=== PATIENT | male | born 1945 | race Caucasian/White ===

== ENCOUNTER 2017-01-18 00:19 | Inpatient (IN) | payer MEDICARE ==
[2017-01-18] VITALS (9 sets, daily range): BP systolic 130–161; BP diastolic 65–84; PULSE 63–97; RESP 16–20; TEMP 97.5–98.5; O2SAT 93–100
[~2017-01-18] VITALS: Ht 175.3 cm; Wt 92.5 kg
[2017-01-18] MEDS ORDERED: CLON0.5T PO (00:30)
[2017-01-18 01:26] LABS: MEAN CELL VOLUME 89.3 FL (80.0-100.0); MEAN CORPUSCULAR HEMOGLOBIN 30.2 PG (27.0-34.0); MEAN CORPUSCULAR HGB CONC 33.8 % (32.0-36.0); PLATELET COUNT 331 TH/MM3 (150-450); RED CELL DISTRIBUTION WIDTH 13.9 % (11.6-17.2); WHITE BLOOD COUNT 8.3 TH/MM3 (4.0-11.0)
[2017-01-18 01:30] LABS: HEMO FLAGS AUTO DIFF
[2017-01-18 01:40] LABS: INTERNATIONAL NORMALIZED RATIO 1.2 RATIO; PROTHROMBIN TIME - PATIENT 13.7 SEC (9.8-11.6)
[2017-01-18 01:57] LABS: ALT (GPT) 288 U/L (12-78); ANION GAP 11 MEQ/L (5-15); AST (GOT) 230 U/L (15-37); BICARBONATE 21.9 MEQ/L (21.0-32.0); BLOOD UREA NITROGEN 61 MG/DL (7-18); CHLORIDE 105 MEQ/L (98-107); GLOMERULAR FILTRATION RATE 17 ML/MIN (>89); POTASSIUM 4.2 MEQ/L (3.5-5.1); SODIUM (NA) 138 MEQ/L (136-145)
[2017-01-18 01:58] LABS: ACETAMINOPHEN LESS THAN 2.0 MCG/ML (10.0-30.0)
[2017-01-18 02:00] LABS: ALKALINE PHOSPHATASE 118 U/L (45-117); TOTAL BILIRUBIN ADULT 0.9 MG/DL (0.2-1.0)
[2017-01-18 02:05] LABS: BANDS 9 % (0-6); BASOPHILS 1 % (0-2); EOSINOPHILS 3 % (0-4); METAMYELOCYTES 1 % (0-1); MYELOCYTES 1 % (0-0); NEUTROPHIL # MANUAL DIFF 6.3 TH/MM3 (1.8-7.7); POLYS (SEG NEUTROPHILS) 65 % (16-70); WBC DIFF SAMPLE 100
[2017-01-18 02:06] LABS: PLATELET ESTIMATE SMEAR NORMAL (NORMAL); SCAN/DIFF FINAL DIFF MANUAL
[2017-01-18 02:07] LABS: HELMET CELLS 1+ (NORMAL); PLATELET MORPHOLOGY NORMAL (NORMAL)
[2017-01-18 03:23] LABS: BACTERIA, URINE RARE /hpf; BLOOD, URINE SMALL (NEG); GLUCOSE,URINE NEG (NEG); HYALINE CAST, URINE 16 /lpf (RARE); KETONE, URINE TRACE mg/dL (NEG); MUCUS URINE FEW /lpf (OCC); NITRITE,URINE NEG (NEG); PH, URINE 5.5 (5.0-8.5); RENAL EPITHELIAL CELLS <1 /hpf; SQUAMOUS EPITHELIAL CELL URINE 1 /hpf (0-5); URINE COLOR YELLOW (YELLW/STRAW)
[2017-01-18 03:24] LABS: COMMENT (UR) CATH-CULTURE IND; CULTURE IF INDICATED CATH CULTURE IND
[2017-01-18 03:29] LABS: AMPHETAMINE, URINE NEG (NEG); BARBITURATES, URINE NEG (NEG); COCAINE, URINE NEG (NEG)
--- NOTE | 2017-01-18 03:29 | PD ---
HPI Chief Complaint: Altered Mental Status Time Seen by Provider: 01:57 Travel History International Travel<30 days: Yes Contact w/Intl Traveler<30days: Yes Name of Country Traveled to: FROM [facility] Traveled to known affect area: Yes (FROM [facility]) History of Present Illness HPI The patient is a 71 year old male who presents to the [facility] emergency department with a history of arriving from [facility] on a flight earlier this evening he had been living in the area [place] the [place] have [place]. His daughter that had not seen him in 10 years arrived at the airport to pick him up and reported that he was altered. The patient reports that he did take 2 clonazepam and had 2 beers while on the flight. The patient arrives slightly confused with a GCS of 14 without any focal neurologic findings. He denies being on any other medications. He reports that he has a history of anxiety and low back pain. He reports that he had low back surgery in [facility] 2-1/2 weeks ago. The patient denies recent fevers, cough, congestion, neck pain, chest pain, shortness of breath, abdominal pain, vomiting, diarrhea, urinary symptoms, one-sided weakness, slurred speech, dizziness, facial droop, difficulty with word finding ability, or vision changes. FORMERLY [facility], [facility] Past Medical History Narrative Medical The patient's past medical history is reportedly significant for anxiety, chronic low back pain with recent low back surgery. Anxiety: Yes Diminished Hearing: No Tetanus Vaccination: < 5 Years Influenza Vaccination: No Past Surgical History Narrative Surgical The patient's past surgical history is significant for low back surgery 2-1/2 weeks ago. Surgical History: No Previous Surgery Social History Alcohol Use: Yes (2 BEER DAILY) Tobacco Use: No Substance Use: No Allergies-Medications (Allergen,Severity, Reaction): Coded Allergies: No Known Allergies (Unverified , 01/18/17) Reported Meds & Prescriptions Reported Meds & Active Scripts Active Reported Clonazepam 0.5 Mg Tab 0.5 Mg PO BID Review of Systems Except as stated in HPI: all other systems reviewed are Neg General / Constitutional: No: Fever Eyes: No: Visual changes HENT: No: Headaches Cardiovascular: No: Chest Pain or Discomfort Respiratory: No: Shortness of Breath Gastrointestinal: No: Abdominal Pain Genitourinary: No: Dysuria Musculoskeletal: No: Pain Skin: No Rash Neurologic: Positive: Change in Mentation, No: Weakness, Focal Abnormalities, Slurred Speech, Paresthesia, Sensory Disturbance Psychiatric: No: Depression Endocrine: No: Polydipsia Hematologic/Lymphatic: No: Easy Bruising Physical Exam Narrative General: The patient is a well-developed well-nourished male in no acute distress. Head and Neck exam: Head is normocephalic atraumatic. Eyes: EOMI, pupils are equal round and reactive to light. Nose: Midline septum with pink mucous membranes Mouth: Dentition unremarkable. Moist mucus membranes. Posterior oropharynx is not erythematous. No tonsillar hypertrophy. Uvula midline. Airway patent. Neck: No palpable lymphadenopathy. No nuchal rigidity. No thyromegaly. Cardiovascular: Regular rate and rhythm without murmurs, gallops, or rubs. . Lungs: Clear to auscultation bilaterally. No wheezes, rhonchi, or rales. Abdomen: Soft, without tenderness to palpation in all 4 quadrants of the abdomen. No guarding, rebound, or rigidity. Normal bowel sounds are audible. No tenderness on palpation of McBurney's point. Negative Villarreal sign. Extremities: No clubbing, cyanosis, or edema. 2+ pulses in all 4 extremities. No calf tenderness on palpation. Back: No spinous process tenderness to palpation. No costovertebral angle tenderness to palpation. Neurologic Exam: Cranial nerves 2-12 were intact on exam. Strength is 5/5 in all 4 extremities. No sensory deficits noted. The patient is oriented to person, however not place. He is oriented to year, however not situation. Skin Exam: No rash noted. Intact skin that is warm and dry. Data Data Last Documented VS Vital Signs Date Time Temp Pulse Resp B/P Pulse Ox O2 Delivery O2 Flow Rate FiO2 01/18/17 03:06 71 16 148/72 98 Room Air 01/18/17 00:23 98.4 Orders Electrocardiogram (01/18/17 00:58) Complete Blood Count With Diff (01/18/17 00:58) Comprehensive Metabolic Panel (01/18/17 00:58) Prothrombin Time / Inr (Pt) (01/18/17 00:58) Troponin I (01/18/17 00:58) Urinalysis - C+S If Indicated (01/18/17 00:58) Blood Glucose (01/18/17 00:58) Ecg Monitoring (01/18/17 00:58) Iv Access Insert/Monitor (01/18/17 00:58) Oximetry (01/18/17 00:58) Drug Screen, Random Urine (01/18/17 00:58) Alcohol (Ethanol) (01/18/17 00:58) Salicylates (Aspirin) (01/18/17 00:58) Tylenol (Acetaminophen) (01/18/17 00:58) Ct Brain W/O Iv Contrast(Rout) (01/18/17 01:58) Ammonia (01/18/17 02:47) Urinary Catheter Insert/Apply (01/18/17 02:47) Urine Culture (01/18/17 02:55) Admit Order (Ed Use Only) (01/18/17 03:36) Diet Npo (01/18/17 Breakfast) Vital Signs (Adult) JENNIFER.Q4H (01/18/17 03:34) Sodium Chlor 0.9% 1000 Ml Inj (Ns 1000 M (01/18/17 03:45) Hepatitis Profile (01/18/17 03:34) Comprehensive Metabolic Panel (01/19/17 06:00) Ondansetron Inj (Zofran Inj) (01/18/17 03:45) Labs Laboratory Tests Test 01/18/17 01/18/17 01/18/17 01:00 02:55 03:00 White Blood Count 8.3 TH/MM3 Red Blood Count 3.70 MIL/MM3 Hemoglobin 11.1 GM/DL Hematocrit 33.0 % Mean Corpuscular Volume 89.3 FL Mean Corpuscular Hemoglobin 30.2 PG Mean Corpuscular Hemoglobin 33.8 % Concent Red Cell Distribution Width 13.9 % Platelet Count 331 TH/MM3 Mean Platelet Volume 7.8 FL Neutrophils (%) (Auto) % Lymphocytes (%) (Auto) % Monocytes (%) (Auto) % Eosinophils (%) (Auto) % Basophils (%) (Auto) % Neutrophils # (Auto) TH/MM3 Lymphocytes # (Auto) TH/MM3 Monocytes # (Auto) TH/MM3 Eosinophils # (Auto) TH/MM3 Basophils # (Auto) TH/MM3 CBC Comment AUTO DIFF Differential Total Cells 100 Counted Neutrophils % (Manual) 65 % Band Neutrophils % 9 % Lymphocytes % 12 % Monocytes % 8 % Eosinophils % 3 % Basophils % 1 % Neutrophils # (Manual) 6.3 TH/MM3 Metamyelocytes 1 % Myelocytes 1 % Differential Comment FINAL DIFF MANUAL Atypical Lymphocytes % Platelet Estimate NORMAL Platelet Morphology Comment NORMAL Helmet Cells 1+ Prothrombin Time 13.7 SEC Prothromb Time International 1.2 RATIO Ratio Sodium Level 138 MEQ/L Potassium Level 4.2 MEQ/L Chloride Level 105 MEQ/L Carbon Dioxide Level 21.9 MEQ/L Anion Gap 11 MEQ/L Blood Urea Nitrogen 61 MG/DL Creatinine 3.52 MG/DL Estimat Glomerular Filtration 17 ML/MIN Rate Random Glucose 103 MG/DL Calcium Level 9.2 MG/DL Total Bilirubin 0.9 MG/DL Aspartate Amino Transf 230 U/L (AST/SGOT) Alanine Aminotransferase 288 U/L (ALT/SGPT) Alkaline Phosphatase 118 U/L Troponin I LESS THAN 0.02 NG/ML Total Protein 7.3 GM/DL Albumin 2.3 GM/DL Salicylates Level LESS THAN 1.7 MG/DL Acetaminophen Level LESS THAN 2.0 MCG/ML Ethyl Alcohol Level LESS THAN 3 MG/DL Urine Color YELLOW Urine Turbidity HAZY Urine pH 5.5 Urine Specific [place] 1.020 Urine Protein 100 mg/dL Urine Glucose (UA) NEG mg/dL Urine Ketones TRACE mg/dL Urine Occult Blood SMALL Urine Nitrite NEG Urine Bilirubin NEG Urine Urobilinogen LESS THAN 2.0 MG/DL Urine Leukocyte Esterase NEG Urine RBC 2 /hpf Urine WBC 3 /hpf Urine Squamous Epithelial 1 /hpf Cells Urine Renal Epithelial Cells <1 /hpf Urine Amorphous Sediment RARE Urine Bacteria RARE /hpf Urine Hyaline Casts 16 /lpf Urine Mucus FEW /lpf Microscopic Urinalysis Comment CATH-CULTURE IND Urine Opiates Screen POS Urine Barbiturates Screen NEG Urine Amphetamines Screen NEG Urine Benzodiazepines Screen POS Urine Cocaine Screen NEG Urine Cannabinoids Screen NEG Ammonia 18 MCMOL/L MDM Medical Decision Making Medical Screen Exam Complete: Yes Emergency Medical Condition: Yes Medical Record Reviewed: Yes Interpretation(s) Last Impressions Head CT 01/18/17 0158 Signed Impressions: Service Date/Time: Wednesday, January 18, 2017 03:56 - CONCLUSION: Normal examination. Pascual Trevizo Jr., MD Differential Diagnosis Hepatic encephalopathy, versus alcohol intoxication, versus other substance intoxication, versus sepsis with encephalopathy, versus metabolic encephalopathy , versus intracranial abnormality Narrative Course During the course of the patients emergency department visit, the patients history, examination, and differential diagnosis were reviewed with the patient. The patient had IV access obtained and blood work sent for analysis. The patient was placed on a carpenter bridge with oximetry and blood pressure monitoring. An EKG was done on arrival. The patient's EKG shows a sinus rhythm heart rate is 69, no acute ST segment elevation or depression. T waves are inverted in lead 3, V1. The patient was provided normal saline IV fluids. The patient was unable to urinate and was noted to be in acute renal failure. A Rosa catheter was placed to gravity to monitor urine output and rule out obstruction. The patients laboratory studies were reviewed and remarkable for a white count of 8.3, hemoglobin 11.1, platelets 331 with 2-5 neutrophils, 9 bands, 12 lymphs , CMP is remarkable for a BUN of 61, creatinine 3.5 to, AST 2:30, ALT 288, alkaline phosphatase 118 with a normal total bilirubin at 0.9, ammonia level was 18, troponin I less than 0.02, INR 1.2, urinalysis shows trace ketones, small occult blood, rare bacteria. Urine drug screen is positive for opiates, benzodiazepines. Alcohol level is less than 3, salicylate less than 1.7, acetaminophen less than 2 Radiology studies were reviewed and remarkable for a CT scan of the brain showed no acute abnormality. The patients results were discussed with the patient, including the plan of care. I explained that further testing and/ or monitoring is indicated based on the patients history, examination, and/ or laboratory findings. Therefore, I recommended admission for additional evaluation. The patient expressed understanding and was agreeable with this plan. The patient was admitted to the hospital in stable condition and [facility] Physician Communication Physician Communication The patient's case was discussed with who did agree to admit the patient for further evaluation and treatment at this time. Diagnosis Primary Impression: Altered mental state Qualified Code: R41.0 - Disorientation Additional Impressions: Acute renal failure Qualified Code: N17.9 - Acute renal failure, unspecified acute renal failure type Elevated liver enzymes Admitting Information Admitting Physician Requests: Admit Nichelle Kirk MD Jan 18, 2017 03:29
[2017-01-18] MEDS ORDERED: ONDANSETRON HCL 4 MG/2 ML VIAL IV PUSH PRN (03:45)
[2017-01-18] MEDS: SODIUM CHLOR 0.9% 1000 ML INJ 1,000 ML IV SCH ×2 (04:07→20:50)
--- NOTE | 2017-01-18 04:30 | RADRPT ---
EXAM DATE/TIME: 01/18/2017 03:56 [facility] COMPARISON: No previous studies available for comparison. INDICATIONS : Altered mental status, following taking xanex and drinking alcohol. RADIATION DOSE: 40.08 CTDIvol (mGy) MEDICAL HISTORY : None SURGICAL HISTORY : None. ENCOUNTER: Initial ACUITY: 1 day PAIN SCALE: 2/10 LOCATION: cranial TECHNIQUE: Multiple contiguous axial images were obtained of the head. Using automated exposure control and adj ustment of the mA and/or kV according to patient size, radiation dose was kept as low as reasonably a chievable to obtain optimal diagnostic quality images. FINDINGS: CEREBRUM: The ventricles are normal for age. No evidence of midline shift, mass lesion, hemorrhage or acute in farction. No extra-axial fluid collections are seen. POSTERIOR FOSSA: The cerebellum and brainstem are intact. The 4th ventricle is midline. The cerebellopontine angle i s unremarkable. EXTRACRANIAL: The visualized portion of the orbits is intact. SKULL: The calvaria is intact. No evidence of skull fracture. CONCLUSION: Normal examination. Pascual Trevizo Jr., MD on January 18, 2017 at 4:28 Board Certified Radiologist. This report was verified electronically.
--- NOTE | 2017-01-18 09:10 | EKG ---
Date Performed: 01/18/2017 Time Performed: 00:31:33 PTAGE: 71 years EKG: Sinus rhythm LOW QRS VOLTAGE IN PRECORDIAL LEADS BORDERLINE ECG NO PREVIOUS TRACING DOCTOR: Jose Oseguera Interpretating Date/Time 01/18/2017 09:10:13
--- NOTE | 2017-01-18 09:15 | HHI.HP ---
HPI Service [facility] Primary Care Physician Unknown Admission Diagnosis AMS, ARF, elevated lfts Diagnoses: Travel History International Travel<30 Days: Yes Contact w/Intl Traveler <30 Da: [place] Traveled to: per report patient came from [facility] History of Present Illness Pt is 71 yr old male w PMHX of back pain/lower extremity weakness was brought it to the hospital for altered mental status. Patient states he does not remember how he got here. He does remember getting to the airport in [facility] getting on the plane and admits to drinking about 3 beers yesterday with some medication and from there he does not remember the rest. He does tell me that he was on his way to [facility] to get a second surgery for his back however he was stopping to see his daughter in [place] who has made arrangements for him to get surgery within 3-4 days of arrival. Apparently, he saw a neurosurgeon back in [facility] for severe spinal strain and at that time it was recommended due to his symptoms to get emergent surgery. This occurred about 1.5 weeks ago. He was experiencing weakness right greater than left in his lower extremities. From records in the EMR, The patient reported to the ED physician that he took 2 clonazepam and had 2 beers while on the flight. The patient arrived slightly confused without any focal neurologic findings in the ED. He reported to the physician that he had low back surgery in [facility] 2-1/2 weeks ago. Denies any chest pain, shortness of breath, any cough, abdominal pain. He states he uses a walker to ambulate and had been ambulating prior to arrival here in the ED with his walker. Patient wishes to pursue further management of his back in [facility] in [place]. He denies any fevers or chills. He denies any prior history of kidney or liver disease. He does admit however that he had problem with his kidney a long time ago but that had resolved however it is unsure what the problem was. Otherwise, he says is pretty healthy. Review of Systems 10 point review of systems are negative except for those mentioned in the history of present illness. Past Family Social History Past Medical History Low back pain, lower extremity weakness Per EMR also a history of anxiety Past Surgical History Back surgery in [facility] 1-2 weeks ago Reported Medications Last Impressions Head CT 01/18/17 0158 Signed Impressions: Service Date/Time: Wednesday, January 18, 2017 03:56 - CONCLUSION: Normal examination. 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 SKIN: there is a 3-4 cm open incision in the lower back, some drainage noted. Pt unsure when last time dressing was changed. HEAD: Atraumatic. Normocephalic. EYES: Pupils equal round and reactive. Extraocular motions intact. No scleral icterus. No injection or drainage. ENT: Nose without drainage. Throat without erythema, tonsillar hypertrophy or exudate. Uvula midline. Airway patent. NECK: Trachea midline. No JVD or lymphadenopathy. Supple, nontender, no meningeal signs. CARDIOVASCULAR: Regular rate and rhythm without murmurs RESPIRATORY: Clear to auscultation. Breath sounds equal bilaterally. No wheezes GASTROINTESTINAL: Abdomen soft, non-tender, nondistended. No palpable masses. No guarding. MUSCULOSKELETAL: Extremities without edema. No joint tenderness, effusion, or edema noted. No calf tenderness. Negative Homans sign bilaterally. NEUROLOGICAL: Awake and alert, answers questions appropriately, knows he was on his way to see his daughter here in [place] however he thought that he was in [place], he knows the president is, he knows his name and his date of . Cranial nerves II through XII intact. Pt has difficulty sitting up secondary to back pain. he is able to move his lower extremities however because of the pain i cannot really assess his strength at this time. pt had to roll on his left side for me to examine his back and since wanted to remain in this position Laboratory Laboratory Tests Test 01/18/17 01/18/17 01/18/17 01:00 02:55 03:00 White Blood Count 8.3 Red Blood Count 3.70 Hemoglobin 11.1 Hematocrit 33.0 Mean Corpuscular Volume 89.3 Mean Corpuscular Hemoglobin 30.2 Mean Corpuscular Hemoglobin 33.8 Concent Red Cell Distribution Width 13.9 Platelet Count 331 Mean Platelet Volume 7.8 Neutrophils (%) (Auto) Lymphocytes (%) (Auto) Monocytes (%) (Auto) Eosinophils (%) (Auto) Basophils (%) (Auto) Neutrophils # (Auto) Lymphocytes # (Auto) Monocytes # (Auto) Eosinophils # (Auto) Basophils # (Auto) CBC Comment AUTO DIFF Differential Total Cells 100 Counted Neutrophils % (Manual) 65 Band Neutrophils % 9 Lymphocytes % 12 Monocytes % 8 Eosinophils % 3 Basophils % 1 Neutrophils # (Manual) 6.3 Metamyelocytes 1 Myelocytes 1 Differential Comment FINAL DIFF MANUAL Atypical Lymphocytes Platelet Estimate NORMAL Platelet Morphology Comment NORMAL Helmet Cells 1+ Prothrombin Time 13.7 Prothromb Time International 1.2 Ratio Sodium Level 138 Potassium Level 4.2 Chloride Level 105 Carbon Dioxide Level 21.9 Anion Gap 11 Blood Urea Nitrogen 61 Creatinine 3.52 Estimat Glomerular Filtration 17 Rate Random Glucose 103 Calcium Level 9.2 Total Bilirubin 0.9 Aspartate Amino Transf 230 (AST/SGOT) Alanine Aminotransferase 288 (ALT/SGPT) Alkaline Phosphatase 118 Troponin I LESS THAN 0.02 Total Protein 7.3 Albumin 2.3 Salicylates Level LESS THAN 1.7 Acetaminophen Level LESS THAN 2.0 Ethyl Alcohol Level LESS THAN 3 Urine Color YELLOW Urine Turbidity HAZY Urine pH 5.5 Urine Specific [place] 1.020 Urine Protein 100 Urine Glucose (UA) NEG Urine Ketones TRACE Urine Occult Blood SMALL Urine Nitrite NEG Urine Bilirubin NEG Urine Urobilinogen LESS THAN 2.0 Urine Leukocyte Esterase NEG Urine RBC 2 Urine WBC 3 Urine Squamous Epithelial 1 Cells Urine Renal Epithelial Cells <1 Urine Amorphous Sediment RARE Urine Bacteria RARE Urine Hyaline Casts 16 Urine Mucus FEW Microscopic Urinalysis Comment CATH-CULTURE IND Urine Opiates Screen POS Urine Barbiturates Screen NEG Urine Amphetamines Screen NEG Urine Benzodiazepines Screen POS Urine Cocaine Screen NEG Urine Cannabinoids Screen NEG Ammonia 18 Date/Time Procedure Status Source Growth 01/18/17 02:55 Urine Culture Received Urine Catheterized Urine Pending Result Diagram: 01/18/179901/18/1799 Imaging Last Impressions Head CT 01/18/17 0158 Signed Impressions: Service Date/Time: Monday, January 18, 2017 03:56 - CONCLUSION: Normal examination. Pascual Trevizo Jr., MD Assessment and Plan Assessment and Plan Encephalopathy: Patient found to have a urinary tract infection. The UA. I have started Rocephin IV every 24 hours. Urine culture is pending. Will follow -up. The patient did admit drinking to be 2-3 beers on the flight on his way here and to look for benzos in addition to his alcohol intake, this definitely can cause altered mental status. Alcohol abuse: Patient missed to drinking 3-4 cans of beer on a daily basis. We 'll start him on thiamine, folate and multivitamin. Ativan as needed for seizures. Seizure and fall precautions in place. UTI: see above. on Abx Back sx: recently had back sx in [facility] 1-2 weeks ago. he has an open wound w some drainage noted. wound culture obtained. meat and seafood manager consulted for assistance w wound care dressings. Will at least get an MRI without contrast to assess his lumbar spine (no contrast due to CRISTINO) Acute renal failure: baseline unknown. Start IV fluids and monitor. velez in place. bladder/renal u/s transaminitis: hepatic panel ordered. liver u/s ordered. pt counseled to quit drinking. FEN: NS@100ml/hr, monitor electrolytes, regular diet DVT proph: heparin/ SCD/SHYAM Code Status full Discussed Condition With patient and RN Vera Villalobos MD Jan 18, 2017 09:15
[2017-01-18] MEDS ORDERED: LORazepam 2 MG/ML VIAL IV PUSH PRN (09:30)
[2017-01-18] MEDS: FOLIC ACID 1 MG TAB PO SCH (11:26)
[2017-01-18] MEDS: THIAMINE HCL 100 MG TAB PO SCH (11:26)
[2017-01-18] MEDS: MULTIVITAMIN TAB PO SCH (11:26)
[2017-01-18] MEDS: cefTRIAXone INJ 1,000 MG in SODIUM CHLORIDE 0.9% INJ 100 ML IV SCH (11:27)
[2017-01-18] MEDS ORDERED: SODIUM CHLORIDE 0.9% FLUSH 10 ML FLUSH IV FLUSH PRN (12:00)
[2017-01-18] MEDS ORDERED: NALOXONE HCL 0.4 MG/ML AMP IV PRN (12:00)
[2017-01-18] MEDS ORDERED: chlordiazePOXIDE 25 MG CAP PO PRN (14:30)
[2017-01-18] MEDS: LORazepam 2 MG/ML VIAL IV PUSH PRN (14:50)
--- NOTE | 2017-01-18 18:12 | RADRPT ---
EXAM DATE/TIME: 01/18/2017 12:25 [facility] COMPARISON: No previous studies available for comparison. INDICATIONS : Increased lab values. MEDICAL HISTORY : Anxiety. Increased lab values. SURGICAL HISTORY : None. ENCOUNTER: Initial ACUITY: 1 day PAIN SCORE: 0/10 LOCATION: Bilateral upper quadrant MEASUREMENTS: LIVER: 18.9 cm length COMMON DUCT: 4 mm RIGHT KIDNEY: 11.4 x 5.8 x 5.8 cm LEFT KIDNEY: 12.3 x 4.2 x 6.2 cm SPLEEN: 12.6 cm length AORTA: 2.4cm maximal FINDINGS: Pancreas not well-visualized. Liver enlarged to about 19 cm. Mild gallbladder sludge. No gallstones o r biliary ductal dilatation. No hydronephrosis. 3.8 cm cyst lower pole right kidney. Spleen and aorta are unremarkable. CONCLUSION: 1. Mild hepatic enlargement. 2. Gallbladder sludge without biliary ductal dilatation. 3. No hydronephrosis or perinephric fluid. No free fluid. Dl Sales MD on January 18, 2017 at 18:09 Board Certified Radiologist. This report was verified electronically.
[2017-01-18] MEDS: SODIUM CHLORIDE 0.9% FLUSH 10 ML FLUSH IV FLUSH SCH (20:50)
[2017-01-18] MEDS: HEPARIN SODIUM - SQ 10,000 UNITS/ML VIAL SQ SCH (21:29)
[2017-01-18] MEDS ORDERED: HYDROmorphone HCL PF 1 MG/ML VIAL SQ ONE (21:30)
[2017-01-19 04:05] VITALS: BP 150/74; RESP 18; TEMP 97.4; O2SAT 97
[2017-01-19] MEDS: LORazepam 2 MG/ML VIAL IV PUSH PRN (05:27)
--- NOTE | 2017-01-19 07:46 | HHI.PR ---
Subjective Remarks Having pain in his back when moving, at times it goes up to 9/10. Denies any CP/ SOB/N/V Denies exposure to hepatitis C in the past and also denies any IV drug use. I spoke w pt's daughter who hasn't seen her father for the past 10 years. 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 From her understanding, pt had emergent sx and then was recommended to come to the [facility] to have a second sx in [place] the [place] where pt would be covered. However, when he arrived in [facility] pt was altered and was brought here. Daughter states that pt drinks a lot more than 3-4 beers. he retired in [facility] and enjoys fishing. Her preference would be for patient to be treated here as she lives here in [facility] but she doesn't know if that will be covered. Objective Vitals Vital Signs Date Time Temp Pulse Resp B/P Pulse Ox O2 Delivery O2 Flow Rate FiO2 01/19/17 04:05 97.4 18 150/74 97 01/18/17 23:33 97.5 63 19 152/72 97 01/18/17 20:05 98.0 68 18 140/75 100 01/18/17 13:02 97.8 97 20 161/84 99 01/18/17 08:11 97.7 70 18 130/69 96 I/O 01/18/17 01/18/17 01/18/17 01/19/17 01/19/17 01/19/17 07:00 15:00 23:00 07:00 15:00 23:00 Output Total 1200 ml Balance -1200 ml Output Urine Total 1200 ml Result Diagram: 01/18/17 0100 01/18/17 0100 Imaging Last Impressions Head CT 01/18/17 0158 Signed Impressions: Service Date/Time: Wednesday, January 18, 2017 03:56 - CONCLUSION: Normal examination. Pascual Trevizo Jr., MD Abdomen Ultrasound 01/18/17 0000 Signed Impressions: Service Date/Time: Wednesday, January 18, 2017 12:25 - CONCLUSION: 1. Mild hepatic enlargement. 2. Gallbladder sludge without biliary ductal dilatation. 3. No hydronephrosis or perinephric fluid. No free fluid. Dl Sales MD Objective Remarks GENERAL: This is a well-nourished, well-developed patient, appears comfortable at this time SKIN: there is a 3-4 cm open incision in the lower back, not examined this morning CARDIOVASCULAR: Regular rate and rhythm without murmurs RESPIRATORY: Clear to auscultation. Breath sounds equal bilaterally. No wheezes GASTROINTESTINAL: Abdomen soft, non-tender, nondistended. No palpable masses. No guarding. MUSCULOSKELETAL: Extremities without edema. NEUROLOGICAL: Awake and alert, answers questions appropriately, right lower extremity currently 3/5 and left 3.5-4/ 5. pt has pain w severe pain w movement. sensation is intact. A/P Assessment and Plan Encephalopathy: Patient found to have a urinary tract infection. The UA. I have started Rocephin IV every 24 hours. Urine culture is pending. Will follow -up. The patient did admit drinking to be 2-3 beers on the flight on his way here and took benzos in addition to his alcohol intake, this definitely can cause altered mental status. Alcohol abuse: Patient admits to drinking 3-4 cans of beer on a daily basis. however per daughter he drinks more than this. on thiamine, folate and multivitamin. Ativan as needed for seizures. Librium scheduled. Seizure and fall precautions in place. currently sitter at bedside, no restraints. UTI: see above. on Abx Back sx: recently had back sx in [facility] 1-2 weeks ago. he has an open wound w some drainage noted. Per daughter apparently pt went swimming a couple days after sx. wound culture obtained. rawhide bone roller consulted for assistance w wound care dressings. I have ordered an MRI without contrast to assess his lumbar spine (no contrast due to CRISTINO) however unsure if pt has any metal therefore will order lumbar spine x-rays. I will place a neurosx consult for further recommendations as pt continues to have excruciating pain. Acute renal failure: baseline unknown. On IV fluids and monitor. velez in place. bladder/renal u/s. Labs not yet available this morning. transaminitis: hepatic panel ordered. liver u/s Gallbladder sludge without biliary ductal dilatatio. pt counseled to quit drinking. Hep C +. GI consult in place. FEN: NS@100ml/hr, monitor electrolytes, regular diet DVT proph: heparin/ SCD/SHYAM Discharge Planning d/c pending further work-up and clinical improvement Vera Villalobos MD Jan 19, 2017 07:46
[2017-01-19 07:59] VITALS: BP 140/74; PULSE 71; RESP 19; TEMP 98; O2SAT 98
[2017-01-19] MEDS ORDERED: MORPHINE SULFATE 4 MG/ML INJ IV PUSH PRN (08:00)
[2017-01-19] MEDS: HEPARIN SODIUM - SQ 10,000 UNITS/ML VIAL SQ SCH ×2 (08:17→20:45)
[2017-01-19] MEDS: FOLIC ACID 1 MG TAB PO SCH (08:17)
[2017-01-19] MEDS: MULTIVITAMIN TAB PO SCH (08:17)
[2017-01-19] MEDS: THIAMINE HCL 100 MG TAB PO SCH (08:17)
[2017-01-19] MEDS: cefTRIAXone INJ 1,000 MG in SODIUM CHLORIDE 0.9% INJ 100 ML IV SCH (08:17)
[2017-01-19] MEDS: ACETAMINOPHEN/HYDROcodone 325 MG/10 MG TAB PO PRN (08:18)
[2017-01-19] MEDS: SODIUM CHLORIDE 0.9% FLUSH 10 ML FLUSH IV FLUSH SCH ×2 (08:18→20:22)
[2017-01-19 09:41] LABS: AUTOMATED NEUTROPHIL # 4.9 TH/MM3 (1.8-7.7); BASOPHIL # 0.1 TH/MM3 (0-0.2); BASOPHIL % 0.9 % (0.0-2.0); EOSINOPHIL # 0.4 TH/MM3 (0-0.4); EOSINOPHIL % 5.8 % (0.0-4.0); HEMATOCRIT 29.9 % (39.0-51.0); LYMPH % 19.5 % (9.0-44.0); LYMPHOCYTE # 1.5 TH/MM3 (1.0-4.8); MEAN CELL VOLUME 88.8 FL (80.0-100.0); MEAN CORPUSCULAR HEMOGLOBIN 30.5 PG (27.0-34.0); MEAN CORPUSCULAR HGB CONC 34.4 % (32.0-36.0); MONO % 10.7 % (0.0-8.0); NEUT % 63.1 % (16.0-70.0); PLATELET COUNT 252 TH/MM3 (150-450); RED BLOOD COUNT 3.37 MIL/MM3 (4.50-5.90); RED CELL DISTRIBUTION WIDTH 13.6 % (11.6-17.2); WHITE BLOOD COUNT 7.7 TH/MM3 (4.0-11.0)
[2017-01-19 09:48] LABS: HEMO FLAGS AUTO DIFF
--- NOTE | 2017-01-19 09:53 | RADRPT ---
EXAM DATE/TIME: 01/19/2017 09:38 [facility] COMPARISON: No previous studies available for comparison. INDICATIONS : Mid back pain due to open wound. MEDICAL HISTORY : None. SURGICAL HISTORY : None. ENCOUNTER: Initial ACUITY: 2 days PAIN SCORE: 10/10 LOCATION: middle back FINDINGS: There is straightening of the lumbar lordosis. There is marked narrowing of the L5-S1 interspace wit h sclerosis of vertebral endplates. No evidence of spondylolisthesis. Vertebral body height is main tained. Vascular calcification in the distal aorta. Moderate hypertrophic changes in the posterior elements L4-S1. Pedicle signal levels. Gas is seen throughout loops of small and large bowel. Blad aidan catheter in place. CONCLUSION: Advanced discogenic degenerative changes L5-S1 without evidence of spondylolisthesis. Pascual Gaming MD on January 19, 2017 at 9:50 Board Certified Radiologist. This report was verified electronically.
[2017-01-19 10:03] LABS: CHLORIDE 110 MEQ/L (98-107); POTASSIUM 4.2 MEQ/L (3.5-5.1); SODIUM (NA) 142 MEQ/L (136-145)
[2017-01-19 10:15] LABS: BANDS 1 % (0-6); EOSINOPHILS 9 % (0-4); METAMYELOCYTES 3 % (0-1); NEUTROPHIL # MANUAL DIFF 5.9 TH/MM3 (1.8-7.7); PLATELET ESTIMATE SMEAR NORMAL (NORMAL); PLATELET MORPHOLOGY NORMAL (NORMAL); POLYS (SEG NEUTROPHILS) 73 % (16-70); SCAN/DIFF FINAL DIFF MANUAL; WBC DIFF SAMPLE 100
[2017-01-19 10:16] LABS: ALKALINE PHOSPHATASE 125 U/L (45-117); ALT (GPT) 287 U/L (12-78); ANION GAP 8 MEQ/L (5-15); AST (GOT) 215 U/L (15-37); BICARBONATE 23.9 MEQ/L (21.0-32.0); BLOOD UREA NITROGEN 37 MG/DL (7-18); GLOMERULAR FILTRATION RATE 44 ML/MIN (>89); TOTAL BILIRUBIN ADULT 0.5 MG/DL (0.2-1.0)
--- NOTE | 2017-01-19 11:12 | PD.CONS ---
HPI History of Present Illness This is a 71 year old [gentleman] who came to the ER yesterday for altered mental status and has been found to have elevated LFTs and pos for Hep C antibody. He lives in [facility] and flew over here yesterday. Pt denies abdominal pain, joint aches, jaundice, fever, change in bowel habits, nausea or vomiting. He says he had 3-4 beers last night and that he drinks more than that when he is in the [place]. Pt is poor historian and mostly non- contributory. (Jennifer Srinivasan) PFSH Past Medical History Low back pain, lower extremity weakness Per EMR also a history of anxiety Past Surgical History Back surgery in [facility] 1-2 weeks ago (Jennifer Srinivasan) Coded Allergies: No Known Allergies (Unverified , 01/18/17) Medications Current Medications Medications (Trade) Dose Ordered Sig/Sukhwinder Route PRN Reason Start Time Stop Time Status Last Admin Dose Admin Sodium Chloride (NS 1000 ml Inj) 1,000 ml @ 100 mls/hr Q10H IV 01/18/17 03:45 01/18/17 04:07 Ondansetron HCl 4 mg 4 mg Q8HR PRN IV PUSH NAUSEA 01/18/17 03:45 Ceftriaxone Sodium/Sodium Chloride (Rocephin Inj/NS Inj) 100 ml @ 200 mls/hr Q24H IV 01/18/17 09:00 01/19/17 08:17 Thiamine HCl (Vitamin B1) 100 mg DAILY PO 01/18/17 10:00 01/19/17 08:17 Folic Acid (Folate) 1 mg DAILY PO 01/18/17 10:00 01/19/17 08:17 Multivitamins (Theragran) 1 tab DAILY PO 01/18/17 10:00 01/19/17 08:17 Heparin Sodium (Porcine) (Heparin Inj) 5,000 units Q12HR SQ 01/18/17 21:00 01/19/17 08:17 Sodium Chloride (NS Flush) 2 ml UNSCH PRN IV FLUSH FLUSH AFTER USING IV ACCESS 01/18/17 12:00 Sodium Chloride (NS Flush) 2 ml BID IV FLUSH 01/18/17 21:00 Naloxone HCl (Narcan Inj) 0.4 mg UNSCH PRN IV SEE LABEL COMMENTS 01/18/17 12:00 Lorazepam (Ativan Inj) 1 mg Q2H PRN IV PUSH SEIZURES/agitation 01/18/17 15:30 01/19/17 05:27 Chlordiazepoxide (Librium) 25 mg TID PRN PO SEVERE ANXIETY OR AGITATION 01/18/17 14:30 01/18/17 15:36 Morphine Sulfate (Morphine Inj) 2 mg Q4HR PRN IV PUSH BREAKTHROUGH PAIN 01/19/17 08:00 Acetaminophen/ Hydrocodone Bitart ([place] 5-325 Mg) 1 tab Q4H PRN PO PAIN SCALE 3 TO 5 01/19/17 08:00 Acetaminophen/ Hydrocodone Bitart ([place] 10-325 Mg) 1 tab Q6H PRN PO PAIN SCALE 6 TO 10 01/19/17 08:00 01/19/17 08:18 Senna/Docusate Sodium (Iris-Colace) 1 tab BID PRN PO CONSTIPATION 01/19/17 08:00 Family History mother and father in the their 60's from colon cancer, per EMR Social History Pt admits 3-4 beers daily or more, further hx from EMR as pt did not contribute further: drinks 4-5 beers a day, denies any prior hx of withdrawals or seizures denies any smoking hx or illegal drug use 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 hasn't seen daughter x 10 years (Jennifer Srinivasan) Review of Systems Constitutional: DENIES: Fatigue, Fever Ears, nose, mouth, throat: DENIES: Hearing loss Respiratory: DENIES: Cough, Wheezing Cardiovascular: DENIES: Chest pain Gastrointestinal: DENIES: Abdominal pain, Bloody stools, Constipation, Diarrhea , Nausea, Vomiting, Anorexia Musculoskeletal: COMPLAINS OF: Back pain, DENIES: Joint pain Integumentary: DENIES: Abnormal pigmentation, Pruritus, Jaundice Hematologic/lymphatic: DENIES: Bruising (Jennifer Srinivasan) GI Exam Vitals I&O Vital Signs Date Time Temp Pulse Resp B/P Pulse Ox O2 Delivery O2 Flow Rate FiO2 01/19/17 07:59 98.0 71 19 140/74 98 01/19/17 04:05 97.4 18 150/74 97 01/18/17 23:33 97.5 63 19 152/72 97 01/18/17 20:05 98.0 68 18 140/75 100 01/18/17 13:02 97.8 97 20 161/84 99 I/O 01/18/17 01/18/17 01/18/17 01/19/17 01/19/17 01/19/17 07:00 15:00 23:00 07:00 15:00 23:00 Output Total 1200 ml Balance -1200 ml Output Urine Total 1200 ml Imaging Last Impressions Lumbar Spine X-Ray 01/19/17 0000 Signed Impressions: Service Date/Time: January 09:38 - CONCLUSION: Advanced discogenic degenerative changes L5-S1 without evidence of spondylolisthesis. Pascual Gaming MD Head CT 01/18/17 0158 Signed Impressions: Service Date/Time: Wednesday, January 18, 2017 03:56 - CONCLUSION: Normal examination. Pascual Trevizo Jr., MD Abdomen Ultrasound 01/18/17 0000 Signed Impressions: Service Date/Time: Wednesday, January 18, 2017 12:25 - CONCLUSION: 1. Mild hepatic enlargement. 2. Gallbladder sludge without biliary ductal dilatation. 3. No hydronephrosis or perinephric fluid. No free fluid. Dl Sales MD Laboratory Test 01/19/17 09:11 White Blood Count 7.7 TH/MM3 Red Blood Count 3.37 MIL/MM3 Hemoglobin 10.3 GM/DL Hematocrit 29.9 % Mean Corpuscular Volume 88.8 FL Mean Corpuscular Hemoglobin 30.5 PG Mean Corpuscular Hemoglobin 34.4 % Concent Red Cell Distribution Width 13.6 % Platelet Count 252 TH/MM3 Mean Platelet Volume 7.5 FL Neutrophils (%) (Auto) 63.1 % Lymphocytes (%) (Auto) 19.5 % Monocytes (%) (Auto) 10.7 % Eosinophils (%) (Auto) 5.8 % Basophils (%) (Auto) 0.9 % Neutrophils # (Auto) 4.9 TH/MM3 Lymphocytes # (Auto) 1.5 TH/MM3 Monocytes # (Auto) 0.8 TH/MM3 Eosinophils # (Auto) 0.4 TH/MM3 Basophils # (Auto) 0.1 TH/MM3 CBC Comment AUTO DIFF Differential Total Cells 100 Counted Neutrophils % (Manual) 73 % Band Neutrophils % 1 % Lymphocytes % 7 % Monocytes % 7 % Eosinophils % 9 % Neutrophils # (Manual) 5.9 TH/MM3 Metamyelocytes 3 % Differential Comment FINAL DIFF MANUAL Platelet Estimate NORMAL Platelet Morphology Comment NORMAL Red Cell Morphology Comment NORMAL Sodium Level 142 MEQ/L Potassium Level 4.2 MEQ/L Chloride Level 110 MEQ/L Carbon Dioxide Level 23.9 MEQ/L Anion Gap 8 MEQ/L Blood Urea Nitrogen 37 MG/DL Creatinine 1.57 MG/DL Estimat Glomerular Filtration 44 ML/MIN Rate Random Glucose 93 MG/DL Calcium Level 9.2 MG/DL Total Bilirubin 0.5 MG/DL Aspartate Amino Transf 215 U/L (AST/SGOT) Alanine Aminotransferase 287 U/L (ALT/SGPT) Alkaline Phosphatase 125 U/L Total Protein 6.6 GM/DL Albumin 2.1 GM/DL Date/Time Procedure Status Source Growth 01/18/17 09:10 Gram Stain - Final Resulted Wound Back 01/18/17 09:10 Wound Culture - Preliminary Resulted Staphylococcus Aureus Pseudomonas Species 01/18/17 02:55 Urine Culture Received Urine Catheterized Urine Pending Physical Examination HEENT: EOMI; normocephalic; atraumatic; no jaundice. NECK: Neck is supple, no JVD, no lymphadenopathy. CHEST: Chest is clear to auscultation and percussion. CARDIAC: Regular rate and rhythm with no murmur gallop or rubs. ABDOMEN: Soft, nondistended, nontender; no hepatosplenomegaly; bowel sounds are present in all four quadrants. EXTREMITIES: No clubbing, cyanosis, or edema. SKIN: Normal; no rash; no jaundice. 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 (Jennifer Srinivasan) Assessment and Plan Plan ASSESSMENT: - elevated LFTs AST 215, ALT 287, ALP 125. Poss r/t hep C infection but will order additional lab tests to r/o other cause. US 01/18/17----> mild hepatic enlargement, gallbladder sludge without biliary ductal dilatation - pos hep C antibody, viral load and genotype pending. PLAN: - liver immunology, serology, iron studies - await results hep C viral load and genotype - urged ETOH cessation This pt was seen by myself and Dr. Turner and this note is written on his behalf. (Jennifer Srinivasan) Physician Comments Seen and examined with [employer], [facility] ordered. Monitor ammonia levels. Thank you. (Rayray Turner MD) Jennifer Srinivasan Jan 19, 2017 11:12 Rayray Turner MD Jan 19, 2017 19:07
[2017-01-19 11:35] VITALS: BP 143/74; PULSE 58; RESP 19; TEMP 98; O2SAT 100
[2017-01-19 12:48] LABS: TRANSFERRIN IRON PROFILE 123 MG/DL (200-360)
[2017-01-19 12:51] LABS: FERRITIN 1376 NG/ML (26-388)
[2017-01-19] MEDS: DOCUSATE SODIUM 50 MG/SENNA 8.6 MG TAB PO PRN (16:35)
[2017-01-19] MEDS: PIPERACIL-TAZO 3.375 GM PREMIX 50 ML IV SCH (16:36)
[2017-01-19] MEDS ORDERED: PADIMATE (CHAPSTICK) 4.5 GM TUBE TOPICAL PRN (18:00)
[2017-01-19 20:17] VITALS: BP 128/74; PULSE 76; RESP 20; TEMP 98.3; O2SAT 96
[2017-01-19] MEDS: SODIUM CHLOR 0.9% 1000 ML INJ 1,000 ML IV SCH (20:46)
[2017-01-19 23:13] VITALS: BP 136/73; PULSE 82; RESP 20; TEMP 98.2; O2SAT 95
[2017-01-20] VITALS (8 sets, daily range): BP systolic 126–138; BP diastolic 70–84; PULSE 64–80; RESP 18–20; TEMP 97.6–99.1; O2SAT 94–100
[2017-01-20] MEDS: PIPERACIL-TAZO 3.375 GM PREMIX 50 ML IV SCH ×2 (01:24→09:36)
[2017-01-20] MEDS: SODIUM CHLOR 0.9% 1000 ML INJ 1,000 ML IV SCH (05:04)
[2017-01-20] MEDS: ACETAMINOPHEN/HYDROcodone 325 MG/10 MG TAB PO PRN (06:25)
[2017-01-20 08:03] LABS: ALKALINE PHOSPHATASE 143 U/L (45-117); ALT (GPT) 285 U/L (12-78); ANION GAP 7 MEQ/L (5-15); AST (GOT) 206 U/L (15-37); BICARBONATE 23.4 MEQ/L (21.0-32.0); BLOOD UREA NITROGEN 25 MG/DL (7-18); CHLORIDE 109 MEQ/L (98-107); GLOMERULAR FILTRATION RATE 48 ML/MIN (>89); POTASSIUM 4.3 MEQ/L (3.5-5.1); SODIUM (NA) 139 MEQ/L (136-145); TOTAL BILIRUBIN ADULT 0.7 MG/DL (0.2-1.0)
[2017-01-20] MEDS: SODIUM CHLORIDE 0.9% FLUSH 10 ML FLUSH IV FLUSH SCH ×2 (09:00→21:00)
[2017-01-20] MEDS: THIAMINE HCL 100 MG TAB PO SCH (09:29)
[2017-01-20] MEDS: FOLIC ACID 1 MG TAB PO SCH (09:29)
[2017-01-20] MEDS: MULTIVITAMIN TAB PO SCH (09:29)
[2017-01-20] MEDS: cefTRIAXone INJ 1,000 MG in SODIUM CHLORIDE 0.9% INJ 100 ML IV SCH (09:30)
[2017-01-20] MEDS: HEPARIN SODIUM - SQ 10,000 UNITS/ML VIAL SQ SCH (09:32)
--- NOTE | 2017-01-20 11:14 | RADRPT ---
EXAM DATE/TIME: 01/20/2017 10:37 [facility] COMPARISON: SPINE LUMBAR LTD (AP & LAT), January 19, 2017, 9:38. INDICATIONS : Mri screening abdomen. MEDICAL HISTORY : None. SURGICAL HISTORY : Discectomy, lumbar. ENCOUNTER: Subsequent ACUITY: 2 days PAIN SCORE: 10/10 LOCATION: Abdomen. FINDINGS: AP of the chest demonstrate the lungs to be symmetrically aerated without evidence of mass, infiltrat e or effusion. The cardio-mediastinal contours are unremarkable. Osseous structures are intact. No MRI incompatible foreign body is identified. CONCLUSION: 1. No acute cardiopulmonary findings. Anastacio Childress MD on January 20, 2017 at 11:12 Board Certified Radiologist. This report was verified electronically.
--- NOTE | 2017-01-20 11:17 | RADRPT ---
EXAM DATE/TIME: 01/20/2017 10:37 [facility] COMPARISON: SPINE LUMBAR LTD (AP & LAT), January 19, 2017, 9:38. INDICATIONS : Pre screening abdomen for mri. MEDICAL HISTORY : None. SURGICAL HISTORY : Discectomy, lumbar. ENCOUNTER: Subsequent ACUITY: 2 days PAIN SCORE: 10/10 LOCATION: Abdomen. FINDINGS: There are degenerative changes in the lumbar spine and hips. Bowel gas pattern is within normal limit s. No metallic foreign bodies identified. CONCLUSION: 1. No metallic foreign bodies identified. 2. Degenerative changes in the lumbar spine and hips. Anastacio Childress MD on January 20, 2017 at 11:15 Board Certified Radiologist. This report was verified electronically.
[2017-01-20] MEDS ORDERED: CISATRACURIUM BESYLATE 10 MG/5 ML VIAL IV PUSH ONE (12:00)
[2017-01-20] MEDS ORDERED: PROPOFOL 200 MG/20 ML AMP IV ONE (12:00)
[2017-01-20] MEDS ORDERED: LACTATED RINGER'S 1000 ML INJ 1,000 ML IV ONE (12:00)
[2017-01-20] MEDS ORDERED: ONDANSETRON HCL 4 MG/2 ML VIAL IV PUSH ONE (12:00)
[2017-01-20 12:17] LABS: HEMATOCRIT 29.4 % (39.0-51.0); MEAN CORPUSCULAR HEMOGLOBIN 30.6 PG (27.0-34.0); MEAN CORPUSCULAR HGB CONC 34.8 % (32.0-36.0); PLATELET COUNT 192 TH/MM3 (150-450); RED BLOOD COUNT 3.34 MIL/MM3 (4.50-5.90); RED CELL DISTRIBUTION WIDTH 13.5 % (11.6-17.2); WHITE BLOOD COUNT 7.8 TH/MM3 (4.0-11.0)
[2017-01-20 12:20] LABS: HEMO FLAGS AUTO DIFF
--- NOTE | 2017-01-20 12:52 | PD.ID.CON ---
History of Present Illness Service ID Consult Requested By Dr Villalobos Reason for Consult L spine infection Primary Care Physician Unknown Diagnoses: History of Present Illness 71 male resides in [facility] was brought by his daughter after she met him off the plane She noticed new onset confusion unsteady gait. 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 1-2 mos ago He apparently developped back pain which got severe. It si not clear if that happened beforre or after surgery He brought some records from [facility] and MRI done last month showed along with degenerative L spine dz also ? diskitis L 3-4 Pt has no fever, but has some bandemia His wound clx is + for panS PSAE and MSSA He is on zosyn Review of Systems ROS Limitations: Altered Mental Status (confused), Poor Historian Past Family Social History Allergies: Coded Allergies: No Known Allergies (Unverified , 01/18/17) Past Medical History Low back pain, lower extremity weakness Per EMR also a history of anxiety Past Surgical History Back surgery in [facility] 1-2 weeks ago Active Ordered Medications Medications where reviewed in EMR Antibiotics Include: zosyn Family History mother and father in the their 60's from colon cancer Social History drinks 4-5 beers a day, denies any prior hx of withdrawals or seizures denies any smoking hx or illegal drug use resides in [facility] Physical Exam Vital Signs Vital Signs Date Time Temp Pulse Resp B/P Pulse Ox O2 Delivery O2 Flow Rate FiO2 01/20/17 12:00 99.1 64 18 126/70 97 01/20/17 09:00 98.8 66 18 133/72 96 01/20/17 03:30 98.0 80 19 132/72 95 01/19/17 23:13 98.2 82 20 136/73 95 01/19/17 20:17 98.3 76 20 128/74 96 01/19/17 16:41 14 Physical Exam CONSTITUTIONAL/GENERAL: This is an adequately nourished patient, in no apparent distress. TUBES/LINES/DRAINS: SKIN: No jaundice, rashes, or lesions. Skin temperature appropriate. Not diaphoretic. HEAD: Atraumatic. Normocephalic. EYES: Pupils equal and round and reactive. Extraocular motions intact. No scleral icterus. No injection or drainage. Fundi not examined. ENT: Hearing grossly normal. Nose without bleeding or purulent drainage. Oral mucosae without visible erythema, exudates, masses, or lesions. NECK: Trachea midline. Supple, nontender. No palpable thyroid enlargement or nodularity. CARDIOVASCULAR: Regular rate and rhythm without murmurs, gallops, or rubs. No JVD. Peripheral pulses symmetric. RESPIRATORY/CHEST: Symmetric, unlabored respirations. Clear to auscultation. Breath sounds equal bilaterally. No wheezes, rales, or rhonchi. GASTROINTESTINAL: Abdomen soft, non-tender, nondistended. No hepato-splenomegaly , or palpable masses. No guarding. Bowel sounds present. GENITOURINARY: Without palpable bladder distension. Rosa catheter in place with slightly cloudy urine MUSCULOSKELETAL: Extremities without clubbing, cyanosis, or edema. No joint tenderness or effusion noted. No calf tenderness. No mottling or clubbing. BACK: open linear wound in L spine area with small amount of odorless clear dc + back pain with any attempt to move LYMPHATICS: No palpable cervical or supraclavicular adenopathy. NEUROLOGICAL: Awake and alert. Confused. Unreliable historian. Oriented x 1-2 Motor and sensory grossly within normal limits upper extremeties and LLE Moves only 2/5 . Follows commands. PSYCHIATRIC: calm and cooperative Laboratory Laboratory Tests Test 01/20/17 01/20/17 07:10 12:00 Sodium Level 139 Potassium Level 4.3 Chloride Level 109 Carbon Dioxide Level 23.4 Anion Gap 7 Blood Urea Nitrogen 25 Creatinine 1.44 Estimat Glomerular Filtration 48 Rate Random Glucose 126 Calcium Level 9.1 Total Bilirubin 0.7 Aspartate Amino Transf 206 (AST/SGOT) Alanine Aminotransferase 285 (ALT/SGPT) Alkaline Phosphatase 143 Total Protein 6.5 Albumin 1.9 White Blood Count 7.8 Red Blood Count 3.34 Hemoglobin 10.2 Hematocrit 29.4 Mean Corpuscular Volume 88.0 Mean Corpuscular Hemoglobin 30.6 Mean Corpuscular Hemoglobin 34.8 Concent Red Cell Distribution Width 13.5 Platelet Count 192 Mean Platelet Volume 7.3 Neutrophils (%) (Auto) Lymphocytes (%) (Auto) Monocytes (%) (Auto) Eosinophils (%) (Auto) Basophils (%) (Auto) Neutrophils # (Auto) Lymphocytes # (Auto) Monocytes # (Auto) Eosinophils # (Auto) Basophils # (Auto) CBC Comment AUTO DIFF Date/Time Procedure Status Source Growth 01/18/17 09:10 Gram Stain - Final Complete Wound Back 01/18/17 09:10 Wound Culture - Final Complete Staphylococcus Aureus Pseudomonas Aeruginosa 01/18/17 02:55 Urine Culture - Final Complete Urine Catheterized Urine NO GROWTH IN 48 HOURS. Result Diagram: 01/20/17 1200 01/20/17 0710 Imaging Last Impressions Chest X-Ray 01/20/17 0000 Signed Impressions: Service Date/Time: Friday, January 20, 2017 10:37 - CONCLUSION: 1. No acute cardiopulmonary findings. Anastacio Childress MD Abdomen X-Ray 01/20/17 0000 Signed Impressions: Service Date/Time: Friday, January 20, 2017 10:37 - CONCLUSION: 1. No metallic foreign bodies identified. 2. Degenerative changes in the lumbar spine and hips. Anastacio Childress MD Lumbar Spine X-Ray 01/19/17 0000 Signed Impressions: Service Date/Time: January 09:38 - CONCLUSION: Advanced discogenic degenerative changes L5-S1 without evidence of spondylolisthesis. Pascual Gaming MD Head CT 01/18/17 0158 Signed Impressions: Service Date/Time: Wednesday, January 18, 2017 03:56 - CONCLUSION: Normal examination. Pascual Trevizo Jr., MD Abdomen Ultrasound 01/18/17 0000 Signed Impressions: Service Date/Time: Wednesday, January 18, 2017 12:25 - CONCLUSION: 1. Mild hepatic enlargement. 2. Gallbladder sludge without biliary ductal dilatation. 3. No hydronephrosis or perinephric fluid. No free fluid. Dl Sales MD Assessment and Plan Assessment and Plan L spine infection with new onset LE weakness following surgery - clx with MSSA, PSAE Rec's: change MRI to STAT consult NS add AFB fungal clx cont high dose zosyn add cefazoline add levaquine Bindu Reynolds MD Jan 20, 2017 12:52
[2017-01-20 13:01] LABS: BANDS 5 % (0-6); EOSINOPHILS 6 % (0-4); METAMYELOCYTES 1 % (0-1); MYELOCYTES 3 % (0-0); POLYS (SEG NEUTROPHILS) 55 % (16-70); WBC DIFF SAMPLE 100
[2017-01-20 13:02] LABS: PLATELET ESTIMATE SMEAR NORMAL (NORMAL); PLATELET MORPHOLOGY NORMAL (NORMAL); SCAN/DIFF FINAL DIFF MANUAL
--- NOTE | 2017-01-20 13:24 | HHI.PR ---
Subjective Remarks Discussed with RN. Patient is having intermittent periods of confusion. He reports severe low back pain with any movement. No other complaints otherwise. Objective Vitals Vital Signs Date Time Temp Pulse Resp B/P Pulse Ox O2 Delivery O2 Flow Rate FiO2 01/20/17 12:00 99.1 64 18 126/70 97 01/20/17 09:00 98.8 66 18 133/72 96 01/20/17 03:30 98.0 80 19 132/72 95 01/19/17 23:13 98.2 82 20 136/73 95 01/19/17 20:17 98.3 76 20 128/74 96 01/19/17 16:41 14 I/O 01/19/17 01/19/17 01/19/17 01/20/17 01/20/17 01/20/17 07:00 15:00 23:00 07:00 15:00 23:00 Output Total 1200 ml 700 ml 700 ml Balance -1200 ml -700 ml -700 ml Output Urine Total 1200 ml 700 ml 700 ml Result Diagram: 01/20/17 1200 01/20/17 0710 Imaging Last Impressions Chest X-Ray 01/20/17 0000 Signed Impressions: Service Date/Time: Friday, January 20, 2017 10:37 - CONCLUSION: 1. No acute cardiopulmonary findings. Anastacio Childress MD Abdomen X-Ray 01/20/17 0000 Signed Impressions: Service Date/Time: Friday, January 20, 2017 10:37 - CONCLUSION: 1. No metallic foreign bodies identified. 2. Degenerative changes in the lumbar spine and hips. Anastacio Childress MD Lumbar Spine X-Ray 01/19/17 0000 Signed Impressions: Service Date/Time: January 09:38 - CONCLUSION: Advanced discogenic degenerative changes L5-S1 without evidence of spondylolisthesis. Pascual Gaming MD Head CT 01/18/17 0158 Signed Impressions: Service Date/Time: Wednesday, January 18, 2017 03:56 - CONCLUSION: Normal examination. Pascual Trevizo Jr., MD Abdomen Ultrasound 01/18/17 0000 Signed Impressions: Service Date/Time: Wednesday, January 18, 2017 12:25 - CONCLUSION: 1. Mild hepatic enlargement. 2. Gallbladder sludge without biliary ductal dilatation. 3. No hydronephrosis or perinephric fluid. No free fluid. Dl Sales MD Objective Remarks GENERAL: Patient at times confused but does not appear to be in acute distress. SKIN: 3-4 cm open incision in the lower back that is draining yellowish fluid. CARDIOVASCULAR: Regular rate and rhythm without murmurs RESPIRATORY: Clear to auscultation. Breath sounds equal bilaterally. No wheezes GASTROINTESTINAL: Abdomen soft, non-tender, nondistended. No palpable masses. No guarding. MUSCULOSKELETAL: Extremities without edema. Patient is very tender to palpation over the L2 to L4 spine. NEUROLOGICAL: Awake and alert, answers questions appropriately but has some confusions about recent events, motor function in the lower extremities limited due to severe pain on the lower back with minimal movement. Sensation is intact. A/P Assessment and Plan 71-year-old male with recent back surgery in [facility] admitted with encephalopathy, drainage from the surgical wound. Concern for discitis: Patient is status post back surgery in [facility] 1-2 weeks ago. he has an open wound w some drainage noted. Per daughter apparently pt went swimming a couple days after sx. wound culture obtained. - Infectious disease following. On cefazolin, Zosyn, Levaquin. Neurosurgery has been consulted for assistance. MRI is pending. Encephalopathy: There is concern for alcohol and benzodiazepine use prior to presentation. Appear to be improving. Continue to monitor. Alcohol abuse: Patient admits to drinking 3-4 cans of beer on a daily basis. however per daughter he drinks more than this. on thiamine, folate and multivitamin. Ativan as needed for seizures. Ativan as needed for withdrawal symptoms. Seizure and fall precautions in place. Abnormal urinalysis: Urine culture is negative. Acute renal failure: Improving. Baseline unknown. Probably related to dehydration. Continue IV fluid and monitor. Rosa in place. bladder/renal u/s. transaminitis: hepatic panel ordered. liver u/s Gallbladder sludge without biliary ductal dilatation. pt counseled to quit drinking. Hep C +. GI following. FEN: NS@100ml/hr, monitor electrolytes, regular diet DVT proph: heparin/ SCD/Nia Pinedo MD Jan 20, 2017 13:24
[2017-01-20] MEDS: LORazepam 2 MG/ML VIAL IV PUSH PRN (13:55)
[2017-01-20] MEDS ORDERED: GADODIAMIDE PF 287 MG/ML 5 ML VIAL (for RAD MRI) IV ONE (14:46)
--- NOTE | 2017-01-20 14:52 | HHI.GIFU ---
Subjective Remarks pt off floor for MRI. RN reports he is having severe back pain. Objective Vitals I&O Vital Signs Date Time Temp Pulse Resp B/P Pulse Ox O2 Delivery O2 Flow Rate FiO2 01/20/17 12:00 99.1 64 18 126/70 97 01/20/17 09:00 98.8 66 18 133/72 96 01/20/17 03:30 98.0 80 19 132/72 95 01/19/17 23:13 98.2 82 20 136/73 95 01/19/17 20:17 98.3 76 20 128/74 96 01/19/17 16:41 14 I/O 01/19/17 01/19/17 01/19/17 01/20/17 01/20/17 01/20/17 07:00 15:00 23:00 07:00 15:00 23:00 Output Total 1200 ml 700 ml 700 ml Balance -1200 ml -700 ml -700 ml Output Urine Total 1200 ml 700 ml 700 ml Laboratory Laboratory Tests Test 01/20/17 01/20/17 07:10 12:00 Sodium Level 139 Potassium Level 4.3 Chloride Level 109 Carbon Dioxide Level 23.4 Anion Gap 7 Blood Urea Nitrogen 25 Creatinine 1.44 Estimat Glomerular Filtration 48 Rate Random Glucose 126 Calcium Level 9.1 Total Bilirubin 0.7 Aspartate Amino Transf 206 (AST/SGOT) Alanine Aminotransferase 285 (ALT/SGPT) Alkaline Phosphatase 143 Total Protein 6.5 Albumin 1.9 White Blood Count 7.8 Red Blood Count 3.34 Hemoglobin 10.2 Hematocrit 29.4 Mean Corpuscular Volume 88.0 Mean Corpuscular Hemoglobin 30.6 Mean Corpuscular Hemoglobin 34.8 Concent Red Cell Distribution Width 13.5 Platelet Count 192 Mean Platelet Volume 7.3 Neutrophils (%) (Auto) Lymphocytes (%) (Auto) Monocytes (%) (Auto) Eosinophils (%) (Auto) Basophils (%) (Auto) Neutrophils # (Auto) Lymphocytes # (Auto) Monocytes # (Auto) Eosinophils # (Auto) Basophils # (Auto) CBC Comment AUTO DIFF Differential Total Cells 100 Counted Neutrophils % (Manual) 55 Band Neutrophils % 5 Lymphocytes % 21 Monocytes % 9 Eosinophils % 6 Neutrophils # (Manual) 5.0 Metamyelocytes 1 Myelocytes 3 Differential Comment FINAL DIFF MANUAL Platelet Estimate NORMAL Platelet Morphology Comment NORMAL Red Cell Morphology Comment NORMAL Date/Time Procedure Status Source Growth 01/18/17 09:10 Gram Stain - Final Complete Wound Back 01/18/17 09:10 Wound Culture - Final Complete Staphylococcus Aureus Pseudomonas Aeruginosa 01/18/17 02:55 Urine Culture - Final Complete Urine Catheterized Urine NO GROWTH IN 48 HOURS. Imaging Last Impressions Chest X-Ray 01/20/17 0000 Signed Impressions: Service Date/Time: Friday, January 20, 2017 10:37 - CONCLUSION: 1. No acute cardiopulmonary findings. Anastacio Childress MD Abdomen X-Ray 01/20/17 0000 Signed Impressions: Service Date/Time: Friday, January 20, 2017 10:37 - CONCLUSION: 1. No metallic foreign bodies identified. 2. Degenerative changes in the lumbar spine and hips. Anastacio Childress MD Lumbar Spine X-Ray 01/19/17 0000 Signed Impressions: Service Date/Time: January 09:38 - CONCLUSION: Advanced discogenic degenerative changes L5-S1 without evidence of spondylolisthesis. Pascual Gaming MD Head CT 01/18/17 0158 Signed Impressions: Service Date/Time: Wednesday, January 18, 2017 03:56 - CONCLUSION: Normal examination. Pascual Trevizo Jr., MD Abdomen Ultrasound 01/18/17 0000 Signed Impressions: Service Date/Time: Wednesday, January 18, 2017 12:25 - CONCLUSION: 1. Mild hepatic enlargement. 2. Gallbladder sludge without biliary ductal dilatation. 3. No hydronephrosis or perinephric fluid. No free fluid. Dl aSles MD Physical Exam pt off floor. Assessment and Plan Plan ASSESSMENT: - LFTs remain elevated - AST 206, ALT 285, ALP 143. Poss r/t hep C infection. JAY neg, ASMA neg, rest of liver w/u still pending US 01/18/17----> mild hepatic enlargement, gallbladder sludge without biliary ductal dilatation - pos hep C antibody, viral load and genotype still pending. - ALETHA- ferritin elevated 1376, decreased TIBC and iron PLAN: - await rest of liver w/u - await results hep C viral load and genotype This pt was seen by myself and Dr. Turner and this note is written on his behalf. Jennifer Srinivasan Jan 20, 2017 14:52
--- NOTE | 2017-01-20 15:32 | RADRPT ---
EXAM DATE/TIME: 01/20/2017 14:10 [facility] COMPARISON: SPINE LUMBAR LTD (AP & LAT), January 19, 2017, 9:38. INDICATIONS : Inability to ambulate. Low back pain. CONTRAST: 15 cc Omniscan (gadodiamide) IV MEDICAL HISTORY : None. SURGICAL HISTORY : Discectomy, lumbar. ENCOUNTER: Initial ACUITY: 1 day PAIN SCORE: 6/10 LOCATION: Paraspinal TECHNIQUE: Multiplanar multisequence MRI of the lumbar spine was performed with and without contr ast. FINDINGS: Study is abnormal. There is a large fluid collection posterior to the L3-4 level. The re is marrow edema involving the inferior portion of L3, the L4 and superior portion of the L5 verteb ral body. There is fluid in the disc space. Small epidural fluid collection is seen at L3-4. Intense contrast enhancement is evident. Evidence for previous surgery is noted. CONCLUSION: 1. Abnormal MRI as described above consistent with an inflammatory process. 2. There would appear to be surgical clips posteriorly to the L3-4 level suggesting previous surgery. Lalito Childress MD FACR on January 20, 2017 at 14:56 Board Certified Radiologist. This report was verified electronically.
[2017-01-20] MEDS ORDERED: fentaNYL CITRATE 250 MCG/5 ML AMP ONE ×2 (17:02→19:24)
[2017-01-20] MEDS ORDERED: RESP: ALBUTEROL 2.5 MG/IPRATROPIUM 0.5 MG NEB (PRN) INH (17:30)
[2017-01-20] MEDS ORDERED: MISCELLANEOUS NURSING INFORMATION XX SCH (17:30)
[2017-01-20] MEDS ORDERED: CHLORHEXIDINE GLUCONATE 2 % 1 PACK (2 CLOTHS) TOP PRN (17:30)
[2017-01-20] MEDS ORDERED: MORPHINE SULFATE 4 MG/ML INJ IV PRN (17:30)
[2017-01-20] MEDS ORDERED: ACETAMINOPHEN 325 MG TAB PO PRN (17:30)
[2017-01-20] MEDS ORDERED: ONDANSETRON HCL 4 MG/2 ML VIAL IV PRN (17:30)
--- NOTE | 2017-01-20 18:24 | RADRPT ---
EXAM DATE/TIME: 01/20/2017 17:07 [facility] COMPARISON: MRI LUMBAR SPINE W & W/O CONTRAST, January 20, 2017, 14:10. INDICATIONS : Low back pain. Open wound in low back; possible abscess. RADIATION DOSE: 13.19 CTDIvol (mGy) MEDICAL HISTORY : None SURGICAL HISTORY : Low back surgery ENCOUNTER: Initial ACUITY: 4 - 6 days PAIN SCALE: 10/10 LOCATION: Low back TECHNIQUE: Volumetric scanning of the lumbar spine was performed. Multiplanar reconstructions in the sagittal, coronal and oblique axial planes were performed. Using automated exposure control and adjustment of the mA and/or kV according to patient size, radiation dose was kept as low as reasonably achievable t o obtain optimal diagnostic quality images. FINDINGS: The patient appears be status post recent laminotomy at L3 on the right. In the laminotomy site and a long the operative approach tract, there is an intermediate density mass process which appears to be phlegmonous change. No discrete fluid density abscess is identified. There is permeative change invol ving the endplates at the L3 -- 4 and L4-5 levels associated with mild soft tissue density surroundin g the discs in the paravertebral soft tissues in addition to severe disc space narrowing and disc estefania cification at the L5-S1 level. There is no evidence of bony canal compromise. The soft tissue element s of the canal are better evaluated on today's MRI study. CONCLUSION: Findings concerning for discitis at the L3-4 and L4-5 levels potential phlegmonous ch anges in the surrounding paravertebral tissues and along appears be an operative approach tract on th e right at L3. Yan Alejo MD on January 20, 2017 at 18:15 Board Certified Radiologist. This report was verified electronically.
[2017-01-20] MEDS ORDERED: GELFOAM SIZE 100 ONE (18:25)
[2017-01-20] MEDS ORDERED: VANCOMYCIN HCL 1000 MG VIAL ONE (18:26)
[2017-01-20] MEDS ORDERED: THROMBIN (TOPICAL) 5,000 UNIT VIAL ONE (18:26)
[2017-01-20] MEDS ORDERED: GENTAMICIN SULFATE 80 MG/2 ML VIAL ONE (18:27)
[2017-01-20] MEDS ORDERED: LIDOCAINE 1%/EPINEPHrine 1:100,000 SOLN 20 ML VIAL ONE (18:27)
[2017-01-20] MEDS ORDERED: BUPIVACAINE/EPINEPHRINE 0.5% PF 30 ML VIAL ONE (18:27)
--- NOTE | 2017-01-20 18:51 | MB ---
cc: AIDAN WALDROP M.D. DATE OF CONSULTATION 01/20/2017 REASON FOR CONSULTATION Lumbar wound dehiscence. 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 His daughter has not seen him in apparently 10 years, although currently there is no family member here. In any case, from what the patient can tell me he had lumbar spine surgery a couple weeks ago in [facility]. He was experiencing a lot of pain in his back and right leg at that time and difficulty getting around. The surgeon after the surgery told him that this was not very successful and he may need another procedure depending on his residual symptoms. He presented to the emergency room on 01/18/2017 with confusion right after arriving from [facility] on a flight and the daughter brought him in. He denies any fevers or chills. It is unclear whether how compliant he has been with wound care as he is also developing a sacral decubitus. MRI scan of the lumbar spine was ordered which is still pending at this time. Lumbar spine x-rays revealed some degenerative disk disease at the L5-S1 level. Head CT scan is negative. He relates that at this point the main complaint is low back pain with movement, although, he is not experiencing right leg pain like he was previously prior to surgery. He denies any incontinence. PAST MEDICAL HISTORY Recent lumbar spine surgery in [facility] a few weeks ago. We do not have any records as to what the surgery entailed. The patient is not a very good historian either. Chronic low back pain and anxiety. MEDICATIONS Clonazepam 0.5 milligrams b.i.d. prior to admission. ALLERGIES No known drug allergies. 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 Admits to drinking 4 or 5 beers a day. Denies any smoking history. REVIEW OF SYSTEMS Complains of back pain especially with movement. No fevers or chills. No recent weight gain or weight loss. Denies any incontinence. Denies any numbness or paresthesias in the lower extremities. Denies any radicular symptoms at this point, although he did have some prior to the surgery in the right leg. LABORATORY FINDINGS White blood cell count is 7.8, hemoglobin 10.2, platelet count of 192, PT 13.7, INR 1.2, sodium 139, potassium 4.3, BUN 25, creatinine 1.44, glucose of 126. Toxicology screen positive for opiates and benzodiazepine. PHYSICAL EXAMINATION VITAL SIGNS: Temperature 99.1, pulse 64, respiratory rate 18, blood pressure 126/70, oxygen saturation 97% on room air. HEAD: Normocephalic, atraumatic. NECK: Neck is supple. CHEST: Clear to auscultation bilaterally. HEART: Regular rate rhythm, normal S1-S2. ABDOMEN: Soft, nontender. EXTREMITIES: No cyanosis or edema. NEUROLOGIC: He is awake, alert. He is oriented to name and location. Pupils are equal, reactive. Extraocular muscles are intact. Face is symmetric. Motor strength in the upper extremities is 5/5. In the lower extremities distally he has good strength with dorsiflexion, plant flexion, more proximally some giveaway weakness because of pain with movement but at least 4/5 strength. Light touch sensation intact bilaterally. Negative Babinski. He has been voiding without any incontinence. Lumbar incision site is complete breakdown of the incision about 5 cm down to the subcutaneous fat layer, although, there is no erythema. There is some serosanguineous type drainage but no clear CSF consistency fluid noted or any pus. There is a dressing in place with minimal drainage. IMPRESSION 1. Lumbar wound dehiscence and breakdown, likely a superficial infection following lumbar spine surgery in [facility] a couple of weeks ago. 2. Alcohol abuse with likely withdrawals which is improving. PLAN Recommend continued wound care with packing and secondary closure along with antibiotics with a superficial infection. MRI scan of the lumbar spine is pending and once undertaken will be reviewed to ensure no deeper infections or abscess loculations. Also recommended that he be up and about, increase his activity status with physical therapy involvement. DVT prophylaxis. Consult wound care for lumbar dressing changes, likely need some packings with frequent wound dressing changes. I will be out of town for the weekend and next week and the on-call neurosurgeon will be following the patient. MD ARNOLDO López/HAYDEN /1:13 PM /6:37 PM REYNOLD
--- NOTE | 2017-01-20 20:17 | PD.OP ---
Operative Report Date of Surgery: Jan 20, 2017 Preoperative Diagnosis: (1) Wound dehiscence, surgical (2) Acute renal failure (3) Elevated liver enzymes (4) Altered mental state Postoperative lumbar wound dehiscence with epidural abscess. Sepsis Postoperative Diagnosis: (1) Wound dehiscence, surgical (2) Acute renal failure (3) Elevated liver enzymes (4) Altered mental state Postoperative lumbar wound dehiscence with epidural abscess. Sepsis Procedure: 1. Debridement lumbar wound dehiscence 2. Evacuation lumbar epidural abscess Anesthesia: Gen. endotracheal Surgeon: Chi Springer Side Stitching Machine Operator(s): Adalid Burgess Operation and Findings: Findings: Moderate amount of eschar and necrotic debris in the deep wound site including paraspinous musculature and epidural space Moderate epidural abscess. Procedure in detail Patient was brought into the operating room and general endotracheal anesthesia induced without difficulty. Rosa catheter in place Lines established per Anesthesia SHYAM hose and sequential compression devices in place Appropriate timeout procedure performed with all personal present and in agreement Lumbar region prepped and draped with Betadine. 2 g Ancef IV infused prior to procedure The open left lower lumbar wound incision was debrided down to viable bleeding tissue with moderate amount of chronic tissue and eschar removed. Deep sutures were removed Moderate amount of gross purulent epidural abscess cultured and evacuated with gentle suction and irrigation. Necrotic debris removed from surrounding the lamina and paraspinous musculature and epidural space. Epidural debris including some hematoma carefully evacuated. No CSF leakage encountered. Region was copiously irrigated with gentamicin irrigation. 7 mm J-P drain left in place and brought out the small incision in the lower lumbar region secured to the skin with nylon suture attached to sterile suction. Moderate amount of epidural bleeding encountered. Gentamicin soaked 4 x 4 gauze wet-to-dry dressings gently placed taking care not to compress the dura. ABD dressing placed. Patient taken to recovery room in stable condition All counts correct at the end of the case Specimens epidural abscess sent for routine Gram stain, AFB, fungal, bacterial cultures Estimated blood loss 50 cc Chi Springer MD Jan 20, 2017 20:17
[2017-01-20] MEDS ORDERED: DO NOT ADM ANY ANTICOAGULANT DRUGS PRN (20:30)
--- NOTE | 2017-01-20 20:37 | HHI.NSPN ---
History Interval History 71-year-old male with recent lumbar laminectomy in [place]. Apparently for herniated nucleus pulposus. He came back to the [facility] anticipating further lumbar surgery at the [facility]. He presented to the hospital with confusion, renal failure, elevated transaminases, probable sepsis. Under signed call by infectious disease this afternoon regarding the patient's status with confusion, possible decreased lower extremity motor function. Patient sent to CT scan for possible CT aspiration abscess. Discussed with radiology and patient was initially examined by the undersigned in the radiology CT scanning suite today. Exam Results Vital Signs Date Time Temp Pulse Resp B/P Pulse Ox O2 Delivery O2 Flow Rate FiO2 01/20/17 16:00 98.0 74 18 126/70 96 01/18/17 03:06 Room Air Intake and Output 01/19/17 01/19/17 01/20/17 08:00 16:00 00:00 Output Total 1200 ml 700 ml Balance -1200 ml -700 ml Physical Examination Patient has had some sedation and the CT scanning suite prior to examination. Moderate lethargy. Not following commands Occasional spontaneous movement lower extremities when stimulated Approximately 4-5 cm wound dehiscence just to the left of midline lumbar region. Moderate eschar formation. Mild purulent drainage. Lab, Micro, Other Results CT and MRI lumbar spine images reviewed with radiology. Probable lumbar epidural abscess. Lumbar Spine CT 01/20/17 0000 Signed Impressions: Service Date/Time: Friday, January 20, 2017 17:07 - CONCLUSION: Findings concerning for discitis at the L3-4 and L4-5 levels potential phlegmonous changes in the surrounding paravertebral tissues and along appears be an operative approach tract on the right at L3. Yan Alejo MD Chest X-Ray 01/20/17 0000 Signed Impressions: Service Date/Time: Friday, January 20, 2017 10:37 - CONCLUSION: 1. No acute cardiopulmonary findings. Anastacio Childress MD Abdomen X-Ray 01/20/17 0000 Signed Impressions: Service Date/Time: Friday, January 20, 2017 10:37 - CONCLUSION: 1. No metallic foreign bodies identified. 2. Degenerative changes in the lumbar spine and hips. Anastacio Childress MD Lumbar Spine X-Ray 01/19/17 0000 Signed Impressions: Service Date/Time: January 09:38 - CONCLUSION: Advanced discogenic degenerative changes L5-S1 without evidence of spondylolisthesis. Pascual Gaming MD Head CT 01/18/17 0158 Signed Impressions: Service Date/Time: Wednesday, January 18, 2017 03:56 - CONCLUSION: Normal examination. Pascual Trevizo Jr., MD Abdomen Ultrasound 01/18/17 0000 Signed Impressions: Service Date/Time: Wednesday, January 18, 2017 12:25 - CONCLUSION: 1. Mild hepatic enlargement. 2. Gallbladder sludge without biliary ductal dilatation. 3. No hydronephrosis or perinephric fluid. No free fluid. Dl Sales MD Medical Decision Making Impression and Plan Impression: 1. Lumbar wound dehiscence. Findings suggestive of lumbar epidural abscess. Probable sepsis. Renal failure-questionably related to sepsis. Elevated transaminase. Altered mental status-likely related to sepsis with possible contribution from chronic alcohol abuse Plan: Findings were discussed with the family and CT scanning suite as well as with radiology. Plan to take patient directed to the operating room for evacuation of epidural abscess, wound debridement due to findings suggestive of sepsis with normal secondary to altered mental status and questionable contribution of sepsis to renal failure. The procedure discussed at length with the family including indications risks and possible complications and all questions answered. Consents reviewed with the patient's family and the CT scanning suite. Chi Springer MD Jan 20, 2017 20:37
[2017-01-20] MEDS: PIPERACIL-TAZO 4.5 GM PREMIX 100 ML IV SCH (22:07)
[2017-01-20] MEDS: ceFAZolin 2 GM PREMIX 50 ML IV SCH (22:07)
--- NOTE | 2017-01-20 22:59 | PD.CONS ---
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 The patient had lumbar spine surgery a couple weeks ago in [facility]. He was experiencing a lot of pain in his back and right leg at that time and difficulty getting around. He presented to the emergency room on 2016 with confusion right after arriving from [facility]. CT of the lumbar spine there is a concern of L2-3 discitis and phlegmon. He was taken emergently to IR for fluid collection drainage. His wound culture preliminary grows Staphylococcus and Pseudomonas and he underwent debridement lumbar wound dehiscence and evacuation lumbar epidural abscess. Review of Systems Constitutional: COMPLAINS OF: Dizziness, DENIES: Diaphoretic episodes, Fatigue , Fever, Weight gain, Weight loss, Chills, Change in appetite, Night Sweats Endocrine: DENIES: Heat/cold intolerance, Polydipsia, Polyuria, Polyphagia Eyes: DENIES: Blurred vision, Diplopia, Eye inflammation, Eye pain, Vision loss , Photosensitivity, Double Vision Ears, nose, mouth, throat: DENIES: Tinnitus, Hearing loss, Vertigo, Nasal discharge, Oral lesions, Throat pain, Hoarseness, Ear Pain, Running Nose, Epistaxis, Sinus Pain, Toothache, Odynophagia Respiratory: DENIES: Apneas, Cough, Snoring, Wheezing, Hemoptysis, Sputum production, Shortness of breath Cardiovascular: DENIES: Chest pain, Palpitations, Syncope, Dyspnea on Exertion , PND, Lower Extremity Edema, Orthopnea, Claudication Gastrointestinal: DENIES: Abdominal pain, Black stools, Bloody stools, Constipation, Diarrhea, Nausea, Vomiting, Difficulty Swallowing, Anorexia Genitourinary: COMPLAINS OF: Sexual dysfunction, Urinary frequency, Urinary incontinence, Urgency, Hematuria, Dysuria, Nocturia, Penile Discharge, Testicular Pain, Testicular Swelling Musculoskeletal: COMPLAINS OF: Joint pain, Muscle aches, DENIES: Stiffness, Joint Swelling, Back pain, Neck pain Integumentary: DENIES: Abnormal pigmentation, Nail changes, Pruritus, Rash Hematologic/lymphatic: DENIES: Bruising, Lymphadenopathy Neurologic: COMPLAINS OF: Abnormal gait, DENIES: Headache, Localized weakness , Paresthesias, Seizures, Speech Problems, Tremor, Poor Balance Past Family Social History Allergies: Coded Allergies: No Known Allergies (Unverified , 01/18/17) Past Medical History Chronic low back pain Anxiety Past Surgical History Recent lumbar spine surgery in [facility] Reported Medications Reported Meds & Active Scripts Active Reported Clonazepam 0.5 Mg Tab 0.5 Mg PO BID Active Ordered Medications Current Medications Medications (Trade) Dose Ordered Sig/Sukhwinder Route PRN Reason Start Time Stop Time Status Last Admin Dose Admin Thiamine HCl (Vitamin B1) 100 mg DAILY PO 01/18/17 10:00 01/20/17 09:29 Folic Acid (Folate) 1 mg DAILY PO 01/18/17 10:00 01/20/17 09:29 Multivitamins (Theragran) 1 tab DAILY PO 01/18/17 10:00 01/20/17 09:29 Heparin Sodium (Porcine) (Heparin Inj) 5,000 units Q12HR SQ 01/18/17 21:00 01/21/17 00:07 Sodium Chloride (NS Flush) 2 ml UNSCH PRN IV FLUSH FLUSH AFTER USING IV ACCESS 01/18/17 12:00 Sodium Chloride (NS Flush) 2 ml BID IV FLUSH 01/18/17 21:00 01/20/17 21:00 Naloxone HCl (Narcan Inj) 0.4 mg UNSCH PRN IV SEE LABEL COMMENTS 01/18/17 12:00 Lorazepam (Ativan Inj) 1 mg Q2H PRN IV PUSH SEIZURES/agitation 01/18/17 15:30 01/20/17 13:55 Morphine Sulfate (Morphine Inj) 2 mg Q4HR PRN IV PUSH BREAKTHROUGH PAIN 01/19/17 08:00 01/19/17 16:36 Acetaminophen/ Hydrocodone Bitart (Auburn 5-325 Mg) 1 tab Q4H PRN PO PAIN SCALE 3 TO 5 01/19/17 08:00 Acetaminophen/ Hydrocodone Bitart ([place]uburn 10-325 Mg) 1 tab Q6H PRN PO PAIN SCALE 6 TO 10 01/19/17 08:00 01/20/17 06:25 Senna/Docusate Sodium (Iris-Colace) 1 tab BID PRN PO CONSTIPATION 01/19/17 08:00 01/19/17 16:35 Padimate O 1 applic 1 applic UNSCH PRN TOPICAL DRY LIPS 01/19/17 18:00 Cefazolin Sodium/ Dextrose 50 ml @ 150 mls/hr Q8H IV 01/20/17 15:00 01/20/17 22:07 Piperacillin Sod/ Tazobactam Sod (Zosyn 4.5 Gm Premix) 100 ml @ 200 mls/hr Q6H IV 01/20/17 14:00 01/20/17 22:07 Levofloxacin (Levaquin) 750 mg Q24H PO 01/20/17 14:00 Lorazepam 1 mg 1 mg Q4H PRN IV PUSH severe anxiety/withdrawals 01/20/17 16:45 Sodium Chloride (NS 1000 ml Inj) 1,000 ml @ 125 mls/hr Q8H IV 01/20/17 18:00 Acetaminophen (Tylenol) 650 mg Q6H PRN PO PAIN 1-2 AND/OR FEVER >101F 01/20/17 17:30 Morphine Sulfate (Morphine Inj) 2 mg Q2H PRN IV PAIN SCALE 1 TO 5 01/20/17 17:30 Hydromorphone HCl (Dilaudid Pf Inj) 0.5 mg Q4H PRN IV PAIN SCALE 6 TO 10 01/20/17 17:30 Pantoprazole Sodium (Protonix Inj) 40 mg DAILY IV 01/20/17 17:30 Ondansetron HCl (Zofran Inj) 4 mg Q6H PRN IV NAUSEA OR VOMITING 01/20/17 17:30 Miscellaneous Information 1 Q361D XX 01/20/17 17:30 Chlorhexidine Gluconate (Chlorhexidine 2% Cloth) 3 pack Taper DAILY@04 TOP 01/21/17 04:00 01/17/18 03:59 Chlorhexidine Gluconate (Chlorhexidine 2% Cloth) 3 pack UNSCH PRN TOP HYGIENIC CARE 01/20/17 17:30 Miscellaneous Information ALL NURSING DEPARTME... UNSCH PRN .XX SEE LABEL COMMENTS 01/20/17 20:30 01/21/17 20:29 Family History Noncontributory Social History Drinks 4-5 beers a day Denies cigarette or illicit drug abuse Physical Exam Vital Signs Vital Signs Date Time Temp Pulse Resp B/P Pulse Ox O2 Delivery O2 Flow Rate FiO2 01/20/17 16:00 98.0 74 18 126/70 96 01/20/17 12:00 99.1 64 18 126/70 97 01/20/17 09:00 98.8 66 18 133/72 96 01/20/17 03:30 98.0 80 19 132/72 95 01/19/17 23:13 98.2 82 20 136/73 95 Physical Exam GENERAL: Well-nourished, well-developed patient. Comfortably resting in the bed on 2 L nasal cannula SKIN: Warm and dry. HEAD: Normocephalic. EYES: No scleral icterus. No injection or drainage. NECK: Supple, trachea midline. No JVD or lymphadenopathy. CARDIOVASCULAR: Regular rate and rhythm without murmurs, gallops, or rubs. RESPIRATORY: Breath sounds equal bilaterally. No accessory muscle use. GASTROINTESTINAL: Abdomen soft, non-tender, nondistended. MUSCULOSKELETAL: No cyanosis, or edema. BACK: Nontender without obvious deformity. No CVA tenderness. EXTREMITIES: Moves all 4 with the same strands no clubbing edema or cyanosis Laboratory Laboratory Tests Test 01/20/17 01/20/17 07:10 12:00 Sodium Level 139 Potassium Level 4.3 Chloride Level 109 Carbon Dioxide Level 23.4 Anion Gap 7 Blood Urea Nitrogen 25 Creatinine 1.44 Estimat Glomerular Filtration 48 Rate Random Glucose 126 Calcium Level 9.1 Total Bilirubin 0.7 Aspartate Amino Transf 206 (AST/SGOT) Alanine Aminotransferase 285 (ALT/SGPT) Alkaline Phosphatase 143 Total Protein 6.5 Albumin 1.9 White Blood Count 7.8 Red Blood Count 3.34 Hemoglobin 10.2 Hematocrit 29.4 Mean Corpuscular Volume 88.0 Mean Corpuscular Hemoglobin 30.6 Mean Corpuscular Hemoglobin 34.8 Concent Red Cell Distribution Width 13.5 Platelet Count 192 Mean Platelet Volume 7.3 Neutrophils (%) (Auto) Lymphocytes (%) (Auto) Monocytes (%) (Auto) Eosinophils (%) (Auto) Basophils (%) (Auto) Neutrophils # (Auto) Lymphocytes # (Auto) Monocytes # (Auto) Eosinophils # (Auto) Basophils # (Auto) CBC Comment AUTO DIFF Differential Total Cells 100 Counted Neutrophils % (Manual) 55 Band Neutrophils % 5 Lymphocytes % 21 Monocytes % 9 Eosinophils % 6 Neutrophils # (Manual) 5.0 Metamyelocytes 1 Myelocytes 3 Differential Comment FINAL DIFF MANUAL Platelet Estimate NORMAL Platelet Morphology Comment NORMAL Red Cell Morphology Comment NORMAL Date/Time Procedure Status Source Growth 01/20/17 19:52 Gram Stain Received Wound Other Pending 01/20/17 19:52 Wound Culture Received Wound Other Pending 01/20/17 19:52 Fungal Smear Received Wound Other Pending 01/20/17 19:52 Fungal Culture Received Wound Other Pending 01/20/17 19:52 Acid Fast Stain Received Wound Other Pending 01/20/17 19:52 Mycobacterial Culture Received Wound Other Pending 01/18/17 09:10 Gram Stain - Final Complete Wound Back 01/18/17 09:10 Wound Culture - Final Complete Staphylococcus Aureus Pseudomonas Aeruginosa 01/18/17 02:55 Urine Culture - Final Complete Urine Catheterized Urine NO GROWTH IN 48 HOURS. Result Diagram: 01/20/17 1200 01/20/17 0710 Assessment and Plan Problem List: (1) Altered mental state ICD Code: R41.82 Status: Acute (2) Acute renal failure ICD Code: N17.9 Status: Acute (3) Wound dehiscence, surgical ICD Code: T81.31XA Status: Acute (4) Elevated liver enzymes ICD Code: R74.8 Status: Acute Assessment and Plan Epidural abscess - Surgically evacuation by Dr. Carlton - Broad-spectrum antibiotic - High dose Zosyn, Cefazolin, and Levaquin - ID consult appreciated Altered mental status - Due to above - Monitor neuro checks per ICU protocol Acute kidney injury - SIRS - Aggressive IV fluid hydration - Monitor urine output - Monitor creatinine and electrolytes DVT GI prophylaxis - Teds SCDs - Pharmacal DVT prophylaxis when okay with neurosurgery - Pepcid Critical Care: The total critical care time was 35 minutes. Time to perform other separately billable procedures was not included in the critical care time. Problem Qualifiers (1) Altered mental state: Qualified Code: R41.0 - Disorientation (2) Acute renal failure: Qualified Code: N17.9 - Acute renal failure, unspecified acute renal failure type Cr Rivera MD Jan 20, 2017 22:59
[2017-01-21] VITALS (14 sets, daily range): BP systolic 134–156; BP diastolic 51–84; PULSE 64–93; RESP 18–26; TEMP 98–99.1; O2SAT 97–100
[2017-01-21] MEDS: HEPARIN SODIUM - SQ 10,000 UNITS/ML VIAL SQ SCH ×4 (00:07→22:48)
[2017-01-21] MEDS: PIPERACIL-TAZO 4.5 GM PREMIX 100 ML IV SCH ×4 (01:50→20:04)
[2017-01-21] MEDS: CHLORHEXIDINE GLUCONATE 2 % 1 PACK (2 CLOTHS) TOP SCH (04:00)
[2017-01-21 04:52] LABS: AUTOMATED NEUTROPHIL # 5.5 TH/MM3 (1.8-7.7); BASOPHIL # 0.1 TH/MM3 (0-0.2); BASOPHIL % 1.3 % (0.0-2.0); EOSINOPHIL # 0.4 TH/MM3 (0-0.4); EOSINOPHIL % 5.2 % (0.0-4.0); HEMATOCRIT 30.9 % (39.0-51.0); LYMPH % 15.3 % (9.0-44.0); LYMPHOCYTE # 1.3 TH/MM3 (1.0-4.8); MEAN CELL VOLUME 88.3 FL (80.0-100.0); MEAN CORPUSCULAR HEMOGLOBIN 30.2 PG (27.0-34.0); MEAN CORPUSCULAR HGB CONC 34.2 % (32.0-36.0); MONO % 12.2 % (0.0-8.0); PLATELET COUNT 167 TH/MM3 (150-450); RED CELL DISTRIBUTION WIDTH 13.4 % (11.6-17.2); WHITE BLOOD COUNT 8.4 TH/MM3 (4.0-11.0)
[2017-01-21 05:06] LABS: HEMO FLAGS AUTO DIFF
[2017-01-21 05:07] LABS: ALT (GPT) 251 U/L (12-78); ANION GAP 9 MEQ/L (5-15); AST (GOT) 219 U/L (15-37); BICARBONATE 24.1 MEQ/L (21.0-32.0); BLOOD UREA NITROGEN 17 MG/DL (7-18); CHLORIDE 106 MEQ/L (98-107); GLOMERULAR FILTRATION RATE 55 ML/MIN (>89); POTASSIUM 4.1 MEQ/L (3.5-5.1); SODIUM (NA) 139 MEQ/L (136-145)
[2017-01-21 05:09] LABS: ALKALINE PHOSPHATASE 131 U/L (45-117); TOTAL BILIRUBIN ADULT 0.8 MG/DL (0.2-1.0)
[2017-01-21] MEDS: ceFAZolin 2 GM PREMIX 50 ML IV SCH ×3 (05:27→22:49)
[2017-01-21] MEDS: ACETAMINOPHEN/HYDROcodone 325 MG/5 MG TAB PO PRN ×2 (05:27→14:51)
[2017-01-21] MEDS: SODIUM CHLOR 0.9% 1000 ML INJ 1,000 ML IV SCH ×3 (06:13→15:37)
[2017-01-21] MEDS: THIAMINE HCL 100 MG TAB PO SCH (08:15)
[2017-01-21] MEDS: PANTOPRAZOLE SODIUM 40 MG VIAL IV SCH (08:15)
[2017-01-21] MEDS: MULTIVITAMIN TAB PO SCH (08:15)
[2017-01-21] MEDS: FOLIC ACID 1 MG TAB PO SCH (08:15)
[2017-01-21] MEDS: SODIUM CHLORIDE 0.9% FLUSH 10 ML FLUSH IV FLUSH SCH ×2 (08:16→22:48)
[2017-01-21] MEDS: HYDROmorphone HCL PF 1 MG/ML VIAL IV PRN (08:50)
[2017-01-21 09:20] LABS: BANDS 16 % (0-6); EOSINOPHILS 6 % (0-4); METAMYELOCYTES 2 % (0-1); NEUTROPHIL # MANUAL DIFF 6.4 TH/MM3 (1.8-7.7); PLATELET ESTIMATE SMEAR NORMAL (NORMAL); PLATELET MORPHOLOGY NORMAL (NORMAL); POLYS (SEG NEUTROPHILS) 58 % (16-70); SCAN/DIFF FINAL DIFF MANUAL; WBC DIFF SAMPLE 100
--- NOTE | 2017-01-21 10:54 | HHI.CCPN ---
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 The patient had lumbar spine surgery a couple weeks ago in [facility]. He was experiencing a lot of pain in his back and right leg at that time and difficulty getting around. He presented to the emergency room on 2016 with confusion right after arriving from [facility]. CT of the lumbar spine there is a concern of L2-3 discitis and phlegmon. He was taken emergently to IR for fluid collection drainage. His wound culture preliminary grows Staphylococcus and Pseudomonas and he underwent debridement lumbar wound dehiscence and evacuation lumbar epidural abscess. 01/21: Well perfused and hydrated. Expected discomfort but tolerable pain. Brain working well. Objective Vital Signs Date Time Temp Pulse Resp B/P Pulse Ox O2 Delivery O2 Flow Rate FiO2 01/21/17 10:00 94 Room Air 01/21/17 10:00 89 01/21/17 09:00 1.00 01/21/17 08:00 99.1 20 152/74 Intake and Output 01/20/17 01/20/17 01/21/17 08:00 16:00 00:00 Intake Total 1207 ml Output Total 700 ml 1355 ml Balance -700 ml -148 ml Result Diagram: 01/21/17 0356 01/21/17 0356 Objective Remarks GENERAL: Well-nourished, well-developed patient. SKIN: Warm and dry. HEAD: Normocephalic. NECK: Supple, trachea midline. No obstruction or stridor. CARDIOVASCULAR: Regular rate and rhythm without murmurs, gallops, or rubs. No JVD. RESPIRATORY: Breath sounds equal bilaterally. No accessory muscle use. Clear, no wheezes. GASTROINTESTINAL: Abdomen soft, non-tender, nondistended. BS active. EXTREMITIES: Warm, well perfused. NEURO: Moves 4 limbs. O X 3, conversant A/P Problem List: (1) Altered mental state ICD Code: R41.82 Status: Acute (2) Acute renal failure ICD Code: N17.9 Status: Acute (3) Wound dehiscence, surgical ICD Code: T81.31XA Status: Acute (4) Elevated liver enzymes ICD Code: R74.8 Status: Acute Assessment and Plan Epidural abscess - Surgically evacuation by Dr. Carlton - Broad-spectrum antibiotic - High dose Zosyn, Cefazolin, and Levaquin - ID consult appreciated Altered mental status - Due to above - Monitor neuro checks per ICU protocol -Improved 01/21 Acute kidney injury - SIRS - Aggressive IV fluid hydration - Monitor urine output - Monitor creatinine and electrolytes - improved DVT GI prophylaxis - Teds SCDs - Pharmacal DVT prophylaxis when okay with neurosurgery - Pepcid Overall impression: Complicated spinal wound infection transferred in from [facility]. Will require extensive debridement and closure procedures. Problem Qualifiers (1) Altered mental state: Qualified Code: R41.0 - Disorientation (2) Acute renal failure: Qualified Code: N17.9 - Acute renal failure, unspecified acute renal failure type Josafat Damon MD Jan 21, 2017 10:54
[2017-01-21] MEDS: LEVOFLOXACIN 750 MG TAB PO SCH (12:27)
--- NOTE | 2017-01-21 15:20 | HHI.GIFU ---
Subjective Remarks Resting comfortably in bed. More alert today. Says he had been noticing for the last few months abdominal pain, particulary when changing positions or reaching for something. Denies abdominal pain at this time, n/v. Objective Vitals I&O Vital Signs Date Time Temp Pulse Resp B/P Pulse Ox O2 Delivery O2 Flow Rate FiO2 01/21/17 14:00 93 01/21/17 12:00 98.8 68 19 156/72 97 01/21/17 12:00 68 01/21/17 11:00 71 18 134/65 98 01/21/17 10:00 94 Room Air 01/21/17 10:00 89 01/21/17 09:00 95 Nasal Cannula 1.00 01/21/17 08:50 98 21 01/21/17 08:00 66 01/21/17 08:00 99 Nasal Cannula 2.00 01/21/17 08:00 99.1 75 20 152/74 99 01/21/17 06:00 66 01/21/17 04:00 66 01/21/17 04:00 98.1 70 22 147/51 100 01/21/17 02:00 82 01/21/17 00:00 98.0 64 20 138/84 100 01/21/17 00:00 66 01/20/17 23:20 100 Nasal Cannula 2.00 01/20/17 22:00 97.6 64 20 138/84 100 01/20/17 22:00 95 Nasal Cannula 2.00 01/20/17 21:30 66 01/20/17 20:40 98.3 67 12 144/75 99 Nasal Cannula 2 01/20/17 20:30 72 15 144/90 99 Nasal Cannula 2 01/20/17 20:15 69 14 128/77 97 Nasal Cannula 2 01/20/17 20:00 74 17 122/71 98 Nasal Cannula 2 01/20/17 19:52 98.5 73 16 111/68 98 Nasal Cannula 2 01/20/17 16:00 98.0 74 18 126/70 96 I/O 01/20/17 01/20/17 01/20/17 01/21/17 01/21/17 01/21/17 07:00 15:00 23:00 07:00 15:00 23:00 Intake Total 1207 ml 1089 ml 873 ml Output Total 700 ml 1355 ml 820 ml 476 ml Balance -700 ml -148 ml 269 ml 397 ml Intake Oral 120 ml 240 ml IV Total 187 ml 849 ml 873 ml Other 900 ml Output Urine Total 700 ml 1300 ml 800 ml 475 ml Drainage Total 5 ml 20 ml 1 ml Estimated Blood Loss 50 ml # Bowel Movements 0 0 Laboratory Laboratory Tests Test 01/21/17 01/21/17 03:56 07:00 White Blood Count 8.4 Red Blood Count 3.50 Hemoglobin 10.6 Hematocrit 30.9 Mean Corpuscular Volume 88.3 Mean Corpuscular Hemoglobin 30.2 Mean Corpuscular Hemoglobin 34.2 Concent Red Cell Distribution Width 13.4 Platelet Count 167 Mean Platelet Volume 8.1 Neutrophils (%) (Auto) 66.0 Lymphocytes (%) (Auto) 15.3 Monocytes (%) (Auto) 12.2 Eosinophils (%) (Auto) 5.2 Basophils (%) (Auto) 1.3 Neutrophils # (Auto) 5.5 Lymphocytes # (Auto) 1.3 Monocytes # (Auto) 1.0 Eosinophils # (Auto) 0.4 Basophils # (Auto) 0.1 CBC Comment AUTO DIFF Differential Total Cells 100 Counted Neutrophils % (Manual) 58 Band Neutrophils % 16 Lymphocytes % 14 Monocytes % 4 Eosinophils % 6 Neutrophils # (Manual) 6.4 Metamyelocytes 2 Differential Comment FINAL DIFF MANUAL Platelet Estimate NORMAL Platelet Morphology Comment NORMAL Red Cell Morphology Comment NORMAL Sodium Level 139 Potassium Level 4.1 Chloride Level 106 Carbon Dioxide Level 24.1 Anion Gap 9 Blood Urea Nitrogen 17 Creatinine 1.30 Estimat Glomerular Filtration 55 Rate Random Glucose 93 Lactic Acid Level 0.9 Calcium Level 8.7 Total Bilirubin 0.8 Aspartate Amino Transf 219 (AST/SGOT) Alanine Aminotransferase 251 (ALT/SGPT) Alkaline Phosphatase 131 Total Protein 6.5 Albumin 1.8 Nasal Screen MRSA (PCR) NEGATIVE Date/Time Procedure Status Source Growth 01/20/17 19:52 Gram Stain - Final Resulted Wound Other 01/20/17 19:52 Wound Culture - Preliminary Resulted Staphylococcus Aureus 01/20/17 19:52 Fungal Smear - Final Resulted Wound Other NO FUNGAL ELEMENTS SEEN. 01/20/17 19:52 Fungal Culture Resulted Wound Other Pending 01/20/17 19:52 Acid Fast Stain Worksheet Wound Other Pending 01/20/17 19:52 Mycobacterial Culture Worksheet Wound Other Pending 01/18/17 02:55 Urine Culture - Final Complete Urine Catheterized Urine NO GROWTH IN 48 HOURS. Imaging Last Impressions Lumbar Spine CT 01/20/17 0000 Signed Impressions: Service Date/Time: Friday, January 20, 2017 17:07 - CONCLUSION: Findings concerning for discitis at the L3-4 and L4-5 levels potential phlegmonous changes in the surrounding paravertebral tissues and along appears be an operative approach tract on the right at L3. Yan Alejo MD Chest X-Ray 01/20/17 0000 Signed Impressions: Service Date/Time: Friday, January 20, 2017 10:37 - CONCLUSION: 1. No acute cardiopulmonary findings. Anastacio Childress MD Abdomen X-Ray 01/20/17 0000 Signed Impressions: Service Date/Time: Friday, January 20, 2017 10:37 - CONCLUSION: 1. No metallic foreign bodies identified. 2. Degenerative changes in the lumbar spine and hips. Anastacio Childress MD Lumbar Spine X-Ray 01/19/17 0000 Signed Impressions: Service Date/Time: January 09:38 - CONCLUSION: Advanced discogenic degenerative changes L5-S1 without evidence of spondylolisthesis. Pascual Gaming MD Head CT 01/18/17 0158 Signed Impressions: Service Date/Time: Wednesday, January 18, 2017 03:56 - CONCLUSION: Normal examination. Pascual Trevizo Jr., MD Abdomen Ultrasound 01/18/17 0000 Signed Impressions: Service Date/Time: Wednesday, January 18, 2017 12:25 - CONCLUSION: 1. Mild hepatic enlargement. 2. Gallbladder sludge without biliary ductal dilatation. 3. No hydronephrosis or perinephric fluid. No free fluid. Dl Sales MD Physical Exam HEENT: EOMI, normocephalic, atraumatic CHEST: CTA HEART: RRR ABDOMEN: soft, nontender, BS + x 4 EXTREMITIES: no edema SKIN: no jaundice; pt did unwilling to move to allow exam of back wound [employer]: more alert today, cooperative, no focal deficits Assessment and Plan Plan ASSESSMENT: - LFTs remain elevated - AST 219, ALT 251, ALP 131. suspect r/t hep C infection. JAY neg, ASMA neg, rest of liver w/u still pending US 01/18/17----> mild hepatic enlargement, gallbladder sludge without biliary ductal dilatation - pos hep C antibody, viral load and genotype still pending. - ALETHA- ferritin elevated 1376, decreased TIBC and iron PLAN: - await rest of liver w/u - await results hep C viral load and genotype This pt was seen by myself and Dr. Lira and this note is written on his behalf. Jennifer Srinivasan Jan 21, 2017 15:20
--- NOTE | 2017-01-21 23:57 | HHI.NSPN ---
History Interval History 71-year-old male with recent lumbar laminectomy in [place]. Apparently for herniated nucleus pulposus. He came back to the [facility] anticipating further lumbar surgery at the [facility]. He presented to the hospital with confusion, renal failure, elevated transaminases, probable sepsis. Under signed call by infectious disease this afternoon regarding the patient's status with confusion, possible decreased lower extremity motor function. Patient sent to CT scan for possible CT aspiration abscess. Discussed with radiology and patient was initially examined by the undersigned in the radiology CT scanning suite today. Exam Results Vital Signs Date Time Temp Pulse Resp B/P Pulse Ox O2 Delivery O2 Flow Rate FiO2 01/21/17 22:00 73 01/21/17 20:00 98.3 26 147/72 98 01/21/17 19:00 Room Air 01/21/17 09:00 1.00 01/21/17 08:50 21 Intake and Output 01/20/17 01/20/17 01/21/17 08:00 16:00 00:00 Intake Total 1207 ml Output Total 700 ml 1355 ml Balance -700 ml -148 ml Physical Examination Respirations clear and regular, nonlabored Cardiac regular without murmur Abdomen soft and nontender Sitting up in chair Awake and alert Speech oriented and conversant Follow simple commands well Sensation intact by touch all extremities Strength normal major flexion and extension groups all extremities Mild drainage on dressing Drain in place Lab, Micro, Other Results Laboratory Tests Test 01/21/17 01/21/17 03:56 07:00 White Blood Count 8.4 TH/MM3 Red Blood Count 3.50 MIL/MM3 Hemoglobin 10.6 GM/DL Hematocrit 30.9 % Mean Corpuscular Volume 88.3 FL Mean Corpuscular Hemoglobin 30.2 PG Mean Corpuscular Hemoglobin 34.2 % Concent Red Cell Distribution Width 13.4 % Platelet Count 167 TH/MM3 Mean Platelet Volume 8.1 FL Neutrophils (%) (Auto) 66.0 % Lymphocytes (%) (Auto) 15.3 % Monocytes (%) (Auto) 12.2 % Eosinophils (%) (Auto) 5.2 % Basophils (%) (Auto) 1.3 % Neutrophils # (Auto) 5.5 TH/MM3 Lymphocytes # (Auto) 1.3 TH/MM3 Monocytes # (Auto) 1.0 TH/MM3 Eosinophils # (Auto) 0.4 TH/MM3 Basophils # (Auto) 0.1 TH/MM3 CBC Comment AUTO DIFF Differential Total Cells 100 Counted Neutrophils % (Manual) 58 % Band Neutrophils % 16 % Lymphocytes % 14 % Monocytes % 4 % Eosinophils % 6 % Neutrophils # (Manual) 6.4 TH/MM3 Metamyelocytes 2 % Differential Comment FINAL DIFF MANUAL Platelet Estimate NORMAL Platelet Morphology Comment NORMAL Red Cell Morphology Comment NORMAL Sodium Level 139 MEQ/L Potassium Level 4.1 MEQ/L Chloride Level 106 MEQ/L Carbon Dioxide Level 24.1 MEQ/L Anion Gap 9 MEQ/L Blood Urea Nitrogen 17 MG/DL Creatinine 1.30 MG/DL Estimat Glomerular Filtration 55 ML/MIN Rate Random Glucose 93 MG/DL Lactic Acid Level 0.9 mmol/L Calcium Level 8.7 MG/DL Total Bilirubin 0.8 MG/DL Aspartate Amino Transf 219 U/L (AST/SGOT) Alanine Aminotransferase 251 U/L (ALT/SGPT) Alkaline Phosphatase 131 U/L Total Protein 6.5 GM/DL Albumin 1.8 GM/DL Nasal Screen MRSA (PCR) NEGATIVE Medical Decision Making Impression and Plan Impression: 1. Status post debridement of lumbar wound, evacuation epidural abscess. Sensorimotor exam lower extremity stable postoperative. Mental status significantly improved postoperative Plan: Discussed with nursing staff Discussed with patient IV antibiotics continuing per infectious disease Physical therapy Maintain current wet-to-dry dressings Wound care consult He will need VAC dressing placed Chi Springer MD Jan 21, 2017 23:57
[2017-01-22] VITALS (13 sets, daily range): BP systolic 135–166; BP diastolic 66–78; PULSE 58–100; RESP 17–23; TEMP 97.8–99; O2SAT 95–99
[2017-01-22] MEDS: SODIUM CHLOR 0.9% 1000 ML INJ 1,000 ML IV SCH ×4 (01:26→23:03)
[2017-01-22] MEDS: PIPERACIL-TAZO 4.5 GM PREMIX 100 ML IV SCH ×4 (01:26→19:53)
[2017-01-22] MEDS: ACETAMINOPHEN/HYDROcodone 325 MG/5 MG TAB PO PRN ×2 (01:26→10:13)
[2017-01-22] MEDS: CHLORHEXIDINE GLUCONATE 2 % 1 PACK (2 CLOTHS) TOP SCH (04:00)
[2017-01-22 05:13] LABS: BICARBONATE 25.1 MEQ/L (21.0-32.0); POTASSIUM 3.8 MEQ/L (3.5-5.1)
[2017-01-22 05:14] LABS: BASOPHIL % 0.5 % (0.0-2.0); EOSINOPHIL # 0.6 TH/MM3 (0-0.4); EOSINOPHIL % 6.4 % (0.0-4.0); HEMATOCRIT 30.7 % (39.0-51.0); LYMPH % 13.7 % (9.0-44.0); LYMPHOCYTE # 1.2 TH/MM3 (1.0-4.8); MEAN CELL VOLUME 89.1 FL (80.0-100.0); MEAN CORPUSCULAR HEMOGLOBIN 29.8 PG (27.0-34.0); MEAN CORPUSCULAR HGB CONC 33.5 % (32.0-36.0); MONO % 10.4 % (0.0-8.0); PLATELET COUNT 139 TH/MM3 (150-450); RED BLOOD COUNT 3.44 MIL/MM3 (4.50-5.90); RED CELL DISTRIBUTION WIDTH 13.7 % (11.6-17.2); WHITE BLOOD COUNT 8.7 TH/MM3 (4.0-11.0)
[2017-01-22 05:23] LABS: HEMO FLAGS AUTO DIFF
[2017-01-22] MEDS: ceFAZolin 2 GM PREMIX 50 ML IV SCH ×3 (06:22→22:50)
[2017-01-22] MEDS: PANTOPRAZOLE SODIUM 40 MG VIAL IV SCH (08:25)
[2017-01-22] MEDS: FOLIC ACID 1 MG TAB PO SCH (08:25)
[2017-01-22] MEDS: THIAMINE HCL 100 MG TAB PO SCH (08:25)
[2017-01-22] MEDS: HEPARIN SODIUM - SQ 10,000 UNITS/ML VIAL SQ SCH ×2 (08:25→19:53)
[2017-01-22] MEDS: MULTIVITAMIN TAB PO SCH (08:26)
[2017-01-22 08:47] LABS: BANDS 7 % (0-6); BASOPHILS 1 % (0-2); CORRECTED NUCLEATED RBC 1 /100 WBC (0-0); EOSINOPHILS 3 % (0-4); METAMYELOCYTES 2 % (0-1); MYELOCYTES 4 % (0-0); NEUTROPHIL # MANUAL DIFF 6.7 TH/MM3 (1.8-7.7); OVALOCYTES 1+ (NORMAL); PLATELET ESTIMATE SMEAR LOW (NORMAL); PLATELET MORPHOLOGY NORMAL (NORMAL); POLYS (SEG NEUTROPHILS) 64 % (16-70); SCAN/DIFF FINAL DIFF MANUAL; WBC DIFF SAMPLE 100
--- NOTE | 2017-01-22 09:44 | PD.TRANSFR ---
Transfer Summary Admission Date Jan 18, 2017 at 03:38 Transfer Date: Jan 23, 2017 Admitting Diagnosis AMS, ARF, elevated lfts Diagnoses: (1) Severe sepsis Diagnosis: Principal (2) Wound dehiscence, surgical Diagnosis: Principal (3) Altered mental state Diagnosis: Secondary (4) Acute renal failure (5) Elevated liver enzymes Significant Findings S/P lumbar back surgery about 2 weeks ago in [facility]. [place] 2 [place] ago with suppurative drainage and dehiscence lumbar wound. Debrided by Dr. Springer 01/20, will require subsequent dressing changes. ID following. Objective Vital Signs Date Time Temp Pulse Resp B/P Pulse Ox O2 Delivery O2 Flow Rate FiO2 01/22/17 08:09 96 21 01/22/17 06:00 60 01/22/17 04:00 98.4 19 147/66 01/21/17 19:00 Room Air 01/21/17 09:00 1.00 Intake and Output 01/21/17 01/21/17 01/22/17 08:00 16:00 00:00 Intake Total 1089 ml 1173 ml 1352 ml Output Total 820 ml 476 ml 460 ml Balance 269 ml 697 ml 892 ml Result Diagram: 01/22/17 0426 01/22/17 0426 Objective Remarks GENERAL: Well-nourished, well-developed patient. SKIN: Warm and dry. HEAD: Normocephalic. NECK: Supple, trachea midline. No obstruction or stridor. CARDIOVASCULAR: Regular rate and rhythm without murmurs, gallops, or rubs. No JVD. RESPIRATORY: Breath sounds equal bilaterally. No accessory muscle use. Clear, no wheezes. GASTROINTESTINAL: Abdomen soft, non-tender, nondistended. BS active. EXTREMITIES: Warm, well perfused. NEURO: Moves 4 limbs. O X 3, conversant A/P Problem List: (1) Altered mental state ICD Code: R41.82 Status: Acute (2) Acute renal failure ICD Code: N17.9 Status: Acute (3) Wound dehiscence, surgical ICD Code: T81.31XA Status: Acute (4) Elevated liver enzymes ICD Code: R74.8 Status: Acute Assessment and Plan Epidural abscess - Surgically evacuation by Dr. Carlton - Broad-spectrum antibiotic - High dose Zosyn, Cefazolin, and Levaquin - ID consult appreciated Altered mental status - Due to above - Monitor neuro checks per ICU protocol -Improved 01/21 Acute kidney injury - SIRS - Aggressive IV fluid hydration - Monitor urine output - Monitor creatinine and electrolytes - improved DVT GI prophylaxis - Teds SCDs - Pharmacal DVT prophylaxis when okay with neurosurgery - Pepcid Overall impression: Complicated spinal wound infection transferred in from [facility]. Will require extensive debridement and closure procedures. Problem Qualifiers (1) Altered mental state: Qualified Code: R41.0 - Disorientation (2) Acute renal failure: Qualified Code: N17.9 - Acute renal failure, unspecified acute renal failure type Josafat Damon MD Jan 22, 2017 09:44
[2017-01-22] MEDS: LEVOFLOXACIN 750 MG TAB PO SCH (13:35)
[2017-01-22] MEDS: ACETAMINOPHEN/HYDROcodone 325 MG/10 MG TAB PO PRN ×2 (13:36→19:53)
--- NOTE | 2017-01-22 14:34 | HHI.GIFU ---
Subjective Remarks Pt resting comfortably in bed. No abdominal pain, n/v. Objective Vitals I&O Vital Signs Date Time Temp Pulse Resp B/P Pulse Ox O2 Delivery O2 Flow Rate FiO2 01/22/17 10:00 100 01/22/17 08:09 96 21 01/22/17 08:00 98.2 62 17 166/74 95 01/22/17 08:00 62 01/22/17 07:00 Room Air 01/22/17 06:00 60 01/22/17 04:00 98.4 60 19 147/66 96 01/22/17 04:00 60 01/22/17 02:00 68 01/22/17 00:00 98.5 60 17 146/72 98 01/22/17 00:00 60 01/21/17 22:00 73 01/21/17 20:00 77 01/21/17 20:00 98.3 77 26 147/72 98 01/21/17 19:00 Room Air 01/21/17 18:00 66 01/21/17 16:00 99.0 72 24 145/84 98 01/21/17 16:00 72 I/O 01/21/17 01/21/17 01/21/17 01/22/17 01/22/17 01/22/17 07:00 15:00 23:00 07:00 15:00 23:00 Intake Total 1089 ml 1173 ml 1352 ml 1215 ml Output Total 820 ml 476 ml 460 ml 360 ml Balance 269 ml 697 ml 892 ml 855 ml Intake Oral 240 ml 300 ml 240 ml 100 ml IV Total 849 ml 873 ml 1112 ml 1115 ml Output Urine Total 800 ml 475 ml 450 ml 350 ml Drainage Total 20 ml 1 ml 10 ml 10 ml # Bowel Movements 0 0 0 Laboratory Laboratory Tests Test 01/22/17 04:26 White Blood Count 8.7 Red Blood Count 3.44 Hemoglobin 10.3 Hematocrit 30.7 Mean Corpuscular Volume 89.1 Mean Corpuscular Hemoglobin 29.8 Mean Corpuscular Hemoglobin 33.5 Concent Red Cell Distribution Width 13.7 Platelet Count 139 Mean Platelet Volume 7.8 Neutrophils (%) (Auto) 69.0 Lymphocytes (%) (Auto) 13.7 Monocytes (%) (Auto) 10.4 Eosinophils (%) (Auto) 6.4 Basophils (%) (Auto) 0.5 Neutrophils # (Auto) 6.0 Lymphocytes # (Auto) 1.2 Monocytes # (Auto) 0.9 Eosinophils # (Auto) 0.6 Basophils # (Auto) 0.0 CBC Comment AUTO DIFF Differential Total Cells 100 Counted Neutrophils % (Manual) 64 Band Neutrophils % 7 Lymphocytes % 10 Monocytes % 9 Eosinophils % 3 Basophils % 1 Neutrophils # (Manual) 6.7 Metamyelocytes 2 Myelocytes 4 Nucleated Red Blood Cells 1 Differential Comment FINAL DIFF MANUAL Platelet Estimate LOW Platelet Morphology Comment NORMAL Ovalocytes 1+ Sodium Level 140 Potassium Level 3.8 Chloride Level 106 Carbon Dioxide Level 25.1 Anion Gap 9 Blood Urea Nitrogen 15 Creatinine 1.29 Estimat Glomerular Filtration 55 Rate Random Glucose 103 Calcium Level 8.5 Date/Time Procedure Status Source Growth 01/20/17 19:52 Gram Stain - Final Complete Wound Other 01/20/17 19:52 Wound Culture - Final Complete Staphylococcus Aureus 01/20/17 19:52 Fungal Smear - Final Resulted Wound Other NO FUNGAL ELEMENTS SEEN. 01/20/17 19:52 Fungal Culture Resulted Wound Other Pending 01/20/17 19:52 Acid Fast Stain - Final Resulted Wound Other NO ACID FAST BACILLI SEEN 01/20/17 19:52 Mycobacterial Culture Resulted Wound Other Pending 01/18/17 02:55 Urine Culture - Final Complete Urine Catheterized Urine NO GROWTH IN 48 HOURS. Imaging Last Impressions Lumbar Spine CT 01/20/17 0000 Signed Impressions: Service Date/Time: Friday, January 20, 2017 17:07 - CONCLUSION: Findings concerning for discitis at the L3-4 and L4-5 levels potential phlegmonous changes in the surrounding paravertebral tissues and along appears be an operative approach tract on the right at L3. Yan Alejo MD Chest X-Ray 01/20/17 0000 Signed Impressions: Service Date/Time: Friday, January 20, 2017 10:37 - CONCLUSION: 1. No acute cardiopulmonary findings. Anastacio Childress MD Abdomen X-Ray 01/20/17 0000 Signed Impressions: Service Date/Time: Friday, January 20, 2017 10:37 - CONCLUSION: 1. No metallic foreign bodies identified. 2. Degenerative changes in the lumbar spine and hips. Anastacio Childress MD Lumbar Spine X-Ray 01/19/17 0000 Signed Impressions: Service Date/Time: January 09:38 - CONCLUSION: Advanced discogenic degenerative changes L5-S1 without evidence of spondylolisthesis. Pascual Gamnig MD Head CT 01/18/17 0158 Signed Impressions: Service Date/Time: Wednesday, January 18, 2017 03:56 - CONCLUSION: Normal examination. Pascual Trevizo Jr., MD Abdomen Ultrasound 01/18/17 0000 Signed Impressions: Service Date/Time: Wednesday, January 18, 2017 12:25 - CONCLUSION: 1. Mild hepatic enlargement. 2. Gallbladder sludge without biliary ductal dilatation. 3. No hydronephrosis or perinephric fluid. No free fluid. Dl Sales MD Physical Exam HEENT: EOMI, normocephalic, atraumatic CHEST: CTA HEART: RRR ABDOMEN: soft, nontender, BS + x 4 EXTREMITIES: no edema SKIN: no jaundice; bandage on lower back APPLICATION DEVELOPMENT LIAISON: alert, cooperative, no focal deficits Assessment and Plan Plan ASSESSMENT: - LFTs remain elevated - 01/21 AST 219, ALT 251, ALP 131. will rck. suspect r/t hep C infection. JAY neg, ASMA neg, rest of liver w/u still pending US 01/18/17- ---> mild hepatic enlargement, gallbladder sludge without biliary ductal dilatation - pos hep C antibody, viral load and genotype still pending. - ALETHA- ferritin elevated 1376, decreased TIBC and iron PLAN: - await results hep C viral load and genotype - await rest of liver w/u This pt was seen by myself and Dr. Lira and this note is written on his behalf. Jennifer SrinivasanP Jan 22, 2017 14:34 Jennifer Srinivasan Jan 22, 2017 14:34
[2017-01-22 17:53] LABS: HCV RNA PCR IU/ML LESS THAN 15 IU/mL (()); HCV RNA PCR LOGIU/ML LESS THAN 1.18 (())
--- NOTE | 2017-01-22 18:34 | HHI.NSPN ---
History Interval History 71-year-old male with recent lumbar laminectomy in [place]. Apparently for herniated nucleus pulposus. He came back to the [facility] anticipating further lumbar surgery at the [facility]. He presented to the hospital with confusion, renal failure, elevated transaminases, probable sepsis. Under signed call by infectious disease this afternoon regarding the patient's status with confusion, possible decreased lower extremity motor function. Patient sent to CT scan for possible CT aspiration abscess. Discussed with radiology and patient was initially examined by the undersigned in the radiology CT scanning suite today. Exam Results Vital Signs Date Time Temp Pulse Resp B/P Pulse Ox O2 Delivery O2 Flow Rate FiO2 01/22/17 18:00 82 01/22/17 16:00 98.5 20 135/68 95 01/22/17 08:09 21 01/22/17 07:00 Room Air 01/21/17 09:00 1.00 Intake and Output 01/21/17 01/21/17 01/22/17 08:00 16:00 00:00 Intake Total 1089 ml 1173 ml 1352 ml Output Total 820 ml 476 ml 460 ml Balance 269 ml 697 ml 892 ml Physical Examination Respirations clear and regular, nonlabored Cardiac regular without murmur Abdomen soft and nontender Sitting up in chair Awake and alert Speech oriented and conversant Follow simple commands well Sensation intact by touch all extremities Strength normal major flexion and extension groups all extremities Mild drainage on dressing Drain in place Medical Decision Making Impression and Plan Impression: 1. Status post debridement of lumbar wound, evacuation epidural abscess. Sensorimotor exam lower extremity stable postoperative. Mental status significantly improved postoperative Plan: Discussed with nursing staff Discontinue drain Discussed with patient IV antibiotics continuing per infectious disease Physical therapy Maintain current wet-to-dry dressings Wound care consult He will need VAC dressing placed Chi Springer MD Jan 22, 2017 18:34
[2017-01-22] MEDS: SODIUM CHLORIDE 0.9% FLUSH 10 ML FLUSH IV FLUSH SCH (19:54)
[2017-01-22] MEDS: HYDROmorphone HCL PF 1 MG/ML VIAL IV PRN (20:52)
[2017-01-22] MEDS ORDERED: MELATONIN 5 MG TAB PO PRN (22:45)
[2017-01-22 23:50] LABS: HEPATITIS C RNA GENOTYPE NOT DETECTED (())
[2017-01-22 23:52] LABS: MITOCHONDRIAL ABS LESS THAN 20.0 U (())
[2017-01-23] VITALS (9 sets, daily range): BP systolic 125–142; BP diastolic 58–77; PULSE 59–74; RESP 14–20; TEMP 97.5–99; O2SAT 94–98
[2017-01-23] MEDS: PIPERACIL-TAZO 4.5 GM PREMIX 100 ML IV SCH ×4 (01:51→21:47)
[2017-01-23] MEDS: ACETAMINOPHEN/HYDROcodone 325 MG/10 MG TAB PO PRN ×4 (01:51→21:45)
[2017-01-23 03:06] LABS: AUTOMATED NEUTROPHIL # 6.3 TH/MM3 (1.8-7.7); BASOPHIL % 0.5 % (0.0-2.0); EOSINOPHIL # 0.6 TH/MM3 (0-0.4); EOSINOPHIL % 6.7 % (0.0-4.0); HEMATOCRIT 29.9 % (39.0-51.0); HEMO FLAGS AUTO DIFF; LYMPH % 15.2 % (9.0-44.0); LYMPHOCYTE # 1.4 TH/MM3 (1.0-4.8); MEAN CELL VOLUME 88.3 FL (80.0-100.0); MEAN CORPUSCULAR HEMOGLOBIN 29.9 PG (27.0-34.0); MEAN CORPUSCULAR HGB CONC 33.9 % (32.0-36.0); MONO % 8.7 % (0.0-8.0); NEUT % 68.9 % (16.0-70.0); PLATELET COUNT 156 TH/MM3 (150-450); RED BLOOD COUNT 3.38 MIL/MM3 (4.50-5.90); RED CELL DISTRIBUTION WIDTH 13.3 % (11.6-17.2); WHITE BLOOD COUNT 9.2 TH/MM3 (4.0-11.0)
[2017-01-23] MEDS: CHLORHEXIDINE GLUCONATE 2 % 1 PACK (2 CLOTHS) TOP SCH (03:18)
[2017-01-23 03:29] LABS: INDIRECT BILIRUBIN 0.4 MG/DL (0.0-0.8); TOTAL BILIRUBIN ADULT 0.7 MG/DL (0.2-1.0)
[2017-01-23 04:25] LABS: BANDS 11 % (0-6); EOSINOPHILS 8 % (0-4); METAMYELOCYTES 4 % (0-1); MYELOCYTES 1 % (0-0); POLYS (SEG NEUTROPHILS) 60 % (16-70); WBC DIFF SAMPLE 100
[2017-01-23 04:26] LABS: PLATELET ESTIMATE SMEAR NORMAL (NORMAL); PLATELET MORPHOLOGY NORMAL (NORMAL); SCAN/DIFF FINAL DIFF MANUAL
[2017-01-23] MEDS: ceFAZolin 2 GM PREMIX 50 ML IV SCH ×3 (06:42→21:45)
[2017-01-23] MEDS: THIAMINE HCL 100 MG TAB PO SCH (08:18)
[2017-01-23] MEDS: SODIUM CHLOR 0.9% 1000 ML INJ 1,000 ML IV SCH ×2 (08:18→17:49)
[2017-01-23] MEDS: HEPARIN SODIUM - SQ 10,000 UNITS/ML VIAL SQ SCH ×2 (08:18→21:43)
[2017-01-23] MEDS: MULTIVITAMIN TAB PO SCH (08:18)
[2017-01-23] MEDS: PANTOPRAZOLE SODIUM 40 MG VIAL IV SCH (08:19)
[2017-01-23] MEDS: DOCUSATE SODIUM 50 MG/SENNA 8.6 MG TAB PO PRN (08:24)
[2017-01-23] MEDS: FOLIC ACID 1 MG TAB PO SCH (08:24)
[2017-01-23] MEDS: LEVOFLOXACIN 750 MG TAB PO SCH (14:40)
--- NOTE | 2017-01-23 14:50 | HHI.GIFU ---
Subjective Remarks Resting in bed. No n/v. No abdominal pain. Objective Vitals I&O Vital Signs Date Time Temp Pulse Resp B/P Pulse Ox O2 Delivery O2 Flow Rate FiO2 01/23/17 14:00 65 01/23/17 12:00 98 Room Air 01/23/17 12:00 98.7 62 16 135/62 98 01/23/17 09:30 20 01/23/17 08:00 98.4 74 16 129/68 98 01/23/17 08:00 74 01/23/17 07:36 21 01/23/17 06:00 65 01/23/17 04:00 59 01/23/17 04:00 97.8 59 20 135/63 94 01/23/17 02:00 64 01/23/17 00:00 69 01/23/17 00:00 99.0 69 14 125/58 96 01/22/17 22:00 70 01/22/17 20:00 81 01/22/17 20:00 99.0 81 23 143/78 96 01/22/17 20:00 96 Room Air 01/22/17 18:00 82 01/22/17 16:00 98.5 62 20 135/68 95 01/22/17 16:00 62 I/O 01/22/17 01/22/17 01/22/17 01/23/17 01/23/17 01/23/17 07:00 15:00 23:00 07:00 15:00 23:00 Intake Total 1215 ml 948 ml 1022 ml 1155 ml Output Total 360 ml 580 ml 525 ml 450 ml Balance 855 ml 368 ml 497 ml 705 ml Intake Oral 100 ml 350 ml 120 ml 60 ml IV Total 1115 ml 598 ml 902 ml 1095 ml Output Urine Total 350 ml 550 ml 525 ml 450 ml Drainage Total 10 ml 30 ml # Bowel Movements 0 0 0 Laboratory Laboratory Tests Test 01/23/17 02:18 White Blood Count 9.2 Red Blood Count 3.38 Hemoglobin 10.1 Hematocrit 29.9 Mean Corpuscular Volume 88.3 Mean Corpuscular Hemoglobin 29.9 Mean Corpuscular Hemoglobin 33.9 Concent Red Cell Distribution Width 13.3 Platelet Count 156 Mean Platelet Volume 8.3 Neutrophils (%) (Auto) 68.9 Lymphocytes (%) (Auto) 15.2 Monocytes (%) (Auto) 8.7 Eosinophils (%) (Auto) 6.7 Basophils (%) (Auto) 0.5 Neutrophils # (Auto) 6.3 Lymphocytes # (Auto) 1.4 Monocytes # (Auto) 0.8 Eosinophils # (Auto) 0.6 Basophils # (Auto) 0.0 CBC Comment AUTO DIFF Differential Total Cells 100 Counted Neutrophils % (Manual) 60 Band Neutrophils % 11 Lymphocytes % 9 Monocytes % 7 Eosinophils % 8 Neutrophils # (Manual) 7.0 Metamyelocytes 4 Myelocytes 1 Differential Comment FINAL DIFF MANUAL Platelet Estimate NORMAL Platelet Morphology Comment NORMAL Total Bilirubin 0.7 Direct Bilirubin 0.3 Indirect Bilirubin 0.4 Aspartate Amino Transf 312 (AST/SGOT) Alanine Aminotransferase 139 (ALT/SGPT) Alkaline Phosphatase 134 Total Protein 6.4 Albumin 1.7 Date/Time Procedure Status Source Growth 01/20/17 19:52 Gram Stain - Final Complete Wound Other 01/20/17 19:52 Wound Culture - Final Complete Staphylococcus Aureus 01/20/17 19:52 Fungal Smear - Final Resulted Wound Other NO FUNGAL ELEMENTS SEEN. 01/20/17 19:52 Fungal Culture Resulted Wound Other Pending 01/20/17 19:52 Acid Fast Stain - Final Resulted Wound Other NO ACID FAST BACILLI SEEN 01/20/17 19:52 Mycobacterial Culture Resulted Wound Other Pending Imaging Last Impressions Lumbar Spine CT 01/20/17 0000 Signed Impressions: Service Date/Time: Friday, January 20, 2017 17:07 - CONCLUSION: Findings concerning for discitis at the L3-4 and L4-5 levels potential phlegmonous changes in the surrounding paravertebral tissues and along appears be an operative approach tract on the right at L3. Yan Alejo MD Chest X-Ray 01/20/17 0000 Signed Impressions: Service Date/Time: Friday, January 20, 2017 10:37 - CONCLUSION: 1. No acute cardiopulmonary findings. Anastacio Childress MD Abdomen X-Ray 01/20/17 0000 Signed Impressions: Service Date/Time: Friday, January 20, 2017 10:37 - CONCLUSION: 1. No metallic foreign bodies identified. 2. Degenerative changes in the lumbar spine and hips. Anastacio Childress MD Lumbar Spine X-Ray 01/19/17 0000 Signed Impressions: Service Date/Time: January 09:38 - CONCLUSION: Advanced discogenic degenerative changes L5-S1 without evidence of spondylolisthesis. Pascual Gaming MD Head CT 01/18/17 0158 Signed Impressions: Service Date/Time: Wednesday, January 18, 2017 03:56 - CONCLUSION: Normal examination. Pascual Trevizo Jr., MD Abdomen Ultrasound 01/18/17 0000 Signed Impressions: Service Date/Time: Wednesday, January 18, 2017 12:25 - CONCLUSION: 1. Mild hepatic enlargement. 2. Gallbladder sludge without biliary ductal dilatation. 3. No hydronephrosis or perinephric fluid. No free fluid. 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 Abdomen Ultrasound (01/18/17)----> 1. Mild hepatic enlargement. 2. Gallbladder sludge without biliary ductal dilatation. 3. No hydronephrosis or perinephric fluid. No free fluid. ALpha 1 Antitrypsin 298, Ceruloplasmin pending, JAY negative, AMA < 20.0, ASMA negative, Ferritin 1376, Iron saturation 13.4%, Hepatitis C Antibodies ( +), but genotype and viral load undetectable. He does not have hepatitis C. LFT derangement likely related to infection. He is on Zosyn, but came in with elevated LFTs on admission prior to receiving zosyn. LFT now 0.4, AST 312, ALT 139, ALk Phosph 134 - Hepatitis C Antibodies- Genotype and viral load undetectable. - ALETHA. 10.11/13.9. - CRISTINO, Improved. - Epidural abscess. S/P Debridement. Abx per ID PLAN: - FELTON - AFP level - Monitor LFTs - LFT derangement likely related to infection, possibly aggravated by medications. If no improvement in the next few days or if worsening of LFTs, then will need to consider liver biopsy - Supportive care - FUrther recommendations to follow based on results of above - PT seen and examined by Dr. Lira and myself and this note is written on his behalf Anat BiggsP Jan 23, 2017 14:50
--- NOTE | 2017-01-23 14:53 | HHI.PR ---
Subjective Remarks Assuming care from dairy nutrition specialist service. Patient reports he is feeling much better. 0 pain. Discussed with RN. He is now oriented and participating with treatment. Objective Vitals Vital Signs Date Time Temp Pulse Resp B/P Pulse Ox O2 Delivery O2 Flow Rate FiO2 01/23/17 14:00 65 01/23/17 12:00 98 Room Air 01/23/17 12:00 98.7 62 16 135/62 98 01/23/17 09:30 20 01/23/17 08:00 98.4 74 16 129/68 98 01/23/17 08:00 74 01/23/17 07:36 21 01/23/17 06:00 65 01/23/17 04:00 59 01/23/17 04:00 97.8 59 20 135/63 94 01/23/17 02:00 64 01/23/17 00:00 69 01/23/17 00:00 99.0 69 14 125/58 96 01/22/17 22:00 70 01/22/17 20:00 81 01/22/17 20:00 99.0 81 23 143/78 96 01/22/17 20:00 96 Room Air 01/22/17 18:00 82 01/22/17 16:00 98.5 62 20 135/68 95 01/22/17 16:00 62 I/O 01/22/17 01/22/17 01/22/17 01/23/17 01/23/17 01/23/17 07:00 15:00 23:00 07:00 15:00 23:00 Intake Total 1215 ml 948 ml 1022 ml 1155 ml Output Total 360 ml 580 ml 525 ml 450 ml Balance 855 ml 368 ml 497 ml 705 ml Intake Oral 100 ml 350 ml 120 ml 60 ml IV Total 1115 ml 598 ml 902 ml 1095 ml Output Urine Total 350 ml 550 ml 525 ml 450 ml Drainage Total 10 ml 30 ml # Bowel Movements 0 0 0 Result Diagram: 01/23/17 0218 01/22/17 0426 Objective Remarks GENERAL: Patient sitting up in the chair. No acute distress SKIN: Dressing over her lower back is clean, dry, and intact CARDIOVASCULAR: Regular rate and rhythm without murmurs RESPIRATORY: Clear to auscultation. Breath sounds equal bilaterally. No wheezes GASTROINTESTINAL: Abdomen soft, non-tender, nondistended. No palpable masses. No guarding. MUSCULOSKELETAL: Extremities without edema. NEUROLOGICAL: Awake and alert, oriented 4. Normal speech. Can move all extremities. A/P Problem List: (1) Severe sepsis ICD Code: A41.9 Status: Acute (2) Wound dehiscence, surgical ICD Code: T81.31XA Status: Acute (3) Altered mental state ICD Code: R41.82 Status: Acute (4) Acute renal failure ICD Code: N17.9 Status: Acute (5) Elevated liver enzymes ICD Code: R74.8 Status: Acute Assessment and Plan 71-year-old male with recent back surgery in [facility] admitted with encephalopathy, drainage from the surgical wound. Epidural abscess - Surgically evacuation by Dr. Carlton - Broad-spectrum antibiotic - High dose Zosyn, Cefazolin, and Levaquin - ID consult appreciated Acute kidney injury: Secondary to above. Resolved with IV fluid. - Avoid nephrotoxins. Continue to monitor. Elevated LFTs: Probably related to hepatitis C. - GI following. Viral load and genotype pending. Alcohol abuse: Patient admits to drinking 3-4 cans of beer on a daily basis. however per daughter he drinks more than this. on thiamine, folate and multivitamin. Ativan as needed for seizures. Ativan as needed for withdrawal symptoms. Seizure and fall precautions in place. DVT proph: SCDs. Chemoprophylaxis when cleared by neurosurgery Discharge Planning Okay to transfer to floor. Problem Qualifiers (1) Altered mental state: Qualified Code: R41.0 - Disorientation (2) Acute renal failure: Qualified Code: N17.9 - Acute renal failure, unspecified acute renal failure type Nia Herrera MD Jan 23, 2017 14:53
[2017-01-23] MEDS: SODIUM CHLORIDE 0.9% FLUSH 10 ML FLUSH IV FLUSH SCH (21:45)
[2017-01-24] VITALS (7 sets, daily range): BP systolic 132–165; BP diastolic 74–94; PULSE 69–83; RESP 16–20; TEMP 98.1–99.7; O2SAT 96–100
[2017-01-24] MEDS: PIPERACIL-TAZO 4.5 GM PREMIX 100 ML IV SCH ×2 (01:05→08:34)
[2017-01-24] MEDS: SODIUM CHLOR 0.9% 1000 ML INJ 1,000 ML IV SCH ×3 (01:06→21:34)
[2017-01-24] MEDS: CHLORHEXIDINE GLUCONATE 2 % 1 PACK (2 CLOTHS) TOP SCH (01:15)
[2017-01-24] MEDS: LORazepam 2 MG/ML VIAL IV PUSH PRN ×3 (01:17→21:34)
[2017-01-24] MEDS: ceFAZolin 2 GM PREMIX 50 ML IV SCH ×3 (06:04→23:51)
[2017-01-24] MEDS: PANTOPRAZOLE SODIUM 40 MG VIAL IV SCH (08:39)
[2017-01-24] MEDS: HEPARIN SODIUM - SQ 10,000 UNITS/ML VIAL SQ SCH ×2 (08:46→21:34)
[2017-01-24] MEDS: THIAMINE HCL 100 MG TAB PO SCH (08:47)
[2017-01-24] MEDS: FOLIC ACID 1 MG TAB PO SCH (08:47)
[2017-01-24] MEDS: MULTIVITAMIN TAB PO SCH (08:48)
[2017-01-24] MEDS: SODIUM CHLORIDE 0.9% FLUSH 10 ML FLUSH IV FLUSH SCH ×2 (08:48→21:35)
[2017-01-24 09:51] LABS: HEMATOCRIT 28.1 % (39.0-51.0); MEAN CORPUSCULAR HEMOGLOBIN 30.1 PG (27.0-34.0); MEAN CORPUSCULAR HGB CONC 34.6 % (32.0-36.0); PLATELET COUNT 146 TH/MM3 (150-450); RED BLOOD COUNT 3.23 MIL/MM3 (4.50-5.90); RED CELL DISTRIBUTION WIDTH 13.9 % (11.6-17.2); REVIEW FLAG FINAL; WHITE BLOOD COUNT 8.8 TH/MM3 (4.0-11.0)
[2017-01-24 10:26] LABS: INDIRECT BILIRUBIN 0.4 MG/DL (0.0-0.8); POTASSIUM 3.4 MEQ/L (3.5-5.1); TOTAL BILIRUBIN ADULT 0.9 MG/DL (0.2-1.0)
[2017-01-24] MEDS: ACETAMINOPHEN/HYDROcodone 325 MG/10 MG TAB PO PRN ×2 (10:47→21:33)
--- NOTE | 2017-01-24 11:30 | HHI.NSPN ---
Note Status Status: Progress Note Interval History Diagnosis 1. Epidural abscess s/p laminectomy 2. Altered mental status Interval History This is a 71-year-old male POD # 4 s/p evacuation of an epidural abscess on 2016. His neurologic and mental status continue to improve. His daughter today stated that he is back to his normal mental state when seen this morning. He had no complaints when seen except for low back pain which was tolerable. He has been up to the chair using a walker with PT but has not ambulated. Labs, Micro, & Vital Signs Results Allergies Coded Allergies Type Severity Reaction Last Updated Verified No Known Allergies 01/18/17 No ///// 06:00 18:00 06:00 18:00 06:00 18:00 Intake Total 2567 ml 948 ml 2177 ml 950 ml Output Total 820 ml 580 ml 975 ml 650 ml 300 ml Balance 1747 ml 368 ml 1202 ml 300 ml -300 ml Intake Oral 340 ml 350 ml 180 ml IV Total 2227 ml 598 ml 1997 ml 950 ml Output Urine Total 800 ml 550 ml 975 ml 650 ml 300 ml Drainage Total 20 ml 30 ml # Bowel Movements 0 0 0 0 Laboratory Tests Test 01/22/17 01/23/17 01/24/17 04:26 02:18 08:58 White Blood Count 8.7 TH/MM3 9.2 TH/MM3 8.8 TH/MM3 Red Blood Count 3.44 MIL/MM3 3.38 MIL/MM3 3.23 MIL/MM3 Hemoglobin 10.3 GM/DL 10.1 GM/DL 9.7 GM/DL Hematocrit 30.7 % 29.9 % 28.1 % Mean Corpuscular Volume 89.1 FL 88.3 FL 87.0 FL Mean Corpuscular Hemoglobin 29.8 PG 29.9 PG 30.1 PG Mean Corpuscular Hemoglobin 33.5 % 33.9 % 34.6 % Concent Red Cell Distribution Width 13.7 % 13.3 % 13.9 % Platelet Count 139 TH/MM3 156 TH/MM3 146 TH/MM3 Mean Platelet Volume 7.8 FL 8.3 FL 8.0 FL Neutrophils (%) (Auto) 69.0 % 68.9 % Lymphocytes (%) (Auto) 13.7 % 15.2 % Monocytes (%) (Auto) 10.4 % 8.7 % Eosinophils (%) (Auto) 6.4 % 6.7 % Basophils (%) (Auto) 0.5 % 0.5 % Neutrophils # (Auto) 6.0 TH/MM3 6.3 TH/MM3 Lymphocytes # (Auto) 1.2 TH/MM3 1.4 TH/MM3 Monocytes # (Auto) 0.9 TH/MM3 0.8 TH/MM3 Eosinophils # (Auto) 0.6 TH/MM3 0.6 TH/MM3 Basophils # (Auto) 0.0 TH/MM3 0.0 TH/MM3 CBC Comment AUTO DIFF AUTO DIFF Differential Total Cells 100 100 Counted Neutrophils % (Manual) 64 % 60 % Band Neutrophils % 7 % 11 % Lymphocytes % 10 % 9 % Monocytes % 9 % 7 % Eosinophils % 3 % 8 % Basophils % 1 % Neutrophils # (Manual) 6.7 TH/MM3 7.0 TH/MM3 Metamyelocytes 2 % 4 % Myelocytes 4 % 1 % Nucleated Red Blood Cells 1 /100 WBC Differential Comment FINAL DIFF FINAL DIFF MANUAL MANUAL Platelet Estimate LOW NORMAL Platelet Morphology Comment NORMAL NORMAL Ovalocytes 1+ Sodium Level 140 MEQ/L 136 MEQ/L Potassium Level 3.8 MEQ/L 3.4 MEQ/L Chloride Level 106 MEQ/L 101 MEQ/L Carbon Dioxide Level 25.1 MEQ/L 24.0 MEQ/L Anion Gap 9 MEQ/L 11 MEQ/L Blood Urea Nitrogen 15 MG/DL 12 MG/DL Creatinine 1.29 MG/DL 1.15 MG/DL Estimat Glomerular Filtration 55 ML/MIN 63 ML/MIN Rate Random Glucose 103 MG/DL 85 MG/DL Calcium Level 8.5 MG/DL 8.4 MG/DL Total Bilirubin 0.7 MG/DL 0.9 MG/DL Direct Bilirubin 0.3 MG/DL 0.5 MG/DL Indirect Bilirubin 0.4 MG/DL 0.4 MG/DL Aspartate Amino Transf 312 U/L 361 U/L (AST/SGOT) Alanine Aminotransferase 139 U/L 131 U/L (ALT/SGPT) Alkaline Phosphatase 134 U/L 158 U/L Total Protein 6.4 GM/DL 6.3 GM/DL Albumin 1.7 GM/DL 1.7 GM/DL Tumor Marker Alpha Fetoprotein 0.9 NG/ML Procedure Category Date Status Time Physician Name Changes ADMITTING 01/21/17 Transmitted Consult Hospitalist CONS 01/22/17 Transmitted Complete Blood Count LAB 01/23/17 Complete With Diff 06:00 Diet Regular Basic DIET 01/22/17 Transmitted Dinner Hepatic Functional LAB 01/23/17 Complete Panel 06:00 Patient Transfer ADMITTING 01/22/17 Transmitted ^ Instruction JENNIFER 01/22/17 In Process 18:02 ^ Drain JENNIFER 01/22/17 In Process 18:34 Melatonin (Melatonin) MED 01/22/17 In Process 22:45 Physician Name Changes ADMITTING 01/23/17 Transmitted Isolation JENNIFER 01/23/17 Complete 08:57 Afp, Tumor Marker LAB 01/23/17 Complete 14:42 Hepatic Functional LAB 01/24/17 Complete Panel 06:00 Cbc No Diff, Includes LAB 01/24/17 Complete Plts 06:00 Basic Metabolic Panel LAB 01/24/17 Complete (Bmp) 06:00 Vital Signs Date Time Temp Pulse Resp B/P Pulse Ox O2 Delivery O2 Flow Rate FiO2 01/24/17 08:21 99.7 77 20 165/81 96 01/24/17 05:12 99.7 74 18 155/74 99 01/24/17 00:45 98.1 69 16 137/75 97 01/23/17 22:45 18 01/23/17 20:57 97.5 63 16 142/77 98 01/23/17 20:00 98 Room Air 01/23/17 16:39 98.4 71 18 126/59 96 01/23/17 14:00 65 01/23/17 12:00 98 Room Air 01/23/17 12:00 98.7 62 16 135/62 98 01/23/17 08:00 98.4 74 16 129/68 98 01/23/17 08:00 74 01/23/17 07:36 21 01/23/17 06:00 65 01/23/17 04:00 59 01/23/17 04:00 97.8 59 20 135/63 94 01/23/17 02:00 64 01/23/17 00:00 69 01/23/17 00:00 99.0 69 14 125/58 96 01/22/17 22:00 70 01/22/17 20:00 81 01/22/17 20:00 99.0 81 23 143/78 96 01/22/17 20:00 96 Room Air 01/22/17 18:00 82 01/22/17 16:00 98.5 62 20 135/68 95 01/22/17 16:00 62 01/22/17 14:00 58 01/22/17 12:00 97.8 68 22 159/66 99 01/22/17 12:00 68 01/22/17 10:00 100 01/22/17 08:09 96 21 01/22/17 08:00 98.2 62 17 166/74 95 01/22/17 08:00 62 01/22/17 07:00 Room Air 01/22/17 06:00 60 01/22/17 04:00 98.4 60 19 147/66 96 01/22/17 04:00 60 01/22/17 02:00 68 01/22/17 00:00 98.5 60 17 146/72 98 01/22/17 00:00 60 01/21/17 22:00 73 01/21/17 20:00 77 01/21/17 20:00 98.3 77 26 147/72 98 01/21/17 19:00 Room Air 01/21/17 18:00 66 01/21/17 16:00 99.0 72 24 145/84 98 01/21/17 16:00 72 01/21/17 14:00 93 01/21/17 12:00 98.8 68 19 156/72 97 01/21/17 12:00 68 Date Time Temp Pulse Resp B/P Pulse Ox O2 Delivery O2 Flow Rate FiO2 01/24/17 08:21 99.7 77 20 165/81 96 01/24/17 05:12 99.7 74 18 155/74 99 01/24/17 00:45 98.1 69 16 137/75 97 01/23/17 22:45 18 01/23/17 20:57 97.5 63 16 142/77 98 01/23/17 20:00 98 Room Air 01/23/17 16:39 98.4 71 18 126/59 96 01/23/17 14:00 65 01/23/17 12:00 98 Room Air 01/23/17 12:00 98.7 62 16 135/62 98 01/24/17 07:00 Intake Total 950 ml Output Total 950 ml Balance 0 ml Constitutional Vital Signs Date Time Temp Pulse Resp B/P Pulse Ox O2 Delivery O2 Flow Rate FiO2 01/24/17 08:21 99.7 77 20 165/81 96 01/24/17 05:12 99.7 74 18 155/74 99 01/24/17 00:45 98.1 69 16 137/75 97 01/23/17 22:45 18 01/23/17 20:57 97.5 63 16 142/77 98 01/23/17 20:00 98 Room Air 01/23/17 16:39 98.4 71 18 126/59 96 01/23/17 14:00 65 01/23/17 12:00 98 Room Air 01/23/17 12:00 98.7 62 16 135/62 98 01/24/17 07:00 Intake Total 950 ml Output Total 950 ml Balance 0 ml Review of Systems/Exam ROS Neuro: Denies any headache, dizziness, numbness or tingling. Right leg still feels weak. Respiratory: Denies any shortness of breath. Cardiac: Denies any chest pain or racing heart. GI: Denies any abdominal pain, nausea or vomiting. Exam Respiratory: Clear to auscultation bilaterally, equal excursion, non-laboured, on RA. Cardiac: Regular rate & rhythm w/o murmur, gallop or rub. Radial & pedal pulses 2+ bilaterally. GI: Abdomen soft, non-tender, bowel sound all quadrants. Back: Surgical incision to lumbar region with intact dressing w/o any shadowing. Serosanguinous drainage noted on packing with scant slightly purulent drainage noted to deep distal portion. TTP around site. Skin: Buttocks with pressure wounds, right buttock with bleeding superficial wound. Neuro: Awake, alert & oriented x3, speech clear & appropriate, follows commands. Sensation intact to light touch to BLE. Motor strength bilateral hip flexion 4/5 but appears to be related to pain, left knee flexion & extension & right knee extension 5/5, right knee flexion 3/5 but appears to be r/t pain and plantar flexion & extension 5/5. Medications Current Medications Current Medications Medications (Trade) Dose Ordered Sig/Sukhwinder Route Start Time Stop Time Status Last Admin (Vitamin B1) 100 mg DAILY PO 01/18/17 10:00 01/24/17 08:47 (Folate) 1 mg DAILY PO 01/18/17 10:00 01/24/17 08:47 (Theragran) 1 tab DAILY PO 01/18/17 10:00 01/24/17 08:48 (Heparin Inj) 5,000 units Q12HR SQ 01/18/17 21:00 01/24/17 08:46 (NS Flush) 2 ml UNSCH PRN IV FLUSH 01/18/17 12:00 (NS Flush) 2 ml BID IV FLUSH 01/18/17 21:00 01/24/17 08:48 (Narcan Inj) 0.4 mg UNSCH PRN IV 01/18/17 12:00 (Ativan Inj) 1 mg Q2H PRN IV PUSH 01/18/17 15:30 01/20/17 13:55 (Morphine Inj) 2 mg Q4HR PRN IV PUSH 01/19/17 08:00 01/19/17 16:36 ([place] 5-325 Mg) 1 tab Q4H PRN PO 01/19/17 08:00 01/22/17 10:13 ([place] 10-325 Mg) 1 tab Q6H PRN PO 01/19/17 08:00 01/24/17 10:47 (Iris-Colace) 1 tab BID PRN PO 01/19/17 08:00 01/23/17 08:24 Padimate O 1 applic 1 applic UNSCH PRN TOPICAL 01/19/17 18:00 Cefazolin Sodium/ Dextrose 50 ml @ 150 mls/hr Q8H IV 01/20/17 15:00 01/24/17 06:04 (Zosyn 4.5 Gm Premix) 100 ml @ 200 mls/hr Q6H IV 01/20/17 14:00 01/24/17 08:34 (Levaquin) 750 mg Q24H PO 01/20/17 14:00 01/23/17 14:40 Lorazepam 1 mg 1 mg Q4H PRN IV PUSH 01/20/17 16:45 01/24/17 01:17 (NS 1000 ml Inj) 1,000 ml @ 125 mls/hr Q8H IV 01/20/17 18:00 01/24/17 01:06 (Tylenol) 650 mg Q6H PRN PO 01/20/17 17:30 (Morphine Inj) 2 mg Q2H PRN IV 01/20/17 17:30 01/22/17 23:40 (Dilaudid Pf Inj) 0.5 mg Q4H PRN IV 01/20/17 17:30 01/22/17 20:52 (Protonix Inj) 40 mg DAILY IV 01/20/17 17:30 01/24/17 08:39 (Zofran Inj) 4 mg Q6H PRN IV 01/20/17 17:30 Miscellaneous Information 1 Q361D XX 01/20/17 17:30 (Chlorhexidine 2% Cloth) 3 pack Taper DAILY@04 TOP 01/21/17 04:00 01/17/18 03:59 01/22/17 04:00 (Chlorhexidine 2% Cloth) 3 pack UNSCH PRN TOP 01/20/17 17:30 (Melatonin) 5 mg HS PRN PO 01/22/17 22:45 01/22/17 22:49 Medical Decision Making MDM Remarks 1. Status post debridement of lumbar wound, evacuation epidural abscess. Stable to improving sensorimotor exam to lower extremities. Improved mental status. Plan Plan Remarks Discussed with nursing staff Discussed with patient & daughter Antibiotics per Infectious Disease Physical therapy Continue wet-to-dry dressings Wound care consult He will need VAC dressing placed Giles Shipman Jan 24, 2017 11:30
--- NOTE | 2017-01-24 13:48 | HHI.IDPN ---
Subjective Subjective Remarks sp I+D, evacuation of epidural abscess, feels better OP report reviewewd: gross purulence encounted pt is afebrile OP clx only grew MSSA walks with walker Antibiotics zosyn cefazolin levaquine Allergies: Coded Allergies: No Known Allergies (Unverified , 01/18/17) Objective . Vital Signs Date Time Temp Pulse Resp B/P Pulse Ox O2 Delivery O2 Flow Rate FiO2 01/24/17 12:58 99.2 75 20 159/79 01/24/17 08:21 99.7 77 20 165/81 96 01/24/17 05:12 99.7 74 18 155/74 99 01/24/17 00:45 98.1 69 16 137/75 97 01/23/17 22:45 18 01/23/17 20:57 97.5 63 16 142/77 98 01/23/17 20:00 98 Room Air 01/23/17 16:39 98.4 71 18 126/59 96 01/23/17 14:00 65 01/23/17 01/23/17 01/24/17 15:00 23:00 07:00 Intake Total 950 ml Output Total 650 ml 300 ml Balance 300 ml -300 ml IV Total 950 ml Output Urine Total 650 ml 300 ml # Bowel Movements 0 . Laboratory Tests Test 01/23/17 01/24/17 02:18 08:58 White Blood Count 9.2 TH/MM3 8.8 TH/MM3 Red Blood Count 3.38 MIL/MM3 3.23 MIL/MM3 Hemoglobin 10.1 GM/DL 9.7 GM/DL Hematocrit 29.9 % 28.1 % Mean Corpuscular Volume 88.3 FL 87.0 FL Mean Corpuscular Hemoglobin 29.9 PG 30.1 PG Mean Corpuscular Hemoglobin 33.9 % 34.6 % Concent Red Cell Distribution Width 13.3 % 13.9 % Platelet Count 156 TH/MM3 146 TH/MM3 Mean Platelet Volume 8.3 FL 8.0 FL Neutrophils (%) (Auto) 68.9 % Lymphocytes (%) (Auto) 15.2 % Monocytes (%) (Auto) 8.7 % Eosinophils (%) (Auto) 6.7 % Basophils (%) (Auto) 0.5 % Neutrophils # (Auto) 6.3 TH/MM3 Lymphocytes # (Auto) 1.4 TH/MM3 Monocytes # (Auto) 0.8 TH/MM3 Eosinophils # (Auto) 0.6 TH/MM3 Basophils # (Auto) 0.0 TH/MM3 CBC Comment AUTO DIFF Differential Total Cells 100 Counted Neutrophils % (Manual) 60 % Band Neutrophils % 11 % Lymphocytes % 9 % Monocytes % 7 % Eosinophils % 8 % Neutrophils # (Manual) 7.0 TH/MM3 Metamyelocytes 4 % Myelocytes 1 % Differential Comment FINAL DIFF MANUAL Platelet Estimate NORMAL Platelet Morphology Comment NORMAL Laboratory Tests Test 01/23/17 01/24/17 02:18 08:58 Total Bilirubin 0.7 MG/DL 0.9 MG/DL Direct Bilirubin 0.3 MG/DL 0.5 MG/DL Indirect Bilirubin 0.4 MG/DL 0.4 MG/DL Aspartate Amino Transf 312 U/L 361 U/L (AST/SGOT) Alanine Aminotransferase 139 U/L 131 U/L (ALT/SGPT) Alkaline Phosphatase 134 U/L 158 U/L Total Protein 6.4 GM/DL 6.3 GM/DL Albumin 1.7 GM/DL 1.7 GM/DL Sodium Level 136 MEQ/L Potassium Level 3.4 MEQ/L Chloride Level 101 MEQ/L Carbon Dioxide Level 24.0 MEQ/L Anion Gap 11 MEQ/L Blood Urea Nitrogen 12 MG/DL Creatinine 1.15 MG/DL Estimat Glomerular Filtration 63 ML/MIN Rate Random Glucose 85 MG/DL Calcium Level 8.4 MG/DL Tumor Marker Alpha Fetoprotein 0.9 NG/ML Imaging Last Impressions Lumbar Spine MRI 01/20/17 1253 Signed Impressions: Service Date/Time: Friday, January 20, 2017 14:10 - CONCLUSION: 1. Abnormal MRI as described above consistent with an inflammatory process. 2. There would appear to be surgical clips posteriorly to the L3-4 level suggesting previous surgery. Lalito Childress MD FACR Lumbar Spine CT 01/20/17 0000 Signed Impressions: Service Date/Time: Friday, January 20, 2017 17:07 - CONCLUSION: Findings concerning for discitis at the L3-4 and L4-5 levels potential phlegmonous changes in the surrounding paravertebral tissues and along appears be an operative approach tract on the right at L3. Yan Alejo MD Chest X-Ray 01/20/17 0000 Signed Impressions: Service Date/Time: Friday, January 20, 2017 10:37 - CONCLUSION: 1. No acute cardiopulmonary findings. Anastacio Childress MD Abdomen X-Ray 01/20/17 0000 Signed Impressions: Service Date/Time: Friday, January 20, 2017 10:37 - CONCLUSION: 1. No metallic foreign bodies identified. 2. Degenerative changes in the lumbar spine and hips. Anastacio Childress MD Lumbar Spine X-Ray 01/19/17 0000 Signed Impressions: Service Date/Time: January 09:38 - CONCLUSION: Advanced discogenic degenerative changes L5-S1 without evidence of spondylolisthesis. Pascual Gaming MD Head CT 01/18/17 0158 Signed Impressions: Service Date/Time: Wednesday, January 18, 2017 03:56 - CONCLUSION: Normal examination. Pascual Trevizo Jr., MD Abdomen Ultrasound 01/18/17 0000 Signed Impressions: Service Date/Time: Wednesday, January 18, 2017 12:25 - CONCLUSION: 1. Mild hepatic enlargement. 2. Gallbladder sludge without biliary ductal dilatation. 3. No hydronephrosis or perinephric fluid. No free fluid. Dl Sales MD Physical Exam CONSTITUTIONAL/GENERAL: This is an adequately nourished patient, in no apparent distress. TUBES/LINES/DRAINS: SKIN: No jaundice, rashes, or lesions. EYES: Pupils equal and round and reactive. Extraocular motions intact. No scleral icterus. No injection or drainage. Fundi not examined. ENT: Oral mucosae without visible erythema, exudates, masses, or lesions. NECK: Trachea midline. Supple, nontender. No palpable thyroid enlargement or nodularity. CARDIOVASCULAR: Regular rate and rhythm without murmurs, gallops, or rubs. No JVD. Peripheral pulses symmetric. RESPIRATORY/CHEST: Symmetric, unlabored respirations. Clear to auscultation. Breath sounds equal bilaterally. No wheezes, rales, or rhonchi. GASTROINTESTINAL: Abdomen soft, non-tender, nondistended. GENITOURINARY: Without palpable bladder distension. Rosa catheter in place with slightly cloudy urine MUSCULOSKELETAL: Extremities without clubbing, cyanosis, or edema. No joint tenderness or effusion noted. No calf tenderness. No mottling or clubbing. BACK: pt refused to turn 2/2 discomfort/ke aw with turning LYMPHATICS: No palpable cervical or supraclavicular adenopathy. NEUROLOGICAL: Awake and alert. Confused. Unreliable historian. Oriented x 1-2 Motor and sensory grossly within normal limits upper extremeties and LLE moves only 2+-3-/5 . Follows commands. PSYCH: calm and cooperative Assessment & Plan Remarks L spine wound infx, pos-op, MSSA, PSAE Epidural abscess, MSSA -sp surgical repeair, debriedment and abscess evacuation - clx with MSSA, - PSAE ? colonisation: was not present in deep clx Rec's: dc zosyn cont cefazoline cont levaquine anticipate 3 mos of IV abx , with po abx after PICC pt wants to go back to [facility] after dc dw case mngr Bindu Reynolds MD Jan 24, 2017 13:48
--- NOTE | 2017-01-24 13:50 | HHI.FF ---
Infusion Therapy Location of Infusion Therapy: [facility] Infusion Therapy Order Patient Information Patient Weight 92.5 kg Diagnosis: Diagnosis Epidural abscess Coded Allergies: No Known Allergies (Unverified , 01/18/17) Administer Medication Cefazolin 2 grams IV q 8 hours Start Treatment: Jan 24, 2017 Stop Treatment: Apr 21, 2017 Additional Information Venous access: PICC Line Additional Instructions [x] Peripheral flush and dressing changes per protocol [x] Implanted port and central meter and service line inspector: * Implanted port: 10 ml Normal Saline followed by 5 ml Heparin 100 units/ml Heparin flush after each use and monthly to maintain. [] May leave port accessed during therapy. [] May leave peripheral site accessed for duration of therapy. [x] If patient has SOB or respiratory distress, check oxygen saturation. If less than 90% or clinical signs of respiratory distress, administer oxygen at 2 L/min. via nasal cannula and notify physician. [x] Anaphylaxis/Reaction orders: * Stop infusion. * Keep IV line open with saline flush. * Notify physician. * Monitor vital signs every 15 minutes until symptoms resolve. * Check Oxygen saturation; Oxygen at 2 L/min. via nasal cannula if less than 90% or clinical signs of respiratory distress. * Administer diphenhydramine (Benadryl) 25 mg IV STAT, (unless patient has received as pre-med). May repeat once, if necessary. * Solu-Cortef 250 mg IVP over 30-60 seconds, use 100 mg vials for each dissolution. * Epinephrine (1mg/1 ml) 0.3 mg subcutaneously or IVP now with any signs of respiratory distress. * Check with physician for new additional pre-med orders if patient is re- challenged or re-treated. [x] May remove PICC line when treatment complete, after confirming with Physician. [x] If the patient is admitted to the hospital, the ED, or transferred via [facility] , complete transfer form including medication reconciliation order sheet. Laboratory Tests Weekly Labs: CBC w/diff, Creatinine, LFT's (Hepatic function test), SED Rate Bindu Reynolds MD Jan 24, 2017 13:50
[2017-01-24] MEDS: LEVOFLOXACIN 750 MG TAB PO SCH (14:37)
[2017-01-24] MEDS: ACETAMINOPHEN/HYDROcodone 325 MG/5 MG TAB PO PRN (14:38)
--- NOTE | 2017-01-24 14:38 | HHI.GIFU ---
Subjective Remarks Pt resting comfortably in bed. Denies n/v, abd pain, change in bowel habits. Objective Vitals I&O Vital Signs Date Time Temp Pulse Resp B/P Pulse Ox O2 Delivery O2 Flow Rate FiO2 01/24/17 12:58 99.2 75 20 159/79 01/24/17 08:21 99.7 77 20 165/81 96 01/24/17 05:12 99.7 74 18 155/74 99 01/24/17 00:45 98.1 69 16 137/75 97 01/23/17 22:45 18 01/23/17 20:57 97.5 63 16 142/77 98 01/23/17 20:00 98 Room Air 01/23/17 16:39 98.4 71 18 126/59 96 I/O 01/23/17 01/23/17 01/23/17 01/24/17 01/24/17 01/24/17 07:00 15:00 23:00 07:00 15:00 23:00 Intake Total 1155 ml 950 ml Output Total 450 ml 650 ml 300 ml 1100 ml Balance 705 ml 300 ml -300 ml -1100 ml Intake Oral 60 ml IV Total 1095 ml 950 ml Output Urine Total 450 ml 650 ml 300 ml 1100 ml # Bowel Movements 0 Laboratory Laboratory Tests Test 01/24/17 08:58 White Blood Count 8.8 Red Blood Count 3.23 Hemoglobin 9.7 Hematocrit 28.1 Mean Corpuscular Volume 87.0 Mean Corpuscular Hemoglobin 30.1 Mean Corpuscular Hemoglobin 34.6 Concent Red Cell Distribution Width 13.9 Platelet Count 146 Mean Platelet Volume 8.0 Sodium Level 136 Potassium Level 3.4 Chloride Level 101 Carbon Dioxide Level 24.0 Anion Gap 11 Blood Urea Nitrogen 12 Creatinine 1.15 Estimat Glomerular Filtration 63 Rate Random Glucose 85 Calcium Level 8.4 Total Bilirubin 0.9 Direct Bilirubin 0.5 Indirect Bilirubin 0.4 Aspartate Amino Transf 361 (AST/SGOT) Alanine Aminotransferase 131 (ALT/SGPT) Alkaline Phosphatase 158 Total Protein 6.3 Albumin 1.7 Tumor Marker Alpha Fetoprotein 0.9 Date/Time Procedure Status Source Growth 01/20/17 19:52 Gram Stain - Final Complete Wound Other 01/20/17 19:52 Wound Culture - Final Complete Staphylococcus Aureus 01/20/17 19:52 Fungal Smear - Final Resulted Wound Other NO FUNGAL ELEMENTS SEEN. 01/20/17 19:52 Fungal Culture Resulted Wound Other Pending 01/20/17 19:52 Acid Fast Stain - Final Resulted Wound Other NO ACID FAST BACILLI SEEN 01/20/17 19:52 Mycobacterial Culture Resulted Wound Other Pending Imaging Last Impressions Lumbar Spine MRI 01/20/17 1253 Signed Impressions: Service Date/Time: Friday, January 20, 2017 14:10 - CONCLUSION: 1. Abnormal MRI as described above consistent with an inflammatory process. 2. There would appear to be surgical clips posteriorly to the L3-4 level suggesting previous surgery. Lalito Childress MD FACR Lumbar Spine CT 01/20/17 0000 Signed Impressions: Service Date/Time: Friday, January 20, 2017 17:07 - CONCLUSION: Findings concerning for discitis at the L3-4 and L4-5 levels potential phlegmonous changes in the surrounding paravertebral tissues and along appears be an operative approach tract on the right at L3. Yan Alejo MD Chest X-Ray 01/20/17 0000 Signed Impressions: Service Date/Time: Friday, January 20, 2017 10:37 - CONCLUSION: 1. No acute cardiopulmonary findings. Anastacio Childress MD Abdomen X-Ray 01/20/17 0000 Signed Impressions: Service Date/Time: Friday, January 20, 2017 10:37 - CONCLUSION: 1. No metallic foreign bodies identified. 2. Degenerative changes in the lumbar spine and hips. Anastacio Childress MD Lumbar Spine X-Ray 01/19/17 0000 Signed Impressions: Service Date/Time: January 09:38 - CONCLUSION: Advanced discogenic degenerative changes L5-S1 without evidence of spondylolisthesis. Pascual Gaming MD Head CT 01/18/17 0158 Signed Impressions: Service Date/Time: Wednesday, January 18, 2017 03:56 - CONCLUSION: Normal examination. Pascual Trevizo Jr., MD Abdomen Ultrasound 01/18/17 0000 Signed Impressions: Service Date/Time: Wednesday, January 18, 2017 12:25 - CONCLUSION: 1. Mild hepatic enlargement. 2. Gallbladder sludge without biliary ductal dilatation. 3. No hydronephrosis or perinephric fluid. No free fluid. Dl Sales MD Physical Exam HEENT: Normocephalic, atraumatic CHEST: CTA HEART: RRR ABDOMEN: Soft, nontender, BS + x 4 EXTREMITIES: no edema SKIN: No jaundice [employer]OR [employer] DEVELOPMENT: alert, cooperative, no focal deficits Assessment and Plan Plan ASSESSMENT: - LFT elevation. Abdomen Ultrasound (01/18/17)----> 1. Mild hepatic enlargement. 2. Gallbladder sludge without biliary ductal dilatation. 3. No hydronephrosis or perinephric fluid. No free fluid. ALpha 1 Antitrypsin 298, Ceruloplasmin pending, JAY negative, AMA < 20.0, ASMA negative, Ferritin 1376, Iron saturation 13.4%, Hepatitis C Antibodies ( +), but genotype and viral load undetectable. He does not have hepatitis C. LFT derangement likely related to infection. He is on Zosyn, but came in with elevated LFTs on admission prior to receiving zosyn. LFT now 0.5, AST 361, ALT 131, ALk Phosph 158. AFP 0.9. - Hepatitis C Antibodies- Genotype and viral load undetectable. - ALETHA. 9.7/28.1. - CRISTINO, Improved. - Epidural abscess. S/P Debridement. Abx per ID PLAN: - [place] - Monitor LFTs - LFT derangement likely related to infection, possibly aggravated by medications. If no improvement in the next few days or if worsening of LFTs, then will need to consider liver biopsy - Supportive care - FUrther recommendations to follow based on results of above - PT seen and examined by Dr. Lira and myself and this note is written on his behalf Jennifer Srinivasan [facility] Jan 24, 2017 14:38
--- NOTE | 2017-01-24 16:32 | HHI.PR ---
Subjective Remarks Patient reports he is feeling okay. No pain at rest. Does have discomfort with movement. No shortness of breath. He is happy that he is improving. Objective Vitals Vital Signs Date Time Temp Pulse Resp B/P Pulse Ox O2 Delivery O2 Flow Rate FiO2 01/24/17 16:01 98.5 83 20 149/78 01/24/17 12:58 99.2 75 20 159/79 01/24/17 08:21 99.7 77 20 165/81 96 01/24/17 05:12 99.7 74 18 155/74 99 01/24/17 00:45 98.1 69 16 137/75 97 01/23/17 22:45 18 01/23/17 20:57 97.5 63 16 142/77 98 01/23/17 20:00 98 Room Air 01/23/17 16:39 98.4 71 18 126/59 96 I/O 01/23/17 01/23/17 01/23/17 01/24/17 01/24/17 01/24/17 07:00 15:00 23:00 07:00 15:00 23:00 Intake Total 1155 ml 950 ml 720 ml Output Total 450 ml 650 ml 300 ml 1100 ml Balance 705 ml 300 ml -300 ml -1100 ml 720 ml Intake Oral 60 ml 720 ml IV Total 1095 ml 950 ml Output Urine Total 450 ml 650 ml 300 ml 1100 ml # Bowel Movements 0 Result Diagram: 01/24/1785701/24/1758 Objective Remarks GENERAL: Patient sitting up in the chair. No acute distress SKIN: Dressing over her lower back is clean, dry, and intact CARDIOVASCULAR: Regular rate and rhythm without murmurs RESPIRATORY: Clear to auscultation. Breath sounds equal bilaterally. No wheezes GASTROINTESTINAL: Abdomen soft, non-tender, nondistended. No palpable masses. No guarding. MUSCULOSKELETAL: Extremities without edema. NEUROLOGICAL: Awake and alert, oriented 4. Normal speech. Can move all extremities. A/P Problem List: (1) Severe sepsis ICD Code: A41.9 Status: Acute (2) Wound dehiscence, surgical ICD Code: T81.31XA Status: Acute (3) Altered mental state ICD Code: R41.82 Status: Acute (4) Acute renal failure ICD Code: N17.9 Status: Acute (5) Elevated liver enzymes ICD Code: R74.8 Status: Acute Assessment and Plan 71-year-old male with recent back surgery in [facility] admitted with encephalopathy, drainage from the surgical wound. Epidural abscess - Surgically evacuation by Dr. Carlton - Broad-spectrum antibiotic - High dose Zosyn, Cefazolin, and Levaquin - ID consult appreciated. Discussed with Dr. Reynolds. Anticipate prolonged course of antibiotics about 3 months. Acute kidney injury: Secondary to above. Resolved with IV fluid. - Avoid nephrotoxins. Continue to monitor. Elevated LFTs: Probably related to hepatitis C. - GI following. Viral load and genotype pending. Alcohol abuse: Patient admits to drinking 3-4 cans of beer on a daily basis. however per daughter he drinks more than this. on thiamine, folate and multivitamin. Ativan as needed for seizures. Ativan as needed for withdrawal symptoms. Seizure and fall precautions in place. DVT proph: SCDs. Chemoprophylaxis when cleared by neurosurgery Discharge Planning Possible discharge to [place] soon if no further interventions by neurosurgery Problem Qualifiers (1) Altered mental state: Qualified Code: R41.0 - Disorientation (2) Acute renal failure: Qualified Code: N17.9 - Acute renal failure, unspecified acute renal failure type Nia Herrera MD Jan 24, 2017 16:32
[2017-01-24] MEDS ORDERED: LORazepam 2 MG/ML VIAL IV PUSH PRN (20:45)
[2017-01-25] MEDS: SODIUM CHLOR 0.9% 1000 ML INJ 1,000 ML IV SCH ×2 (02:33→10:00)
[2017-01-25] MEDS: ACETAMINOPHEN/HYDROcodone 325 MG/10 MG TAB PO PRN ×2 (03:00→11:07)
[2017-01-25 04:23] VITALS: BP 162/76; PULSE 77; RESP 18; TEMP 99.2; O2SAT 97
[2017-01-25] MEDS: CHLORHEXIDINE GLUCONATE 2 % 1 PACK (2 CLOTHS) TOP SCH (04:23)
[2017-01-25] MEDS: ceFAZolin 2 GM PREMIX 50 ML IV SCH ×2 (06:31→15:06)
[2017-01-25 07:28] VITALS: BP 141/71; PULSE 71; RESP 18; TEMP 97.6; O2SAT 99
[2017-01-25] MEDS ORDERED: LACTULOSE SYRUP 20 GM/30 ML CUP PO ONE (08:00)
[2017-01-25] MEDS: SODIUM CHLORIDE 0.9% FLUSH 10 ML FLUSH IV FLUSH SCH (08:14)
[2017-01-25] MEDS: PANTOPRAZOLE SODIUM 40 MG VIAL IV SCH (08:15)
[2017-01-25] MEDS: THIAMINE HCL 100 MG TAB PO SCH (08:19)
[2017-01-25] MEDS: MULTIVITAMIN TAB PO SCH (08:19)
[2017-01-25] MEDS: FOLIC ACID 1 MG TAB PO SCH (08:19)
[2017-01-25] MEDS: HEPARIN SODIUM - SQ 10,000 UNITS/ML VIAL SQ SCH (08:50)
[2017-01-25 10:33] LABS: INDIRECT BILIRUBIN 0.3 MG/DL (0.0-0.8); TOTAL BILIRUBIN ADULT 0.7 MG/DL (0.2-1.0)
[2017-01-25 11:35] VITALS: BP 174/89; PULSE 75; RESP 18; TEMP 97.9; O2SAT 96
[2017-01-25] MEDS ORDERED: VITA100T2 PO (12:02)
[2017-01-25] MEDS ORDERED: MELA1TAB22 PO (12:02)
[2017-01-25] MEDS ORDERED: HYDR-3516 PO (12:02)
[2017-01-25] MEDS ORDERED: HYDR-3583 PO (12:02)
[2017-01-25] MEDS ORDERED: FOLI1TAB4 PO (12:02)
--- NOTE | 2017-01-25 12:03 | HHI.DS ---
Discharge Summary Admission Date Jan 18, 2017 at 03:38 Discharge Date: Jan 25, 2017 Admitting Diagnosis AMS, ARF, elevated lfts (1) Severe sepsis ICD Code: A41.9 Diagnosis: Principal (2) Wound dehiscence, surgical ICD Code: T81.31XA Diagnosis: Principal (3) Altered mental state ICD Code: R41.82 Diagnosis: Secondary (4) Acute renal failure ICD Code: N17.9 (5) Elevated liver enzymes ICD Code: R74.8 (6) Abscess in epidural space of lumbar spine ICD Code: G06.1 (7) Impaired mobility and activities of daily living ICD Code: Z74.09 Procedures Evacuation of epidural abscess by Dr. Carlton. Brief History - From Admission HPI from the admitting physician: Pt is 71 yr old male w PMHX of back pain/lower extremity weakness was brought it to the hospital for altered mental status. Patient states he does not remember how he got here. He does remember getting to the airport in [facility] getting on the plane and admits to drinking about 3 beers yesterday with some medication and from there he does not remember the rest. He does tell me that he was on his way to [facility] to get a second surgery for his back however he was stopping to see his daughter in [place] who has made arrangements for him to get surgery within 3-4 days of arrival. Apparently, he saw a neurosurgeon back in [facility] for severe spinal strain and at that time it was recommended due to his symptoms to get emergent surgery. This occurred about 1.5 weeks ago. He was experiencing weakness right greater than left in his lower extremities. From records in the EMR, The patient reported to the ED physician that he took 2 clonazepam and had 2 beers while on the flight. The patient arrived slightly confused without any focal neurologic findings in the ED. He reported to the physician that he had low back surgery in [facility] 2-1/2 weeks ago. Denies any chest pain, shortness of breath, any cough, abdominal pain. He states he uses a walker to ambulate and had been ambulating prior to arrival here in the ED with his walker. Patient wishes to pursue further management of his back in [facility] in [place]. He denies any fevers or chills. He denies any prior history of kidney or liver disease. He does admit however that he had problem with his kidney a long time ago but that had resolved however it is unsure what the problem was. Otherwise, he says is pretty healthy. CBC/BMP: 01/24/17 0858 01/24/17 0858 Significant Findings Laboratory Tests Test 01/23/17 01/24/17 01/25/17 02:18 08:58 09:20 Red Blood Count 3.38 MIL/MM3 3.23 MIL/MM3 (4.50-5.90) (4.50-5.90) Hemoglobin 10.1 GM/DL 9.7 GM/DL (13.0-17.0) (13.0-17.0) Hematocrit 29.9 % 28.1 % (39.0-51.0) (39.0-51.0) Monocytes (%) (Auto) 8.7 % (0.0-8.0) Eosinophils (%) (Auto) 6.7 % (0.0-4.0) Eosinophils # (Auto) 0.6 TH/MM3 (0-0.4) Band Neutrophils % 11 % (0-6) Eosinophils % 8 % (0-4) Metamyelocytes 4 % (0-1) Myelocytes 1 % (0-0) Direct Bilirubin 0.3 MG/DL 0.5 MG/DL 0.4 MG/DL (0.0-0.2) (0.0-0.2) (0.0-0.2) Aspartate Amino Transf 312 U/L (15-37) 361 U/L (15-37) 339 U/L (15-37) (AST/SGOT) Alanine Aminotransferase 139 U/L (12-78) 131 U/L (12-78) 134 U/L (12-78) (ALT/SGPT) Alkaline Phosphatase 134 U/L 158 U/L 156 U/L (45-117) (45-117) (45-117) Albumin 1.7 GM/DL 1.7 GM/DL 1.9 GM/DL (3.4-5.0) (3.4-5.0) (3.4-5.0) Platelet Count 146 TH/MM3 (150-450) Potassium Level 3.4 MEQ/L (3.5-5.1) Estimat Glomerular Filtration 63 ML/MIN (>89) Rate Calcium Level 8.4 MG/DL (8.5-10.1) Total Protein 6.3 GM/DL (6.4-8.2) PE at Discharge GENERAL: Patient sitting up in the chair. No acute distress SKIN: Dressing over her lower back is clean, dry, and intact CARDIOVASCULAR: Regular rate and rhythm without murmurs RESPIRATORY: Clear to auscultation. Breath sounds equal bilaterally. No wheezes GASTROINTESTINAL: Abdomen soft, non-tender, nondistended. No palpable masses. No guarding. MUSCULOSKELETAL: Extremities without edema. NEUROLOGICAL: Awake and alert, oriented 4. Normal speech. Can move all extremities. Hospital Course 71-year-old male with recent back surgery in [facility] admitted with encephalopathy, drainage from the surgical wound. The patient was found to have an epidural abscess. He was in severe sepsis requiring ICU stay. He underwent evacuation by neurosurgery Dr. Carlton. Patient also presented in acute renal failure. This was likely secondary to his sepsis. This resolved with hydration. His liver enzymes were markedly elevated. He was followed by GI who indicated LFT derangements were likely secondary to Sepsis. In addition, the patient drinks alcohol. The patient was followed by infectious disease. He was treated with IV antibiotics. The patient improved but as expected has physical limitations requiring intensive rehabilitation. He is discharged to inpatient rehab at [place] to continue rehab efforts. Patient to continue antibiotics per the med rec. Patient would benefit from GI reconsult while in rehab regarding the LFT and wound care follow up. Pt Condition on Discharge: Stable Discharge Disposition: Rehab Inpatient Discharge Time: > 30 minutes Discharge Instructions DIET: Follow Instructions for: As Tolerated, No Restrictions Activities you can perform: See Additionl Instruction Other Activity Instructions: Per PT instructions New Medications: Folic Acid (Folate) 1 Mg Tab 1 MG PO DAILY #30 TAB Hydrocodone-Acetaminophen (Hydrocodone-Acetaminophen) 5-325 mg Tab 1 TAB PO Q4H PRN PAIN SCALE 3 TO 5 #30 TAB Hydrocodone-Acetaminophen (Hydrocodone-Acetaminophen) 10-325 mg Tab 1 TAB PO Q6H PRN PAIN SCALE 6 TO 10 #30 TAB Levofloxacin (Levaquin) 750 Mg Tab 750 MG PO Q24H Days 56 TAB Melatonin (Melatonin) 5 Mg Tab 5 MG PO HS PRN SLEEP #30 TAB Thiamine (Vitamin B-1) 100 Mg Tab 100 MG PO DAILY #30 TAB Discontinued Medications: Clonazepam (Clonazepam) 0.5 Mg Tab 0.5 MG PO BID #60 Ref 0 TAB Nia Herrera MD Jan 25, 2017 12:03
[2017-01-25 12:10] LABS: MEAN CELL VOLUME 88.1 FL (80.0-100.0); MEAN CORPUSCULAR HEMOGLOBIN 29.1 PG (27.0-34.0); PLATELET COUNT 162 TH/MM3 (150-450); RED BLOOD COUNT 3.29 MIL/MM3 (4.50-5.90); REVIEW FLAG FINAL; WHITE BLOOD COUNT 8.5 TH/MM3 (4.0-11.0)
[2017-01-25 12:32] LABS: BICARBONATE 25.6 MEQ/L (21.0-32.0); POTASSIUM 3.8 MEQ/L (3.5-5.1)
--- NOTE | 2017-01-25 14:29 | HHI.PR ---
Addendum to Inpatient Note Additional Information Pt has PSAE only in surface clx 1/3 will probably not reflecting deep infection Rx with Levaquine x 8 wks Bindu Reynolds MD Jan 25, 2017 14:29
[2017-01-25] MEDS: LEVOFLOXACIN 750 MG TAB PO SCH (15:06)
--- NOTE | 2017-01-25 15:22 | HHI.GIFU ---
Subjective Remarks Resting in bed. No n/v. No abdominal pain. States he may go to [place] today. D/W patient possible need for liver biopsy if no improvement in LFTs, but he states he is really not wanting a liver biopsy at this time. He states he would like to give it some more time and see if they start to go down. Objective Vitals I&O Vital Signs Date Time Temp Pulse Resp B/P Pulse Ox O2 Delivery O2 Flow Rate FiO2 01/25/17 11:35 97.9 75 18 174/89 96 01/25/17 07:28 97.6 71 18 141/71 99 01/25/17 04:23 99.2 77 18 162/76 97 01/24/17 23:45 98.6 71 18 132/94 99 01/24/17 21:35 Room Air 01/24/17 20:42 99.0 76 16 149/85 100 01/24/17 16:01 98.5 83 20 149/78 I/O 01/24/17 01/24/17 01/24/17 01/25/17 01/25/17 01/25/17 07:00 15:00 23:00 07:00 15:00 23:00 Intake Total 1183 ml 863 ml Output Total 300 ml 1100 ml 350 ml 800 ml Balance -300 ml -1100 ml 833 ml 63 ml Intake Oral 720 ml IV Total 463 ml 863 ml Output Urine Total 300 ml 1100 ml 350 ml 800 ml # Bowel Movements 0 0 0 Laboratory Laboratory Tests Test 01/25/17 01/25/17 09:20 11:51 Total Bilirubin 0.7 Direct Bilirubin 0.4 Indirect Bilirubin 0.3 Aspartate Amino Transf 339 (AST/SGOT) Alanine Aminotransferase 134 (ALT/SGPT) Alkaline Phosphatase 156 Total Protein 7.1 Albumin 1.9 White Blood Count 8.5 Red Blood Count 3.29 Hemoglobin 9.6 Hematocrit 29.0 Mean Corpuscular Volume 88.1 Mean Corpuscular Hemoglobin 29.1 Mean Corpuscular Hemoglobin 33.0 Concent Red Cell Distribution Width 14.0 Platelet Count 162 Mean Platelet Volume 7.7 Sodium Level 137 Potassium Level 3.8 Chloride Level 101 Carbon Dioxide Level 25.6 Anion Gap 10 Blood Urea Nitrogen 9 Creatinine 1.06 Estimat Glomerular Filtration 69 Rate Random Glucose 94 Calcium Level 8.5 Date/Time Procedure Status Source Growth 01/20/17 19:52 Gram Stain - Final Complete Wound Other 01/20/17 19:52 Wound Culture - Final Complete Staphylococcus Aureus 01/20/17 19:52 Fungal Smear - Final Resulted Wound Other NO FUNGAL ELEMENTS SEEN. 01/20/17 19:52 Fungal Culture Resulted Wound Other Pending 01/20/17 19:52 Acid Fast Stain - Final Resulted Wound Other NO ACID FAST BACILLI SEEN 01/20/17 19:52 Mycobacterial Culture Resulted Wound Other Pending Imaging Last Impressions Lumbar Spine MRI 01/20/17 1253 Signed Impressions: Service Date/Time: Friday, January 20, 2017 14:10 - CONCLUSION: 1. Abnormal MRI as described above consistent with an inflammatory process. 2. There would appear to be surgical clips posteriorly to the L3-4 level suggesting previous surgery. Lalito Childress MD FACR Lumbar Spine CT 01/20/17 0000 Signed Impressions: Service Date/Time: Friday, January 20, 2017 17:07 - CONCLUSION: Findings concerning for discitis at the L3-4 and L4-5 levels potential phlegmonous changes in the surrounding paravertebral tissues and along appears be an operative approach tract on the right at L3. Yan Alejo MD Chest X-Ray 01/20/17 0000 Signed Impressions: Service Date/Time: Friday, January 20, 2017 10:37 - CONCLUSION: 1. No acute cardiopulmonary findings. Anastacoi Childress MD Abdomen X-Ray 01/20/17 0000 Signed Impressions: Service Date/Time: Friday, January 20, 2017 10:37 - CONCLUSION: 1. No metallic foreign bodies identified. 2. Degenerative changes in the lumbar spine and hips. Anastacio Childress MD Lumbar Spine X-Ray 01/19/17 0000 Signed Impressions: Service Date/Time: January 09:38 - CONCLUSION: Advanced discogenic degenerative changes L5-S1 without evidence of spondylolisthesis. Pascual Gaming MD Head CT 01/18/17 0158 Signed Impressions: Service Date/Time: Wednesday, January 18, 2017 03:56 - CONCLUSION: Normal examination. Pascual Trevizo Jr., MD Abdomen Ultrasound 01/18/17 0000 Signed Impressions: Service Date/Time: Wednesday, January 18, 2017 12:25 - CONCLUSION: 1. Mild hepatic enlargement. 2. Gallbladder sludge without biliary ductal dilatation. 3. No hydronephrosis or perinephric fluid. No free fluid. Dl Sales MD Physical Exam HEENT: Normocephalic, atraumatic CHEST: CTA HEART: RRR ABDOMEN: Soft, nontender, BS + x 4 EXTREMITIES: no edema SKIN: No jaundice [employer]: alert, cooperative, no focal deficits Assessment and Plan Plan ASSESSMENT: - LFT elevation. Abdomen Ultrasound (01/18/17)----> 1. Mild hepatic enlargement. 2. Gallbladder sludge without biliary ductal dilatation. 3. No hydronephrosis or perinephric fluid. No free fluid. ALpha 1 Antitrypsin 298, Ceruloplasmin pending, JAY negative, AMA < 20.0, ASMA negative, Ferritin 1376, Iron saturation 13.4%, Hepatitis C Antibodies ( +), but genotype and viral load undetectable. He does not have hepatitis C. LFT derangement likely related to infection. He is on Zosyn, but came in with elevated LFTs on admission prior to receiving zosyn. LFT now 0.4 AST 339, ALT 134, ALk Phosph 156. AFP 0.9. D/ W patient possible need for liver biopsy if no improvement in LFTs, but he states he is really not wanting a liver biopsy at this time. He states he would like to give it some more time and see if they start to go down. - Hepatitis C Antibodies- Genotype and viral load undetectable. - ALETHA. 9.6/29.0. - CRISTINO, Improved. - Epidural abscess. S/P Debridement. Abx per ID PLAN: - [place] - Monitor LFTs - LFT derangement likely related to infection, possibly aggravated by medications. If no improvement in LFTs, consider liver biopsy. Pt does not wish to pursue this at this time. He would like to give it more time to see if his LFTs improve. - Supportive care - FUrther recommendations to follow based on results of above - PT seen and examined by Dr. Lira and myself and this note is written on his behalf Anat Biggs Jan 25, 2017 15:22
[2017-01-25] MEDS ORDERED: LEVA750T PO (17:01)
[2017-02-07] MEDS ORDERED: CEFA1INJ IV ×2 (18:31→18:44)
[2017-02-07] MEDS ORDERED: MILKSUS PO (18:44)
[2017-02-07] MEDS ORDERED: ONDA4TAB7 PO (18:44)
[2017-02-07] MEDS ORDERED: PANT40TA3 PO (18:44)
[2017-02-07] MEDS ORDERED: BISA10R RECTAL (18:44)
[2017-02-07] MEDS ORDERED: LIDO5DIS35 T-DERMAL (18:44)
[2017-02-07] MEDS ORDERED: POLY17S PO (18:44)
[2017-02-07] MEDS ORDERED: SODI0.9I IV (18:54)
[2017-02-22] MEDS ORDERED: FERR325T PO (08:26)
[2017-02-22] MEDS ORDERED: VITA500T PO (08:26)
[2017-02-22] MEDS ORDERED: LACT PO (08:26)
[2017-02-22] MEDS ORDERED: ESCI10TA PO (08:26)
[2017-02-22] MEDS ORDERED: LEVA750T PO (08:26)
[2017-02-22] MEDS ORDERED: HEPA10003 SQ (08:26)
[2017-02-22] MEDS ORDERED: CEFA1INJ IV (08:26)
[2017-02-22] MEDS ORDERED: QUET1TAB7 PO (08:26)
[2017-02-22] MEDS ORDERED: FAMO20TA2 PO (08:26)
[2017-02-22] MEDS ORDERED: MILKSUS PO (08:26)
[2017-02-22] MEDS ORDERED: ACET325T PO (08:26)
[2017-02-22] MEDS ORDERED: ONDA4TAB7 PO (08:26)
[2017-02-22] MEDS ORDERED: SENS113T TOPICAL (08:26)
[2017-02-22] MEDS ORDERED: VANC500I3 PO (08:28)
[2017-02-22] MEDS ORDERED: HYDR-3516 PO (08:43)
[2017-02-22] MEDS ORDERED: LORA-474 PO (08:43)
== END 2017-01-25 17:19 | DRG 853 ==
LOC: NEPE 00:19 → NEDA 03:38 → NEPFCDU 04:19 → NEPHCDU 04:37 → N03B 01-20 20:27 → N05A 01-23 16:58
PROVIDERS: ADMIT Family Medicine; ATTEND Family Medicine
PROC: 0QC Lower Bones, Extirpation (ICD-10-PCS; 2017-01-20)
PROC: 0JB70ZZ Excision of Back Subcutaneous Tissue and Fascia, Open Approach (ICD-10-PCS; principal; 2017-01-20 18:58)
DX: A41.9 Sepsis, unspecified organism (principal); G06.1 Intraspinal abscess and granuloma; G93.40 Encephalopathy, unspecified; N17.9 Acute kidney failure, unspecified; T81.31XA Disruption of external operation (surgical) wound, not elsewhere classified, initial encounter; N39.0 Urinary tract infection, site not specified; R65.20 Severe sepsis without septic shock; B19.20 Unspecified viral hepatitis C without hepatic coma; E86.0 Dehydration; F10.10 Alcohol abuse, uncomplicated; M48.06 Spinal stenosis, lumbar region; M51.37 Other intervertebral disc degeneration, lumbosacral region; A49.01 Methicillin susceptible Staphylococcus aureus infection, unspecified site
CPT/HCPCS: 51702; 70450; 72100; 72131; 72158; 76700; 80048; 80053; 80074; 80076; 80307; 81001; 82103; 82105; 82140; 82390; 82728; 83520; 83540; 83550; 83605; 84484; 85007; 85027; 85610; 86038; 86256; 86403; 86803; 87015; 87070; 87077; 87086; 87102; 87116; 87147; 87176; 87186; 87205; 87206; 87522; 87641; 87902; 93005; 94150; A9579; C9113; J0690; J0696; J1170; J1580; J1644; J2060; J2270; J2405; J2543; J3010; J3370; J7030; J7120

== ENCOUNTER 2017-02-07 20:29 | Inpatient (IN) | payer MEDICARE ==
[~2017-02-07] VITALS: Ht 175.3 cm; Wt 85.3 kg
[~2017-02-07 20:29] MED LIST: BISA10R RECTAL; CEFA1INJ IV; FOLI1TAB4 PO; HYDR-3516 PO; HYDR-3583 PO; LEVA750T PO; LIDO5DIS35 T-DERMAL; MELA1TAB22 PO; MILKSUS PO; ONDA4TAB7 PO; PANT40TA3 PO; POLY17S PO; SODI0.9I IV; VITA100T2 PO
[2017-02-07 23:00] VITALS: BP 133/63; PULSE 101; RESP 18; TEMP 99.3; O2SAT 97
[2017-02-07] MEDS ORDERED: SODIUM CHLORIDE 0.9% FLUSH 10 ML FLUSH IV FLUSH PRN (23:15)
[2017-02-07] MEDS ORDERED: NALOXONE HCL 0.4 MG/ML AMP IV PRN (23:15)
[2017-02-07] MEDS ORDERED: ONDANSETRON ODT 4 MG TAB PO PRN (23:45)
[2017-02-07] MEDS: SODIUM CHLOR 0.9% 1000 ML INJ 1,000 ML IV SCH (23:50)
[2017-02-07] MEDS: ceFAZolin 2 GM PREMIX 50 ML IV SCH (23:54)
[2017-02-08] VITALS: BP 131/71; PULSE 95; RESP 18; TEMP 99.6; O2SAT 96
[2017-02-08] MEDS ORDERED: LEVOFLOXACIN 750 MG/DEXTROSE 150 ML IV SCH (01:00)
[2017-02-08] MEDS: LORazepam 1 MG TAB PO PRN ×2 (02:53→22:26)
[2017-02-08 04:14] VITALS: BP 135/65; PULSE 94; RESP 18; TEMP 99.5; O2SAT 98
[2017-02-08] MEDS ORDERED: ACETAMINOPHEN/HYDROcodone 325 MG/5 MG TAB PO PRN (08:00)
[2017-02-08 08:14] VITALS: BP 134/67; PULSE 89; RESP 19; TEMP 98.8; O2SAT 97
[2017-02-08] MEDS: PANTOPRAZOLE SOD 40 MG DELAYED RELEASE TAB PO SCH (08:45)
[2017-02-08] MEDS: THIAMINE HCL 100 MG TAB PO SCH (08:45)
[2017-02-08] MEDS: ACETAMINOPHEN/HYDROcodone 325 MG/10 MG TAB PO PRN ×2 (08:45→16:33)
[2017-02-08] MEDS: ceFAZolin 2 GM PREMIX 50 ML IV SCH ×2 (08:46→14:49)
[2017-02-08] MEDS: SODIUM CHLORIDE 0.9% FLUSH 10 ML FLUSH IV FLUSH SCH ×2 (08:46→20:15)
[2017-02-08] MEDS: POLYETHYLENE GLYCOL 17 GM PKG PO SCH (08:46)
[2017-02-08] MEDS: SODIUM CHLOR 0.9% 1000 ML INJ 1,000 ML IV SCH ×2 (08:47→20:52)
[2017-02-08 10:08] LABS: AUTOMATED NEUTROPHIL # 4.2 TH/MM3 (1.8-7.7); BASOPHIL # 0.1 TH/MM3 (0-0.2); EOSINOPHIL # 0.2 TH/MM3 (0-0.4); EOSINOPHIL % 2.8 % (0.0-4.0); HEMO FLAGS DIFF FINAL; LYMPH % 14.3 % (9.0-44.0); LYMPHOCYTE # 0.9 TH/MM3 (1.0-4.8); MEAN CELL VOLUME 85.9 FL (80.0-100.0); MEAN CORPUSCULAR HEMOGLOBIN 28.8 PG (27.0-34.0); MEAN CORPUSCULAR HGB CONC 33.6 % (32.0-36.0); MONO % 12.4 % (0.0-8.0); NEUT % 69.5 % (16.0-70.0); PLATELET COUNT 341 TH/MM3 (150-450); RED BLOOD COUNT 3.14 MIL/MM3 (4.50-5.90); RED CELL DISTRIBUTION WIDTH 14.4 % (11.6-17.2); WHITE BLOOD COUNT 6.1 TH/MM3 (4.0-11.0)
[2017-02-08 10:11] LABS: INTERNATIONAL NORMALIZED RATIO 1.2 RATIO; PROTHROMBIN TIME - PATIENT 13.1 SEC (9.8-11.6)
[2017-02-08 10:39] LABS: BICARBONATE 19.7 MEQ/L (21.0-32.0); POTASSIUM 3.9 MEQ/L (3.5-5.1)
[2017-02-08] MEDS ORDERED: fentaNYL CITRATE 250 MCG/5 ML AMP ONE (11:20)
[2017-02-08] MEDS ORDERED: MIDAZOLAM HCL 5 MG/5 ML VIAL ONE (11:20)
[2017-02-08 12:55] VITALS: BP 125/77; PULSE 94; RESP 18; TEMP 98.6; O2SAT 94
--- NOTE | 2017-02-08 13:04 | PD.RAD ---
Post Procedure Progress Note Pre Procedure Diagnosis: (1) Abscess in epidural space of lumbar spine Post Procedure Diagnosis: (1) Abscess in epidural space of lumbar spine Procedure Date: Feb 08, 2017 Supervising Radiologist: Tan Abrams Proceduralist/Assist: Qing Sullivan, RT(R), Kathie Brown RT(R)() Anesthesia: Local, Analgesia, Conscious Sedation Plan of Activity Patient to Unit: ROPU Patient Condition: Good See PACS Report for procedural detail/treatment Spinal Procedure Disc Aspiration L3-L4 Fluid Removal (CCs): 1 Fluid Description: Cloudy, Bloody Puncture Time: 12:35 Biopsy: Right approach at l3-4 Tan Abrams MD Feb 08, 2017 13:04
--- NOTE | 2017-02-08 14:40 | HHI.HP ---
HPI Service [facility] Hospitalists Primary Care Physician Unknown Admission Diagnosis Diagnoses: Travel History International Travel<30 Days: No Contact w/Intl Traveler <30 Da: No Traveled to Known Affected Are: No History of Present Illness This is a 71-year-old male transferred from [place] for L3-4 disc aspirate 2/2 abnormal MRI showing edema in the L3, L4 and L5 vertebral bodies suspicious for osteomyelitis. Patient seen after procedure performed by IR. He is confused. Complains of LBP with movement. History mainly taken from EMR and discussion with [employer] who saw pt yesterday, IR MD and Rehab MD. 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 As per report, he has severe low back pain/lower extremity weakness after a back injury, states the neurosurgeon told him he had a bulging disc and underwent urgent lumbar surgery in [facility] about 14 days prior to admission. Postoperatively patient stated he had pain in the lower back as well as radiation down his right lower extremity and had planned for further surgery in [place] where he previously resided. The patient admits to 4-5 beers daily and boarded a plane from [facility] and had at least 3 beers en route and presented on 01/18/17 to [facility] emergency room with altered mental status. He was diagnosed with sepsis secondary to epidural abscess from postsurgical wound. Subsequent workup showed CT scan of the brain was negative. CT scan of the lumbar spine with concern of L2-3 discitis and phlegmon. He was taken emergently to IR for fluid collection drainage. His wound culture preliminary grows Staphylococcus and Pseudomonas and he underwent debridement lumbar wound dehiscence and evacuation lumbar epidural abscess on 01/20/[address] Reynolds was consulted and the patient was placed on IV cefazolin and, Zosyn and by mouth Levaquin. Dr. Lira, triage register nurse consulted for elevations in LFT : He felt LFT derangement likely related to infection/sepsis. Hepatitis C Antibodies (+), but genotype and viral load undetectable. Patient was offered a liver biopsy but declined and should follow up with gastroenterology upon discharge. He was discharged and transferred to [place] for comprehensive rehabilitation. Levaquin by mouth is to be continued for 8 weeks as per infectious disease. While in rehab, patient was stated to have change in mental status. Per daughter, patient's mental status have been on the decline since Monday he's been on and off confusion. States that he has been having some hallucinations Monday and Monday. Daughter says patient has been seeing bugs on the bright, being afraid to being recruited in the and be back in service, also has been seeing his brother sitting next to him. Review of Systems ROS Limitations: Altered Mental Status Constitutional: DENIES: Diaphoretic episodes, Fatigue, Fever, Weight gain, Weight loss, Chills, Dizziness, Change in appetite, Night Sweats Endocrine: DENIES: Heat/cold intolerance, Polydipsia, Polyuria, Polyphagia Eyes: DENIES: Blurred vision, Diplopia, Vision loss, Photosensitivity Ears, nose, mouth, throat: DENIES: Tinnitus, Vertigo, Throat pain, Hoarseness, Epistaxis, Odynophagia Respiratory: DENIES: Cough, Wheezing, Hemoptysis, Sputum production, Shortness of breath Cardiovascular: DENIES: Chest pain, Palpitations, Syncope, Dyspnea on Exertion , PND, Lower Extremity Edema, Orthopnea, Claudication Gastrointestinal: DENIES: Abdominal pain, Black stools, Bloody stools, Constipation, Diarrhea, Nausea, Vomiting, Difficulty Swallowing, Anorexia Genitourinary: DENIES: Urinary frequency, Urinary incontinence, Urgency, Hematuria, Dysuria, Nocturia, Penile Discharge Musculoskeletal: COMPLAINS OF: Back pain Integumentary: DENIES: Rash Neurologic: DENIES: Headache, Localized weakness, Seizures, Tremor, Poor Balance Psychiatric: COMPLAINS OF: Confusion, DENIES: Anxiety, Depression, Hallucinations, Agitation, Suicidal Ideation, Homicidal Ideation, Delusions Past Family Social History Past Medical History Low back pain, lower extremity weakness Anxiety Claustrophobia Past Surgical History Back surgery in [facility] 1-2 weeks ago Reported Medications Levaquin (Levofloxacin) 750 Mg Tab 750 Mg PO Q24H 56 Days Vitamin B-1 (Thiamine HCl) 100 Mg Tab 100 Mg PO DAILY Melatonin 5 Mg Tab 5 Mg PO HS PRN Hydrocodone-Acetaminophen 10-325 mg Tab 1 Tab PO Q6H PRN Hydrocodone-Acetaminophen 5-325 mg Tab 1 Tab PO Q4H PRN Folate (Folic Acid) 1 Mg Tab 1 Mg PO DAILY Allergies: Coded Allergies: No Known Allergies (Unverified , 01/18/17) Family History mother and father in the their 60's from colon cancer Father had mitral valve disease Social History drinks 4-5 beers a day, denies any prior hx of withdrawals or seizures denies any smoking hx or illegal drug use 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 SKIN: No rashes, ecchymoses or lesions. Warm and dry. Mid back area wound with packed dressing, no odor, no drainage noted. Wound bed is pink without any slough. HEAD: Atraumatic. Normocephalic. No temporal or scalp tenderness. EYES: Pupils equal round and reactive. Extraocular motions intact. No scleral icterus. No injection or drainage. ENT: Nose without bleeding. Throat without erythema. Uvula midline. Airway patent. NECK: Trachea midline. No JVD or lymphadenopathy. Supple, nontender, no meningeal signs. CARDIOVASCULAR: Regular rate and rhythm without murmurs, gallops, or rubs. RESPIRATORY: Clear to auscultation. Breath sounds equal bilaterally. No wheezes , rales, or rhonchi. GASTROINTESTINAL: Abdomen soft, non-tender, nondistended. Bowel sounds hypoactive 4. MUSCULOSKELETAL: Extremities without clubbing, cyanosis, or edema. DTR left +3, Right +2. NEUROLOGICAL: Confused. Motor and sensory grossly within normal limits. Normal speech. Laboratory Laboratory Tests Test 02/08/17 02/08/17 09:11 09:41 White Blood Count 6.1 Red Blood Count 3.14 Hemoglobin 9.1 Hematocrit 27.0 Mean Corpuscular Volume 85.9 Mean Corpuscular Hemoglobin 28.8 Mean Corpuscular Hemoglobin 33.6 Concent Red Cell Distribution Width 14.4 Platelet Count 341 Mean Platelet Volume 7.1 Neutrophils (%) (Auto) 69.5 Lymphocytes (%) (Auto) 14.3 Monocytes (%) (Auto) 12.4 Eosinophils (%) (Auto) 2.8 Basophils (%) (Auto) 1.0 Neutrophils # (Auto) 4.2 Lymphocytes # (Auto) 0.9 Monocytes # (Auto) 0.7 Eosinophils # (Auto) 0.2 Basophils # (Auto) 0.1 CBC Comment DIFF FINAL Differential Comment Sodium Level 136 Potassium Level 3.9 Chloride Level 102 Carbon Dioxide Level 19.7 Anion Gap 14 Blood Urea Nitrogen 13 Creatinine 1.47 Estimat Glomerular Filtration 47 Rate Random Glucose 88 Calcium Level 8.8 C-Reactive Protein 17.00 Prothrombin Time 13.1 Prothromb Time International 1.2 Ratio Result Diagram: 02/08/17 0911 02/08/17 0911 Assessment and Plan Problem List: (1) Acute renal failure ICD Code: N17.9 Status: Acute (2) Abscess in epidural space of lumbar spine ICD Code: G06.1 Status: Acute Assessment and Plan This is a 71-year-old male transferred from [place] for L3-4 disc aspirate 2/2 abnormal MRI showing edema in the L3, L4 and L5 vertebral bodies suspicious for osteomyelitis. Epidural abscess status post fluid collection drainage but still with elevated inflammatory markers Status post debridement lumbar wound and evacuation of epidural abscess 01/20/[address] Springer Altered mental status, encephalopathy - Patient was on IV cefazolin, Zosyn and by mouth Levaquin. He was switched over to Levaquin by mouth 8 weeks per ID upon admission to [facility] rehabilitation - Patient continues to have low grade temperature 99.0 - CT of the brain showed unremarkable and stable CT scan of the brain. #2 stable calcification of posterior right lobe - MRI lumbar spine showed 1. Abnormal examination with edema and enhancement within the L3, L4, and L5 vertebral bodies suspicious for osteomyelitis. This appearance is similar to the prior examination. 2. Abnormal L3 to L4 disc space suspicious for dyspnea tightness along with osteomyelitis. The appearance of this level has worsened in the interim bowel with increased material in the right paracentral location and in the epidural space suspicious of epidural infection. 3. At the L3 to L4 level there is spinal canal stenosis and severe right neural foraminal narrowing. 4. The right paraspinal fluid collection at L3 to L4 at the laminectomy site has decreased in size, as above. Additionally, the fluid collection appears to extend to the superficial overlying open wound. 5. There is abnormal edema and enhancement now appreciated in the right psoas muscle suggesting extension of infection into involving this structure as well. - Status post lumbar disc aspiration studies sent continue Levaquin and IV Ancef - Neurosurgery , ID and PMR consulted Acute kidney injury with urinary retention - Rosa catheter - Monitor urine output - Avoid nephrotoxins - IV fluid 100 mils an hour, monitor for fluid overload Anemia, normocytic normochromic - Possibly secondary to postop anemia - H&H stable 9.5 -->9.3 -->9.6 --> 9.2 - Check iron profile, ferritin EtOH - Continue with thiamine and folic acid - Counseled Hepatitis C - Follow up with GI as an outpatient DVT prop SCD and early ambulation. Hold pharmacological prophylaxis for now secondary to recent procedure PPI pantoprazole Discussed Condition With pt and nursing staff Physician Certification 2 Midnight Certification Type: Admission for Inpatient Services Order for Inpatient Services The services are ordered in accordance with Medicare regulations or non- Medicare payer requirements, as applicable. In the case of services not specified as inpatient-only, they are appropriately provided as inpatient services in accordance with the 2-midnight benchmark. Estimated LOS (days): 2 days is the estimated time the patient will need to remain in the hospital, assuming treatment plan goals are met and no additional complications. Post-Hospital Plan: Inpatient Rehab Harris Ibrahim MD Feb 08, 2017 14:40
--- NOTE | 2017-02-08 15:07 | RADRPT ---
EXAM DATE/TIME: 02/08/2017 13:15 [place] COMPARISON: No previous studies available for comparison. INDICATIONS : Patient with abnormal MRI of L3/L4 disc space in need of aspiration. MEDICAL HISTORY : Lower back pain, lower extremity weakness, anxiety SURGICAL HISTORY : Back surgery in [facility] 2 weeks ago Debridement lumbar wound, dehiscence and evacuation of lumbar epidural abscess 01/20/17 ENCOUNTER: Initial ACUITY: 3 weeks PAIN SCORE: 5/10 LOCATION: Lower back FLUORO TIME: 2.6 minutes IMAGE SERIES: 2 SEDATION TIME: 30 minutes MEDICATION(S): 1.) 2.5 mg midazolam (Versed) IV 2.) 125 mcg fentanyl (Sublimaze) IV DEVICE(S): 1.) 20 gauge spinal needle Core specimen(s) was obtained and submitted to laboratory for pathologic evaluation. PROCEDURE : 1. Fluoroscopically guided needle biopsy. 2. Conscious sedation with continuous EKG and Oximetry monitoring. The risks, benefits and alternatives to the procedure were explained and verbal and written consent w as obtained. The site was prepped in sterile fashion. Full sterile technique was used, including cap, mask, steri le gloves and gown and a large sterile sheet. Hand hygiene and 2% chlorhexidine and/or betadine/alco hol prep was utilized per protocol for cutaneous antisepsis. The skin and subcutaneous tissues were infiltrated with local anesthetic solution. With fluoroscopic guidance, an 18 gauge Sanchez blunt needle was advanced down to the distal thirds o f the right side of L3-4. Through the outer cannula, 20 gauge FNA was obtained from the L3-4 disc. Th is was placed in a sterile culture container for laboratory analysis. The outer cannula was also aspi rated and the aspirate placed in the sterile culture container Conscious sedation was performed with the prescribed dosages and duration as above in the presence of an independent trained radiology nurse to assist in the monitoring of the patient. EKG and oximetry remained stable throughout the procedure. CONCLUSION: Uncomplicated needle biopsy of the L3-4 disc as above. Tan Abrams MD on February 08, 2017 at 14:54 Board Certified Radiologist. This report was verified electronically.
--- NOTE | 2017-02-08 16:02 | HHI.IDPN ---
Subjective Subjective Remarks doing OK afebrile confused SP CT guided aspiration by IR Antibiotics cefazolin levaquin Allergies: Coded Allergies: No Known Allergies (Unverified , 01/18/17) Objective . Vital Signs Date Time Temp Pulse Resp B/P Pulse Ox O2 Delivery O2 Flow Rate FiO2 02/08/17 12:55 98.6 94 18 125/77 94 02/08/17 08:14 98.8 89 19 134/67 97 02/08/17 04:14 99.5 94 18 135/65 98 02/08/17 00:00 99.6 95 18 131/71 96 02/07/17 23:00 99.3 101 18 133/63 97 02/07/17 02/07/17 02/08/17 15:00 23:00 07:00 Intake Total 750 ml Output Total 400 ml Balance 350 ml Intake IV Total 750 ml Output Urine Total 400 ml . Laboratory Tests Test 02/08/17 09:11 White Blood Count 6.1 TH/MM3 Red Blood Count 3.14 MIL/MM3 Hemoglobin 9.1 GM/DL Hematocrit 27.0 % Mean Corpuscular Volume 85.9 FL Mean Corpuscular Hemoglobin 28.8 PG Mean Corpuscular Hemoglobin 33.6 % Concent Red Cell Distribution Width 14.4 % Platelet Count 341 TH/MM3 Mean Platelet Volume 7.1 FL Neutrophils (%) (Auto) 69.5 % Lymphocytes (%) (Auto) 14.3 % Monocytes (%) (Auto) 12.4 % Eosinophils (%) (Auto) 2.8 % Basophils (%) (Auto) 1.0 % Neutrophils # (Auto) 4.2 TH/MM3 Lymphocytes # (Auto) 0.9 TH/MM3 Monocytes # (Auto) 0.7 TH/MM3 Eosinophils # (Auto) 0.2 TH/MM3 Basophils # (Auto) 0.1 TH/MM3 CBC Comment DIFF FINAL Differential Comment Laboratory Tests Test 02/08/17 09:11 Sodium Level 136 MEQ/L Potassium Level 3.9 MEQ/L Chloride Level 102 MEQ/L Carbon Dioxide Level 19.7 MEQ/L Anion Gap 14 MEQ/L Blood Urea Nitrogen 13 MG/DL Creatinine 1.47 MG/DL Estimat Glomerular Filtration 47 ML/MIN Rate Random Glucose 88 MG/DL Calcium Level 8.8 MG/DL C-Reactive Protein 17.00 MG/DL Microbiology Date/Time Procedure Status Source Growth 02/08/17 12:35 Gram Stain Received Abscess Other Pending 02/08/17 12:35 Wound Culture Received Abscess Other Pending 02/08/17 12:35 Acid Fast Stain Received Abscess Other Pending 02/08/17 12:35 Mycobacterial Culture Received Abscess Other Pending 02/08/17 12:35 Fungal Smear Received Abscess Other Pending 02/08/17 12:35 Fungal Culture Received Abscess Other Pending 02/08/17 13:58 Fungal Smear Received Abscess Other Pending 02/08/17 13:58 Fungal Culture Received Abscess Other Pending Imaging Last Impressions Needle Biopsy/Aspiration X-Ray 02/08/17 0000 Signed Impressions: Service Date/Time: Wednesday, February 08, 2017 13:15 - CONCLUSION: Uncomplicated needle biopsy of the L3-4 disc as above. Tan Abrams MD Physical Exam CONSTITUTIONAL/GENERAL: This is an adequately nourished patient, in no apparent distress. TUBES/LINES/DRAINS: SKIN: No jaundice, rashes, or lesions. Skin temperature appropriate. Not diaphoretic. CARDIOVASCULAR: Regular rate and rhythm without murmurs, gallops, or rubs. RESPIRATORY/CHEST: Symmetric, unlabored respirations. Clear to auscultation. GASTROINTESTINAL: Abdomen soft, non-tender, nondistended. No guarding. Bowel sounds present. GENITOURINARY: Without palpable bladder distension. Rosa catheter in place with clear yellow urine MUSCULOSKELETAL: Extremities without clubbing, cyanosis, or edema. NEUROLOGICAL: Awake and alert. Confused. Unreliable historian. Oriented x 1-2 Motor and sensory grossly within normal limits upper extremeties and LLE RLE with 3/5 . Follows commands. Assessment & Plan Remarks L3 4 and L4 5 spine diskitis, osteo, epidural abscess following L spine surgery; clx with MSSA, PSAE - sp evacuation of abscess - MRI progression ? clinical progression Rec's: cont cefazoline , levaquine fu L3 4 disc cultures. - further rec's per new clx report Bindu Reynolds MD Feb 08, 2017 16:02
[2017-02-08 16:35] VITALS: BP 131/75; PULSE 95; RESP 20; TEMP 97.9; O2SAT 100
--- NOTE | 2017-02-08 18:30 | PD.CONS ---
History of Present Illness Service Neurosurgery Consult Requested By Medicine service Dr. 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 He presented to the emergency room with a draining open wound in the lumbar spine and underwent an MRI which revealed lumbar discitis-osteomyelitis with epidural abscess. He underwent surgery for drainage of the epidural abscess on 01/30/17. He was subsequently discharged to [facility] inpatient rehabilitation. He reportedly has become more confused over the past 3-4 days. A follow-up MRI of the lumbar spine has been obtained and the patient transferred back to the hospital for further evaluation. Patient complains of severe low back pain without significant radiation to lower extremities. No significant lower extremity spasm. Review of Systems Constitutional: DENIES: Fever, Night Sweats Eyes: DENIES: Blurred vision Ears, nose, mouth, throat: DENIES: Vertigo, Ear Pain Cardiovascular: DENIES: Chest pain Gastrointestinal: DENIES: Abdominal pain, Nausea Musculoskeletal: COMPLAINS OF: Joint pain, Back pain, DENIES: Neck pain Neurologic: COMPLAINS OF: Abnormal gait, DENIES: Headache Psychiatric: COMPLAINS OF: Confusion, DENIES: Anxiety Past Family Social History Allergies: Coded Allergies: No Known Allergies (Unverified , 01/18/17) Past Medical History No history of significant cardiac, pulmonary, gastrointestinal disease, diabetes , hypertension Past Surgical History Lumbar spine surgery in [facility] Reported Medications Reported Meds & Active Scripts Active Sodium Chloride Inj (Sodium Chloride) 0.9 % Inj 100 Ml IV CONTINUOUS 1 Days Polyethylene Glycol 3350 Powder (Polyethylene Glycol) 17 Gm Pow 17 Gm PO DAILY Pantoprazole (Pantoprazole Sodium) 40 Mg Tab 40 Mg PO DAILY Ondansetron Odt 4 Mg Tab 4 Mg PO Q6H PRN Milk of Magnesia Liq (Magnesium Hydroxide) 400 Mg/5 Ml Susp 30 Ml PO DAILY PRN Lidoderm Patch 12 HR (Lidocaine) 5% Patch 1 Patch T-DERMAL DAILY Bisac-Evac Supp (Bisacodyl) 10 Mg Supp 10 Mg RECTAL DAILY PRN Cefazolin/Dextrose 2 gm/100Ml (Cefazolin in D5w) 1 Inj Inj 2 Gm IV Q8HR Levaquin (Levofloxacin) 750 Mg Tab 750 Mg PO Q24H 56 Days Vitamin B-1 (Thiamine HCl) 100 Mg Tab 100 Mg PO DAILY Hydrocodone-Acetaminophen 10-325 mg Tab 1 Tab PO Q6H PRN Hydrocodone-Acetaminophen 5-325 mg Tab 1 Tab PO Q4H PRN Folate (Folic Acid) 1 Mg Tab 1 Mg PO DAILY Family History History of colon cancer and his parents. Social History Drinks a few beers a day. No cigarette smoking Physical Exam Vital Signs Vital Signs Date Time Temp Pulse Resp B/P Pulse Ox O2 Delivery O2 Flow Rate FiO2 02/08/17 16:35 97.9 95 20 131/75 100 02/08/17 12:55 98.6 94 18 125/77 94 02/08/17 08:14 98.8 89 19 134/67 97 02/08/17 04:14 99.5 94 18 135/65 98 02/08/17 00:00 99.6 95 18 131/71 96 02/07/17 23:00 99.3 101 18 133/63 97 Physical Exam GENERAL: This is a well-nourished, well-developed patient, in no apparent distress. SKIN: No rashes, ecchymoses or lesions. Cool and dry. HEAD: Atraumatic. Normocephalic. No temporal or scalp tenderness. EYES: Pupils equal round and reactive. Extraocular motions intact. No scleral icterus. No injection or drainage. ENT: Nose without bleeding, purulent drainage or septal hematoma. Throat without erythema, tonsillar hypertrophy or exudate. Uvula midline. Airway patent. NECK: Trachea midline. No JVD or lymphadenopathy. Supple, nontender, no meningeal signs. CARDIOVASCULAR: Regular rate and rhythm without murmurs, gallops, or rubs. RESPIRATORY: Clear to auscultation. Breath sounds equal bilaterally. No wheezes , rales, or rhonchi. GASTROINTESTINAL: Abdomen soft, non-tender, nondistended. No hepato-splenomegaly , or palpable masses. No guarding. MUSCULOSKELETAL: Extremities without clubbing, cyanosis, or edema. No joint tenderness, effusion, or edema noted. No calf tenderness. Negative Homans sign bilaterally. NEUROLOGICAL: Awake and alert. Speech is moderately slowed along with thought processes. [id number] confusion. Some inappropriate responses to questions. Mild difficulty following commands. Cranial nerves II through XII intact. Motor and sensory grossly within normal limits. Five out of 5 muscle strength in all muscle groups in upper extremities. Appears to have moderate weakness right lower extremity with complaint of back pain and leg pain with testing. Laboratory Laboratory Tests Test 02/08/17 02/08/17 09:11 09:41 White Blood Count 6.1 Red Blood Count 3.14 Hemoglobin 9.1 Hematocrit 27.0 Mean Corpuscular Volume 85.9 Mean Corpuscular Hemoglobin 28.8 Mean Corpuscular Hemoglobin 33.6 Concent Red Cell Distribution Width 14.4 Platelet Count 341 Mean Platelet Volume 7.1 Neutrophils (%) (Auto) 69.5 Lymphocytes (%) (Auto) 14.3 Monocytes (%) (Auto) 12.4 Eosinophils (%) (Auto) 2.8 Basophils (%) (Auto) 1.0 Neutrophils # (Auto) 4.2 Lymphocytes # (Auto) 0.9 Monocytes # (Auto) 0.7 Eosinophils # (Auto) 0.2 Basophils # (Auto) 0.1 CBC Comment DIFF FINAL Differential Comment Sodium Level 136 Potassium Level 3.9 Chloride Level 102 Carbon Dioxide Level 19.7 Anion Gap 14 Blood Urea Nitrogen 13 Creatinine 1.47 Estimat Glomerular Filtration 47 Rate Random Glucose 88 Calcium Level 8.8 C-Reactive Protein 17.00 Prothrombin Time 13.1 Prothromb Time International 1.2 Ratio Date/Time Procedure Status Source Growth 02/08/17 13:58 Fungal Smear Received Abscess Other Pending 02/08/17 13:58 Fungal Culture Received Abscess Other Pending 02/08/17 12:35 Gram Stain - Final Resulted Abscess Other 02/08/17 12:35 Wound Culture Resulted Abscess Other Pending 02/08/17 12:35 Acid Fast Stain Received Abscess Other Pending 02/08/17 12:35 Mycobacterial Culture Received Abscess Other Pending Result Diagram: 02/08/17 0911 02/08/17 0911 Imaging 02/07/17 MRI lumbar spine images reviewed. The study reveals severe discitis at the L3 4 and L4 5 disc space with significant erosion of the vertebral endplates and adjacent vertebral body. Significant enhancement and abnormal signal intensity within the L3-4-5 vertebral bodies. Positive enhancing primarily ventral epidural mass at the L3 4 level consistent with angulation tissue. Area of wound dehiscence visualized. Assessment and Plan Assessment and Plan Impression: 1. Progression of the patient's previous discitis-osteomyelitis on imaging study with involvement of the L3 4 and L4 5 disc space. Enhancing material at the primarily ventral L3 4 level most consistent with granulation tissue without definite liquefied abscess seen Plan: Findings discussed with patient. Repeat lumbar cultures per CT-guided biopsy. Discussed with radiology last evening. Moderate confusion persists. Infectious disease recommendations noted. Continue therapy efforts. Continue conservative treatment and observation due to lack of definite abscess , mostly mild to moderate canal stenosis, and no definite evidence of cauda equina syndrome Chi Springer MD Feb 08, 2017 18:30
[2017-02-08 20:00] VITALS: BP 131/63; PULSE 108; RESP 18; TEMP 98.7; O2SAT 100
[2017-02-09] VITALS: BP 125/75; PULSE 94; RESP 18; TEMP 97.3; O2SAT 97
[2017-02-09] MEDS: ceFAZolin 2 GM PREMIX 50 ML IV SCH ×3 (00:22→15:09)
[2017-02-09] MEDS ORDERED: MELATONIN 5 MG TAB PO PRN (00:45)
[2017-02-09] MEDS ORDERED: CYCLOBENZAPRINE HCL 10 MG TAB PO PRN (00:45)
[2017-02-09] MEDS: ACETAMINOPHEN/HYDROcodone 325 MG/10 MG TAB PO PRN (00:54)
[2017-02-09] MEDS ORDERED: PILL SPLITTER OTHER PRN (01:00)
[2017-02-09 04:00] VITALS: BP 156/85; PULSE 81; RESP 18; TEMP 97.1; O2SAT 98
[2017-02-09 07:12] LABS: AUTOMATED NEUTROPHIL # 4.4 TH/MM3 (1.8-7.7); BASOPHIL # 0.1 TH/MM3 (0-0.2); BASOPHIL % 0.9 % (0.0-2.0); EOSINOPHIL # 0.1 TH/MM3 (0-0.4); EOSINOPHIL % 1.6 % (0.0-4.0); HEMATOCRIT 25.4 % (39.0-51.0); LYMPH % 13.5 % (9.0-44.0); LYMPHOCYTE # 0.9 TH/MM3 (1.0-4.8); MEAN CELL VOLUME 86.7 FL (80.0-100.0); MEAN CORPUSCULAR HEMOGLOBIN 29.3 PG (27.0-34.0); MEAN CORPUSCULAR HGB CONC 33.8 % (32.0-36.0); MONO % 14.4 % (0.0-8.0); NEUT % 69.6 % (16.0-70.0); PLATELET COUNT 337 TH/MM3 (150-450); RED BLOOD COUNT 2.93 MIL/MM3 (4.50-5.90); RED CELL DISTRIBUTION WIDTH 14.9 % (11.6-17.2); WHITE BLOOD COUNT 6.4 TH/MM3 (4.0-11.0)
[2017-02-09 07:14] LABS: HEMO FLAGS AUTO DIFF
[2017-02-09 07:34] LABS: BICARBONATE 21.6 MEQ/L (21.0-32.0); POTASSIUM 3.8 MEQ/L (3.5-5.1)
[2017-02-09 08:33] LABS: BANDS 8 % (0-6); BASOPHILS 1 % (0-2); EOSINOPHILS 2 % (0-4); MYELOCYTES 2 % (0-0); NEUTROPHIL # MANUAL DIFF 5.2 TH/MM3 (1.8-7.7); POLYS (SEG NEUTROPHILS) 71 % (16-70); WBC DIFF SAMPLE 100
[2017-02-09 08:34] LABS: PLATELET ESTIMATE SMEAR NORMAL (NORMAL); PLATELET MORPHOLOGY NORMAL (NORMAL); SCAN/DIFF FINAL DIFF MANUAL
[2017-02-09 08:35] VITALS: BP 144/81; PULSE 98; RESP 24; TEMP 99.4; O2SAT 99
[2017-02-09] MEDS: SODIUM CHLORIDE 0.9% FLUSH 10 ML FLUSH IV FLUSH SCH ×2 (08:46→21:00)
[2017-02-09] MEDS: SODIUM CHLOR 0.9% 1000 ML INJ 1,000 ML IV SCH (08:46)
[2017-02-09] MEDS: PANTOPRAZOLE SOD 40 MG DELAYED RELEASE TAB PO SCH (08:47)
[2017-02-09] MEDS: POLYETHYLENE GLYCOL 17 GM PKG PO SCH (08:47)
[2017-02-09] MEDS: LORazepam 1 MG TAB PO PRN (08:47)
[2017-02-09] MEDS: THIAMINE HCL 100 MG TAB PO SCH (08:47)
[2017-02-09 12:00] VITALS: BP 162/81; PULSE 86; RESP 24; TEMP 97.8; O2SAT 98
[2017-02-09] MEDS ORDERED: LEVOFLOXACIN 750 MG TAB PO SCH (14:00)
--- NOTE | 2017-02-09 15:44 | HHI.PR ---
Subjective Remarks Follow-up encephalopathy. Agitated today required Ativan and bilateral wrist restraints. Discussed with RN Objective Vitals Vital Signs Date Time Temp Pulse Resp B/P Pulse Ox O2 Delivery O2 Flow Rate FiO2 02/09/17 12:00 97.8 86 24 162/81 98 02/09/17 08:35 99.4 98 24 144/81 99 02/09/17 04:00 97.1 81 18 156/85 98 02/09/17 00:00 97.3 94 18 125/75 97 02/08/17 20:00 98.7 108 18 131/63 100 02/08/17 16:35 97.9 95 20 131/75 100 I/O 02/08/17 02/08/17 02/08/17 02/09/17 02/09/17 02/09/17 07:00 15:00 23:00 07:00 15:00 23:00 Intake Total 750 ml Output Total 400 ml 1000 ml 300 ml Balance 350 ml -1000 ml -300 ml Intake IV Total 750 ml Output Urine Total 400 ml 1000 ml 300 ml Result Diagram: 02/09/17 0638 02/09/17 0635 Imaging Last Impressions Needle Biopsy/Aspiration X-Ray 02/08/17 0000 Signed Impressions: Service Date/Time: Wednesday, February 08, 2017 13:15 - CONCLUSION: Uncomplicated needle biopsy of the L3-4 disc as above. Tan Abrams MD Objective Remarks GENERAL: This is a well-nourished, well-developed patient who is confused SKIN: No rashes, ecchymoses or lesions. Warm and dry. HEAD: Atraumatic. Normocephalic. No temporal or scalp tenderness. EYES: Pupils equal round and reactive. Extraocular motions intact. No scleral icterus. No injection or drainage. ENT: Nose without bleeding. Throat without erythema. Uvula midline. Airway patent. NECK: Trachea midline. No JVD or lymphadenopathy. Supple, nontender, no meningeal signs. CARDIOVASCULAR: Regular rate and rhythm without murmurs, gallops, or rubs. RESPIRATORY: Clear to auscultation. Breath sounds equal bilaterally. No wheezes , rales, or rhonchi. GASTROINTESTINAL: Abdomen soft, non-tender, nondistended. Bowel sounds hypoactive 4. MUSCULOSKELETAL: Extremities without clubbing, cyanosis, or edema. DTR left +3, Right +2. NEUROLOGICAL: Confused. Motor and sensory grossly within normal limits. Normal speech. Procedures Lumbar disc aspiration A/P Problem List: (1) Acute renal failure ICD Code: N17.9 Status: Acute (2) Abscess in epidural space of lumbar spine ICD Code: G06.1 Status: Acute Assessment and Plan This is a 71-year-old male transferred from [place] for L3-4 disc aspirate 2/ abnormal MRI showing edema in the L3, L4 and L5 vertebral bodies suspicious for osteomyelitis. Epidural abscess status post fluid collection drainage but still with elevated inflammatory markers Status post debridement lumbar wound and evacuation of epidural abscess 01/20/[address] Springer Altered mental status, encephalopathy - Patient was on IV cefazolin, Zosyn and by mouth Levaquin. He was switched over to Levaquin by mouth 8 weeks per ID upon admission to [place] rehabilitation - Patient continues to have low grade temperature 99.0 - CT of the brain showed unremarkable and stable CT scan of the brain. #2 stable calcification of posterior right lobe - MRI lumbar spine showed 1. Abnormal examination with edema and enhancement within the L3, L4, and L5 vertebral bodies suspicious for osteomyelitis. This appearance is similar to the prior examination. 2. Abnormal L3 to L4 disc space suspicious for dyspnea tightness along with osteomyelitis. The appearance of this level has worsened in the interim bowel with increased material in the right paracentral location and in the epidural space suspicious of epidural infection. 3. At the L3 to L4 level there is spinal canal stenosis and severe right neural foraminal narrowing. 4. The right paraspinal fluid collection at L3 to L4 at the laminectomy site has decreased in size, as above. Additionally, the fluid collection appears to extend to the superficial overlying open wound. 5. There is abnormal edema and enhancement now appreciated in the right psoas muscle suggesting extension of infection into involving this structure as well. - Status post lumbar disc aspiration studies sent continue Levaquin and IV Ancef - Neurosurgery , ID and PMR consulted - Worsening agitation likely secondary to delirium. Discontinue Ativan and start Haldol. Consult psychiatry Acute kidney injury with urinary retention - Rosa catheter - Monitor urine output - Avoid nephrotoxins - IV fluid 100 mils an hour will be discontinued since indices are improving , monitor for fluid overload Anemia, normocytic normochromic - Possibly secondary to postop anemia - H&H stable 9.5 -->9.3 -->9.6 --> 9.2 EtOH - Continue with thiamine and folic acid - Counseled Hepatitis C - Follow up with GI as an outpatient DVT prop SCD and early ambulation. Start subcutaneous heparin PPI pantoprazole Discharge Planning Back to Harris Felix MD Feb 09, 2017 15:44
[2017-02-09] MEDS ORDERED: HALOPERIDOL LACTATE 5 MG/ML AMP IM PRN (16:00)
--- NOTE | 2017-02-09 16:08 | HHI.NSPN ---
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 He presented to the emergency room with a draining open wound in the lumbar spine and underwent an MRI which revealed lumbar discitis-osteomyelitis with epidural abscess. He underwent surgery for drainage of the epidural abscess on 01/30/17. He was subsequently discharged to [facility] inpatient rehabilitation. He reportedly has become more confused over the past 3-4 days. A follow-up MRI of the lumbar spine has been obtained and the patient transferred back to the hospital for further evaluation. Patient complains of severe low back pain without significant radiation to lower extremities. No significant lower extremity spasm. 02/09: Patient extremely agitated and picking at his gown. He has it covering his groins and thinks it is a pair of pants. He is in soft wrist restraints but has the bed sheet under him on the floor. He has torn his telemetry leads off. He is noted to have tremors to the hands. Patient initially is speaking Barbadian although his [place] language is Italian, he has resided for a number of years in [facility]. (Giles Shipman) Labs, Micro, & Vital Signs Constitutional Vital Signs Date Time Temp Pulse Resp B/P Pulse Ox O2 Delivery O2 Flow Rate FiO2 02/09/17 12:00 97.8 86 24 162/81 98 02/09/17 08:35 99.4 98 24 144/81 99 02/09/17 04:00 97.1 81 18 156/85 98 02/09/17 00:00 97.3 94 18 125/75 97 02/08/17 20:00 98.7 108 18 131/63 100 02/08/17 16:35 97.9 95 20 131/75 100 02/09/17 07:00 Output Total 1300 ml Balance -1300 ml (Giles Shipman) Review of Systems/Exam ROS Resp: Denies any shortness of breath or productive cough. Cardiac: Denies any chest pain, palpitations or irregular heart beat. GI: Denies any abdominal pain, nausea, vomiting or bowel incontinence. Extremities: Denies any arm or leg pain or weakness. Back: Denies any back pain. Neuro: Denies any headache, dizziness, numbness or tingling. Exam HEENT: Normocephalic, atraumatic. Neck: No midline pain with palpation, no step-offs or deformities, no JVD, trachea midline. Resp: CTAB w/o W/R/R, equal excursion, nonlaboured, on RA. CV: S1S2 w/RRR w/o M/G/R, radial & pedal pulses 2+ bilaterally, cap refill < 2 sec, no pedal edema. GI: Abdomen soft, nontender, no palpable masses or organomegaly, positive bowel sounds. : Rosa catheter to BSD. Extremities: Extremities normal. No deformity, discolouration or clubbing noted. Back: TTP along midline lumbar spine. Neuro: Awake & alert but confused. Speech clear but inappropriate. Does follow simple commands. Motor strength symmetrical to all major muscle flexor & extension groups to BUE, weaker to BLE. Sensation grossly intact to light touch to all extremities. Tremor noted to bilateral hands. (Giles Shipman) Medications Current Medications Current Medications Medications (Trade) Dose Ordered Sig/Sukhwinder Route Start Time Stop Time Status Last Admin (NS Flush) 2 ml UNSCH PRN IV FLUSH 02/07/17 23:15 (NS Flush) 2 ml BID IV FLUSH 02/08/17 09:00 02/09/17 08:46 (Narcan Inj) 0.4 mg UNSCH PRN IV 02/07/17 23:15 Ondansetron HCl 4 mg 4 mg Q6H PRN PO 02/07/17 23:45 (Ancef 2 Gm Premix) 50 ml @ 100 mls/hr Q8H IV 02/08/17 00:00 02/09/17 15:09 (Levaquin) 750 mg Q48H PO 02/09/17 14:00 02/09/17 15:09 ([place] 5-325 Mg) 1 tab Q4H PRN PO 02/08/17 08:00 02/08/17 20:51 ([place] 10-325 Mg) 1 tab Q6H PRN PO 02/08/17 08:00 02/09/17 00:54 (Protonix) 40 mg DAILY PO 02/08/17 09:00 02/09/17 08:47 (Miralax) 17 gm DAILY PO 02/08/17 09:00 02/09/17 08:47 (Vitamin B1) 100 mg DAILY PO 02/08/17 09:00 02/09/17 08:47 (Melatonin) 5 mg HS PRN PO 02/09/17 00:45 (Pill Splitter) 1 ea UNSCH PRN OTHER 02/09/17 01:00 (Haldol Inj) 2 mg Q8H PRN IM 02/09/17 16:00 (Heparin Inj) 5,000 units Q12HR SQ 02/09/17 21:00 (Giles Shipman) Medical Decision Making MDM Remarks Impression: Progression of the patient's previous discitis-osteomyelitis on imaging study with involvement of the L3 4 and L4 5 disc space. Enhancing material at the primarily ventral L3 4 level most consistent with granulation tissue without definite liquefied abscess seen Due to lack of definite abscess, mostly mild to moderate canal stenosis, and no definite evidence of cauda equina syndrome Worsening confusion & agitation (Giels Shipman) Plan Plan Remarks Primary mgmt per Hospitalist Abx mgmt per Infectious Disease PT & OT (Giles Shipman) Attending Statement I have personally seen and examined the patient on the date of this note. Pertinent documentation and study results have been reviewed by the undersigned. I have personally developed the treatment plan and performed medical decision making. Agree with findings, exam, and treatment plan as noted above. Neurologic exam stable Continuing antibiotics per infectious disease (Chi Sprniger MD) Giles Shipman Feb 09, 2017 16:08 Chi Springer MD Mar 30, 2017 17:17
[2017-02-09] MEDS ORDERED: ENALAPRILAT 1.25 MG/ML VIAL IV PRN (17:00)
[2017-02-09] MEDS ORDERED: cloNIDine HCL 0.1 MG TAB PO PRN (17:00)
[2017-02-09 17:13] VITALS: BP 163/91; PULSE 96; RESP 20; TEMP 98.9; O2SAT 95
[2017-02-09 20:00] VITALS: BP 156/76; PULSE 90; RESP 18; TEMP 98.9; O2SAT 99
[2017-02-09] MEDS: HEPARIN SODIUM - SQ 10,000 UNITS/ML VIAL SQ SCH ×2 (21:00→21:35)
[2017-02-10] MEDS: ceFAZolin 2 GM PREMIX 50 ML IV SCH ×2 (00:23→09:22)
[2017-02-10 01:14] VITALS: BP 158/73; PULSE 78; RESP 24; TEMP 99; O2SAT 96
[2017-02-10] MEDS: ACETAMINOPHEN/HYDROcodone 325 MG/10 MG TAB PO PRN ×2 (03:14→12:15)
[2017-02-10 06:16] VITALS: BP 155/84; PULSE 79; RESP 24; TEMP 97; O2SAT 98
[2017-02-10 08:10] VITALS: BP 153/77; PULSE 73; RESP 16; TEMP 96.9; O2SAT 100
[2017-02-10] MEDS: SODIUM CHLORIDE 0.9% FLUSH 10 ML FLUSH IV FLUSH SCH (09:00)
[2017-02-10] MEDS: POLYETHYLENE GLYCOL 17 GM PKG PO SCH (09:21)
[2017-02-10] MEDS: THIAMINE HCL 100 MG TAB PO SCH (09:22)
[2017-02-10] MEDS: PANTOPRAZOLE SOD 40 MG DELAYED RELEASE TAB PO SCH (09:22)
[2017-02-10] MEDS: HEPARIN SODIUM - SQ 10,000 UNITS/ML VIAL SQ SCH (09:22)
--- NOTE | 2017-02-10 10:37 | HHI.NSPN ---
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 He presented to the emergency room with a draining open wound in the lumbar spine and underwent an MRI which revealed lumbar discitis-osteomyelitis with epidural abscess. He underwent surgery for drainage of the epidural abscess on 01/30/17. He was subsequently discharged to [facility] inpatient rehabilitation. He reportedly has become more confused over the past 3-4 days. A follow-up MRI of the lumbar spine has been obtained and the patient transferred back to the hospital for further evaluation. Patient complains of severe low back pain without significant radiation to lower extremities. No significant lower extremity spasm. 02/09: Patient extremely agitated and picking at his gown. He has it covering his groins and thinks it is a pair of pants. He is in soft wrist restraints but has the bed sheet under him on the floor. He has torn his telemetry leads off. He is noted to have tremors to the hands. Patient initially is speaking Mauritian although his [place] language is Azeri, he has resided for a number of years in [facility]. 02/10: Patient alert and calm. Daughter at bedside and restraints off. ST working with him. Slight tremor noted to right lower leg & foot but none to the hands. (Giles Shipman) Labs, Micro, & Vital Signs Results Date Time Temp Pulse Resp B/P Pulse Ox O2 Delivery O2 Flow Rate FiO2 02/10/17 08:10 96.9 73 16 153/77 100 02/10/17 06:16 97.0 79 24 155/84 98 02/10/17 04:35 18 02/10/17 01:14 99.0 78 24 158/73 96 02/09/17 20:00 98.9 90 18 156/76 99 02/09/17 17:13 98.9 96 20 163/91 95 02/09/17 12:00 97.8 86 24 162/81 98 02/10/17 07:00 Intake Total 360 ml Output Total 925 ml Balance -565 ml Constitutional Vital Signs Date Time Temp Pulse Resp B/P Pulse Ox O2 Delivery O2 Flow Rate FiO2 02/10/17 08:10 96.9 73 16 153/77 100 02/10/17 06:16 97.0 79 24 155/84 98 02/10/17 04:35 18 02/10/17 01:14 99.0 78 24 158/73 96 02/09/17 20:00 98.9 90 18 156/76 99 02/09/17 17:13 98.9 96 20 163/91 95 02/09/17 12:00 97.8 86 24 162/81 98 02/10/17 07:00 Intake Total 360 ml Output Total 925 ml Balance -565 ml (Giles Shipman) Review of Systems/Exam ROS Resp: Denies any shortness of breath or productive cough. Cardiac: Denies any chest pain, palpitations or irregular heart beat. GI: Denies any abdominal pain, nausea, vomiting or bowel incontinence. Extremities: Weakness to the right leg due to not using it, denies any arm or leg pain. Back: Having back pain today. Neuro: Weakness to the right leg, denies any headache, dizziness, numbness or tingling. Exam HEENT: Normocephalic, atraumatic. Neck: No midline pain with palpation, no step-offs or deformities, no JVD, trachea midline. Resp: CTAB w/o W/R/R, equal excursion, nonlaboured, on RA. CV: S1S2 w/RRR w/o M/G/R, radial & pedal pulses 2+ bilaterally, cap refill < 2 sec, no pedal edema. GI: Abdomen soft, nontender, no palpable masses or organomegaly, positive bowel sounds. : Rosa catheter to BSD. Extremities: Extremities normal. No deformity, discolouration or clubbing noted. Back: TTP along midline lumbar spine. Incision open to granulate in, no evident purulent drainage, erythema or streaking noted. Serous drainage noted in wound and on dressing. Neuro: AAOx3. Speech clear & appropriate. Follows simple commands. Motor strength symmetrical to all major muscle flexor & extension groups to BUE & LLE but weaker to RLE. Sensation grossly intact to light touch to all extremities. Tremor noted right lower leg & foot. (Giles Shipman) Medications Current Medications Current Medications Medications (Trade) Dose Ordered Sig/Sukhwinder Route Start Time Stop Time Status Last Admin (NS Flush) 2 ml UNSCH PRN IV FLUSH 02/07/17 23:15 (NS Flush) 2 ml BID IV FLUSH 02/08/17 09:00 02/10/17 09:00 (Narcan Inj) 0.4 mg UNSCH PRN IV 02/07/17 23:15 Ondansetron HCl 4 mg 4 mg Q6H PRN PO 02/07/17 23:45 (Ancef 2 Gm Premix) 50 ml @ 100 mls/hr Q8H IV 02/08/17 00:00 02/10/17 09:22 (Levaquin) 750 mg Q48H PO 02/09/17 14:00 02/09/17 15:09 ([place] 5-325 Mg) 1 tab Q4H PRN PO 02/08/17 08:00 02/08/17 20:51 ([place] 10-325 Mg) 1 tab Q6H PRN PO 02/08/17 08:00 02/10/17 03:14 (Protonix) 40 mg DAILY PO 02/08/17 09:00 02/10/17 09:22 (Miralax) 17 gm DAILY PO 02/08/17 09:00 02/10/17 09:21 (Vitamin B1) 100 mg DAILY PO 02/08/17 09:00 02/10/17 09:22 (Melatonin) 5 mg HS PRN PO 02/09/17 00:45 (Pill Splitter) 1 ea UNSCH PRN OTHER 02/09/17 01:00 (Haldol Inj) 2 mg Q8H PRN IM 02/09/17 16:00 02/09/17 17:12 (Heparin Inj) 5,000 units Q12HR SQ 02/09/17 21:00 02/10/17 09:22 (Vasotec Inj) 1.25 mg Q6H PRN IV 02/09/17 17:00 (Catapres) 0.1 mg Q6H PRN PO 02/09/17 17:00 (Giles Shipman) Medical Decision Making MDM Remarks Impression: Progression of the patient's previous discitis-osteomyelitis on imaging study with involvement of the L3 4 and L4 5 disc space. S/P L3-4 disc aspiration on 02/08 Mild to moderate canal stenosis No definite evidence of cauda equina syndrome Improving confusion & agitation (Giles Shipman) Plan Plan Remarks Primary mgmt per Hospitalist Abx mgmt per Infectious Disease PT & OT (Giles Shipman) Attending Statement I have personally seen and examined the patient on the date of this note. Pertinent documentation and study results have been reviewed by the undersigned. I have personally developed the treatment plan and performed medical decision making. Agree with findings, exam, and treatment plan as noted above. Neurologic exam stable Continuing antibiotics per infectious disease (Chi Springer MD) Giles Shipman Feb 10, 2017 10:37 Chi Springer MD Mar 30, 2017 17:20
--- NOTE | 2017-02-10 12:21 | PD.CONS ---
[facility] Service Rehabilitation Medicine Consult Requested By Dr. Ibrahim Reason for Consult Comprehensive rehabilitation evaluation. Primary Care Physician Unknown History of Present Illness Fazal Judge is a 71-year-old right-hand dominant male who was admitted [facility] 01/18/17 with change of mental status. He had undergone her spine surgery in [facility] proximally 14 days prior to admission. CT the brain was negative. CT of the lumbar spine showed concern for L2-L3 discitis and phlegmon. He underwent lumbar wound debridement and evacuation of lumbar epidural 01/20/17. He was subsequently transferred for inpatient rehabilitation at [facility] for inpatient rehabilitation. He was noted to have mental status changes and MRI of the lumbar spine showed 1. Abnormal examination with edema and enhancement within the L3, L4, and L5 vertebral bodies suspicious for osteomyelitis. This appearance is similar to the prior examination. 2. Abnormal L3 to L4 disc space suspicious for dyspnea tightness along with osteomyelitis. The appearance of this level has worsened in the interim with increased material in the right paracentral location and in the epidural space suspicious of epidural infection. 3. At the L3 to L4 level there is spinal canal stenosis and severe right neural foraminal narrowing. 4. The right paraspinal fluid collection at L3 to L4 at the laminectomy site has decreased in size, as above. Additionally, the fluid collection appears to extend to the superficial overlying open wound. 5. There is abnormal edema and enhancement now appreciated in the right psoas muscle suggesting extension of infection into involving this structure as well. He was readmitted to [facility] 02/07/17 and underwent needle biopsy of L3- L4 disc space. Cultures have been negative for 48 hours. He's been followed by infectious disease and is to continue with Levaquin and cefazolin. He was seen by psychiatry for delirium Review of Systems Constitutional: COMPLAINS OF: Fatigue Eyes: DENIES: Diplopia Ears, nose, mouth, throat: DENIES: Hearing loss Respiratory: DENIES: Shortness of breath Cardiovascular: DENIES: Chest pain Gastrointestinal: DENIES: Abdominal pain Musculoskeletal: DENIES: Back pain Integumentary: DENIES: Rash Immunologic/allergic: DENIES: Urticaria Neurologic: DENIES: Headache, Localized weakness Psychiatric: COMPLAINS OF: Confusion Past Family Social History Allergies: Coded Allergies: No Known Allergies (Unverified , 01/18/17) Past Medical History Claustrophobia Anxiety Past Surgical History As above Current Medications Current Medications Medications (Trade) Dose Ordered Sig/Sukhwinder Route Start Time Stop Time Status Last Admin (NS Flush) 2 ml UNSCH PRN IV FLUSH 02/07/17 23:15 (NS Flush) 2 ml BID IV FLUSH 02/08/17 09:00 02/10/17 09:00 (Narcan Inj) 0.4 mg UNSCH PRN IV 02/07/17 23:15 Ondansetron HCl 4 mg 4 mg Q6H PRN PO 02/07/17 23:45 (Ancef 2 Gm Premix) 50 ml @ 100 mls/hr Q8H IV 02/08/17 00:00 02/10/17 09:22 (Levaquin) 750 mg Q48H PO 02/09/17 14:00 02/09/17 15:09 ([place] 5-325 Mg) 1 tab Q4H PRN PO 02/08/17 08:00 02/08/17 20:51 ([place] 10-325 Mg) 1 tab Q6H PRN PO 02/08/17 08:00 02/10/17 12:15 (Protonix) 40 mg DAILY PO 02/08/17 09:00 02/10/17 09:22 (Miralax) 17 gm DAILY PO 02/08/17 09:00 02/10/17 09:21 (Vitamin B1) 100 mg DAILY PO 02/08/17 09:00 02/10/17 09:22 (Melatonin) 5 mg HS PRN PO 02/09/17 00:45 (Pill Splitter) 1 ea UNSCH PRN OTHER 02/09/17 01:00 (Haldol Inj) 2 mg Q8H PRN IM 02/09/17 16:00 02/09/17 17:12 (Heparin Inj) 5,000 units Q12HR SQ 02/09/17 21:00 02/10/17 09:22 (Vasotec Inj) 1.25 mg Q6H PRN IV 02/09/17 17:00 (Catapres) 0.1 mg Q6H PRN PO 02/09/17 17:00 Family History Noncontributory Social History Prior to admission patient lived in [facility] Exam I&O / VS 02/09/17 02/09/17 02/10/17 15:00 23:00 07:00 Intake Total 240 ml 120 ml Output Total 475 ml 450 ml Balance -235 ml -330 ml Intake Oral 240 ml 120 ml Output Urine Total 475 ml 450 ml # Bowel Movements 1 0 Vital Signs Date Time Temp Pulse Resp B/P Pulse Ox O2 Delivery O2 Flow Rate FiO2 02/10/17 08:10 96.9 73 16 153/77 100 02/10/17 06:16 97.0 79 24 155/84 98 02/10/17 04:35 18 02/10/17 01:14 99.0 78 24 158/73 96 02/09/17 20:00 98.9 90 18 156/76 99 02/09/17 17:13 98.9 96 20 163/91 95 General: No acute distress Respiratory: Lungs CTA, Non-labored respirations, BS equal Gastrointestinal: Positive Bowel Sounds, Non-Distended, Non-Tender Cardiovascular: Normal rate, Regular Rhythm Skin: Other (No rash noted) Musculoskeletal: Tenderness (No calf tenderness), Swelling (None in distal LE) Psychiatric: Cooperative (No agitation noted; confused but able to be re- directed) Orientation: oriented to Self, oriented to Time, oriented to Situation, disoriented to Place Neurologic: Pupils (PERRLA), EOM (Intact), Speech (Clear but confused), Other ( Bilateral UE and LE 4+/5) Sensory Intact to light touch throughout DTRs: Normal Clonus: Negative Assessment and Plan Diagnosis: (1) Osteomyelitis of lumbar spine (2) Impaired mobility and activities of daily living Assessment 1. Epidural abscess status post needle biopsy of L3-L4 disc now with cultures negative at 48 hours 2. Impaired mobility and ADLs 3. History of anxiety 4. Delirium 5. Acute kidney injury 6. History of severe sepsis Plan 1. Continue to mobilize with physical therapy. Patient is now moderate assistance for transfers sitting. Continue to use lumbar brace prior to sitting 2. Occupational therapy for ADLs 3. Anticipate the patient will require ongoing inpatient rehabilitation and case management is addressing readmission to rehabilitation 4. Will follow while hospitalized and at discharge as appropriate Nikki Ledezma MD Feb 10, 2017 12:21
--- NOTE | 2017-02-10 12:27 | HHI.PR ---
Subjective Remarks Follow-up discitis and encephalopathy. Continues to have lower back pain. Improved confusion seen with daughter. Discussed with rehabilitation Chandan, pillowcase cleaner and RN, stable for discharge to rehabilitation already cleared by neurosurgery and ID Objective Vitals Vital Signs Date Time Temp Pulse Resp B/P Pulse Ox O2 Delivery O2 Flow Rate FiO2 02/10/17 08:10 96.9 73 16 153/77 100 02/10/17 06:16 97.0 79 24 155/84 98 02/10/17 04:35 18 02/10/17 01:14 99.0 78 24 158/73 96 02/09/17 20:00 98.9 90 18 156/76 99 02/09/17 17:13 98.9 96 20 163/91 95 I/O 02/09/17 02/09/17 02/09/17 02/10/17 02/10/17 02/10/17 07:00 15:00 23:00 07:00 15:00 23:00 Intake Total 240 ml 120 ml Output Total 300 ml 475 ml 450 ml Balance -300 ml -235 ml -330 ml Intake Oral 240 ml 120 ml Output Urine Total 300 ml 475 ml 450 ml # Bowel Movements 1 0 Result Diagram: 02/09/17 0638 02/09/17 0635 Imaging Last Impressions Needle Biopsy/Aspiration X-Ray 02/08/17 0000 Signed Impressions: Service Date/Time: Wednesday, February 08, 2017 13:15 - CONCLUSION: Uncomplicated needle biopsy of the L3-4 disc as above. Tan Abrams MD Objective Remarks GENERAL: This is a well-nourished, well-developed patient SKIN: No rashes, ecchymoses or lesions. Warm and dry. HEAD: Atraumatic. Normocephalic. No temporal or scalp tenderness. EYES: Pupils equal round and reactive. Extraocular motions intact. No scleral icterus. No injection or drainage. ENT: Nose without bleeding. Throat without erythema. Uvula midline. Airway patent. NECK: Trachea midline. No JVD or lymphadenopathy. Supple, nontender, no meningeal signs. CARDIOVASCULAR: Regular rate and rhythm without murmurs, gallops, or rubs. RESPIRATORY: Clear to auscultation. Breath sounds equal bilaterally. No wheezes , rales, or rhonchi. GASTROINTESTINAL: Abdomen soft, non-tender, nondistended. Bowel sounds normal active 4. MUSCULOSKELETAL: Extremities without clubbing, cyanosis, or edema. DTR left +3, Right +2. NEUROLOGICAL: Oriented. Motor and sensory grossly within normal limits. Normal speech. Procedures Lumbar disc aspiration A/P Problem List: (1) Acute renal failure ICD Code: N17.9 Status: Acute (2) Abscess in epidural space of lumbar spine ICD Code: G06.1 Status: Acute Assessment and Plan This is a 71-year-old male transferred from [place] for L3-4 disc aspirate 2/ abnormal MRI showing edema in the L3, L4 and L5 vertebral bodies suspicious for osteomyelitis. Epidural abscess status post fluid collection drainage but still with elevated inflammatory markers Status post debridement lumbar wound and evacuation of epidural abscess 01/20/[address] Springer Altered mental status, encephalopathy - Patient was on IV cefazolin, Zosyn and by mouth Levaquin. He was switched over to Levaquin by mouth 8 weeks per ID upon admission to [place] rehabilitation - Patient continues to have low grade temperature 99.0 - CT of the brain showed unremarkable and stable CT scan of the brain. #2 stable calcification of posterior right lobe - MRI lumbar spine showed 1. Abnormal examination with edema and enhancement within the L3, L4, and L5 vertebral bodies suspicious for osteomyelitis. This appearance is similar to the prior examination. 2. Abnormal L3 to L4 disc space suspicious for dyspnea tightness along with osteomyelitis. The appearance of this level has worsened in the interim bowel with increased material in the right paracentral location and in the epidural space suspicious of epidural infection. 3. At the L3 to L4 level there is spinal canal stenosis and severe right neural foraminal narrowing. 4. The right paraspinal fluid collection at L3 to L4 at the laminectomy site has decreased in size, as above. Additionally, the fluid collection appears to extend to the superficial overlying open wound. 5. There is abnormal edema and enhancement now appreciated in the right psoas muscle suggesting extension of infection into involving this structure as well. - Status post lumbar disc aspiration studies negative to date for 48 hours continue Levaquin and IV Ancef - Neurosurgery , ID and PMR consulted -Delirium much improved. Discontinued Ativan and continue Haldol. Consulted psychiatry Acute kidney injury with urinary retention - Rosa catheter - Monitor urine output - Avoid nephrotoxins - Improving discontinue IV fluid Anemia, normocytic normochromic - Possibly secondary to postop anemia - H&H stable 9.5 -->9.3 -->9.6 --> 9.2 EtOH - Continue with thiamine and folic acid - Counseled Hepatitis C - Follow up with GI as an outpatient DVT prop SCD and early ambulation. Continue heparin PPI pantoprazole Discharge Planning Back to [facility] Felix MD Feb 10, 2017 12:27
--- NOTE | 2017-02-10 13:07 | HHI.PR ---
Addendum to Inpatient Note Additional Information afebrile clx negative @ 48 hrs OK to go back to [facility] to cont cefazoline, levaquine per previous recommendations Bindu Reynolds MD Feb 10, 2017 13:07
[2017-02-10] MEDS ORDERED: LEVA750T PO (14:10)
--- NOTE | 2017-02-10 14:11 | HHI.DCPOC ---
Discharge Care Plan Diagnosis: (1) Altered mental state (2) Abscess in epidural space of lumbar spine (3) Acute renal failure Your Health Problems Are: Difficulty with ADL Exercise Tolerance Goals to Promote Your Health * To prevent worsening of your condition and complications * To maintain your health at the optimal level Directions to Meet Your Goals Take your medications as prescribed Follow your dietary instruction Follow activity as directed Keep your appointments as scheduled Take your immunizations and boosters as scheduled If your symptoms worsen call your PCP, if no PCP go to Urgent Care Center or Emergency Room Smoking is Dangerous to Your Health. Avoid second hand smoke Call the 24-hour hour crisis hotline for domestic abuse at Harris Ibrahim MD Feb 10, 2017 14:11
--- NOTE | 2017-02-10 14:39 | PD.HHIRHP ---
History of Present Illness Chief Complaint I have pain in my legs Records reviewed: Inpatient Records 2+falls/ fall w/inj in last yr: No HPI Mr. Judge is a 71 year old male with pmhx of anxiety, claustrophobia, and alcohol abuse that lives in [facility]. 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 He had a recent lumbar back surgery in [facility] because of severe low back pain. He developed altered mental status and came to the [facility] where his daughter lives. He had some etoh on the airplane and arrived with altered mental status. He initially presented to [facility] on 01/18/17. Found to be have sepsis related to an L2-L3 epidural abcess. He was seen by ID Dr. Reynolds and started on cefazolin IV, Zosyn and levaquin. He went to IR for drainage of abcess and cultures grew MSSA and PSA. Neurosurgery was consulted and he is s/p evacuation of epidural abcess on 01/20/[address] Springer. He had transaminitis and HCV PCR positive with no viral load. Refused liver biopsy, but was seen by GI Dr. Cary.He was then admitted to [place] for rehab on 01/25/17. He developed increased confusion, hallucinations, and delerium. CT brain was negative. MRI with and without contrast on 02/07/17showed L3,L4,L5 Edema suggesting osteomyelitis, L3-L4 discitis, severe right neural foraminal narrowing, paraspinal fluid collection, extension into R psoas muscle. ID and neurosurgery were re-consulted and he was transferred back to [facility] 02/08/17. He underwent needle aspiration of collection and was restarted on cefazolin IV and po levaquin continued. So far, blood cultures, wound culture,and AFB negative. Functional Status: prior- was primarily taking care of self at home, independent in ADLs, self management of care, ambulating long distances without assistive device. current- moderate assist with bed mobility, sit to supine mod/max, sit to stand - unable, unable to ambulate. The patient has been re- admitted to [facility] for inpatient rehabilitation for comprehensive rehabilitation management on 02/10/17. Today, he is awake and alert and confused. He is oriented to person, time, but not place. Does not seem to be hallucinating at this time. He does c/o of pain that is shooting down both legs and low back pain that is moderate, worse with movement and is improved somewhat with pain medication. This pain seems about the same as when he was previously at [facility]. His daughter is present and says his mental status is improving over the past 24 hours or so. He admits to poor appetite and encouraged him to eat as he was not interested in lunch and his breakfast tray looked untouched. He denies any fevers, chills, nausea, vomiting , chest pain, dyspnea, headaches, or blurry/double vision. Past Surgical/Medical History Past Surgery: No (spinal surgery) Major surgery in last 100 days: Yes (evacuation of lumbar epidural abcess) Hx Anesthesia Reactions: No Hx Orthopedic Surgery: No Hx Cardiac Surgery: No Hx Chest Surgery: No Hx Abdominal Surgery: No Hx Genitourinary Surgery: No Hx Endocrine Surgery: No Hx Eye Surgery: No Hx Ear Surgery: No Hx Oral Surgery: No History of Transplant: No Hx of Neuro Prob: No Hx Seizures: No Cephalgia (Headaches): No Hx Migraines: No Hx Head Injury: No Hx Falls: No Hx Cerebrovascular Accident: No Hx Dizziness: No Hx Numbness: No Hx of Musculoskeletal Pro: Yes Hx Arthritis: No Hx Osteoporosis: No Hx Neck Problems: No Hx Back Problem: Yes Hx of Cardiovascular Prob: No Hypertension (High Blood Press: No Hx Clotting Problems: No Hx Chest Pain: No Hx Lightheadedness: No Hx Congestive Heart Failure: No Syncope (Fainting): No Hx of Respiratory Problem: No Hx Asthma: No Hx Wheezing: No Hx Chronic Obstructive Pulmona: No Hx Dyspnea: No Hx Snoring: No Hx Emphysema: No Hx Sleep Apnea: No Hx of GI Problems: Yes Hx Heartburn: No Hx Gastroesophageal Reflux: No Hx Hiatal Hernia: No Hx Ulcer: No Hx Liver Disease: Yes (elevated liver enzymes) Hx Gallbladder Disease: No Hx Inflammatory Bowel Disease: No Hx of Problems: Yes Hx Renal Disease: No Hx Renal Failure: Yes (acute renal failure) Hx Kidney Transplant: No Hx Kidney Stones: No Hx Nephrectomy: No Hx Infection: Yes (UTI) Hx Prostate Problems: Yes (BPH, nocturia, slow stream) Hx Genital Problems: No Hx of Immuno Disor: No Hx Autoimmune Disease: No Hx of Endocrine Problems: No Hx Thyroid Disease: No Hx Diabetes: No Hx of Eye Probl: Yes (myopia) Hx of Hearing or Ear Problems: No Hx Dental Problems: No Hx Psychiatric Problems: Yes Hx Anxiety: Yes (anxiety, claustrophobia) Hx Depression: No Hx Blood Dyscrasias: No Hx Sickle Cell Disease: No Hx Thrombocytopenia: No Hx Hemophilia: No Hx of Heparin Induced Thr: No Hx of MDRO: No Hx of MRSA: No Hx of VRE: No Hx of CDIFF: No Hx of Tuberculosis: No Hx Chicken Pox: No Hx Measles: Yes Hx of Body/Medical Devices: No Hx Pacemaker: No Hx Internal Defibrillator: No Hx Joint Replacement: No Insulin Pump: No Hx Arteriovenous Shunt: No Hx Dental Implants: No Hx Eye Prosthesis: No Genitourinary Device: No Genitourinary Ostomy: No Gastrointestinal Ostomy: No Blood Transfusion History Will receive Blood /Blood prod: Yes Hx Blood Transfusions: No Hx Blood Transfusion Reaction: No Allergies: Coded Allergies: No Known Allergies (Unverified , 01/18/17) Active Medications Active Medications Clonidine (Catapres) 0.1 mg Q6H PRN PO; Start 02/09/17 at 17:00 Enalaprilat (Vasotec Inj) 1.25 mg Q6H PRN IV; Start 02/09/17 at 17:00 Haloperidol Lactate (Haldol Inj) 2 mg Q8H PRN IM Last administered on 17:12; Admin Dose 2 MG; Start 02/09/17 at 16:00 Heparin Sodium (Porcine) (Heparin Inj) 5,000 units Q12HR SQ Last administered on 02/10/17 09:22; Admin Dose 5,000 UNITS; Start 02/09/17 at 21:00 Levofloxacin (Levaquin) 750 mg Q48H PO Last administered on 02/09/17 15:09; Admin Dose 750 MG; Start 02/09/17 at 14:00 Family/Social History Family History Mother of colon cancer, father of lung cancer. One brother alive and well. 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) Pre-Hospital Living Setting: Home (daughters home 1 story) Review of Systems ROS Limitations: Altered Mental Status, Poor Historian Constitutional: Complain of: Change in appetite, Pain (low back radiates to legs), Denies: Chills, Diaphoretic episodes, Dizziness, Fatigue, Fever Endocrine: Denies: Polyphagia, Polyuria Eyes: Denies: Blurred vision, Diplopia, Eye inflamation, Vision loss ENMT: Denies: Tinnitus, Vertigo Respiratory: Denies: Apnea, Cough, Shortness of breath, Sputum production, Wheezing Cardiovascular: Denies: Chest pain, Claudication, Dyspnea of Exertion, Orthopnea, Syncope Gastrointestinal: Denies: Abdominal pain, Black stools, Constipation, Diarrhea , Nausea, Vomiting Genitourinary: Denies: Dysuria, Hematuria, Nocturia, Urinary frequency Integumentary: Denies: Pruritus Hematologic/lymphatic: Denies: Bruising Musculoskeletal: COMPLAINS OF: Muscle aches, Stiffness, Back pain, DENIES: Joint pain Neurologic: Denies: Falls, Difficulty swallowing, Headache, Localized weakness , Paresthesias, Poor balance, Seizures, Speech problems Psychiatric: Complains of: Anxiety, Confusion, Denies: Agitations, Delusions, Depression, Hallucinations Exam I&O / VS 02/09/17 02/09/17 02/10/17 15:00 23:00 07:00 Intake Total 240 ml 120 ml Output Total 475 ml 450 ml Balance -235 ml -330 ml Intake Oral 240 ml 120 ml Output Urine Total 475 ml 450 ml # Bowel Movements 1 0 Vital Signs Date Time Temp Pulse Resp B/P Pulse Ox O2 Delivery O2 Flow Rate FiO2 02/10/17 08:10 96.9 73 16 153/77 100 02/10/17 06:16 97.0 79 24 155/84 98 02/10/17 04:35 18 02/10/17 01:14 99.0 78 24 158/73 96 02/09/17 20:00 98.9 90 18 156/76 99 02/09/17 17:13 98.9 96 20 163/91 95 General: No acute distress HEENT sclera white, perrla, no oral exudate Respiratory: Lungs CTA, Non-labored respirations, BS equal, Symmetrical expansion Gastrointestinal: Positive Bowel Sounds, Non-Distended, Non-Tender Cardiovascular: Normal rate, No murmur, No gallop, Intact pulses, Normal peripheral perfusion, Regular Rhythm Skin: Wound(s) (erythmea slowly blanchable friction to buttocks, lumbar wound - no drainage, clean, no iris wound edema, pink tissue in wound bed) Musculoskeletal: ROM (within functional limits) Psychiatric: Cooperative, Appropriate mood & affect, Restless Pressure Ulcer Present on Adm: No Number of Pressure Ulcers: 0 Orientation: oriented to Self, oriented to Time, oriented to Situation, disoriented to Place Neurologic: Cranial Nerves (2-12 grossly intact), Pupils (perrla) Motor: Right Upper Extremity (network engineer administrator 4/5, bicep 4/5, tricep 4/5), Left Upper Extremity (network engineer administrator 4/5, bicep 4/5, tricep 4/5), Right Lower Extremity (ankle 4/5, knee 4/5, hip 4/5), Left Lower Extremity (ankle 4/5, knee 4/5, hip 4/5) Sensory intact to light touch throughout Clonus: Negative Active Cancer(trtmnt w/in 6 m): 0 Paralysis/Paresis/Immob LE: 0 Bedridden>3 days(surgery<4wks): 1 Local tenderness of deep veins: 0 Entire leg swollen: 0 Unilat calf swelling of > 2 c: 0 Unilateral pitting edema: 0 Collateral Superficial Veins: 0 Alternative diagnosis as/more: 0 Total Points: 1 (1-2 points: Moderate Risk(17%)) Laboratory Results Microbiology 02/08/17 Fungal Smear, Received Pending 02/08/17 Fungal Culture, Received Pending 02/08/17 Gram Stain - Final, Resulted 02/08/17 Wound Culture - Preliminary, Resulted NO GROWTH IN 48 HOURS. 02/08/17 Fungal Smear - Final, Resulted NO FUNGAL ELEMENTS SEEN. 02/08/17 Fungal Culture, Resulted Pending 02/08/17 Acid Fast Stain - Final, Resulted NO ACID FAST BACILLI SEEN 02/08/17 Mycobacterial Culture, Resulted Pending Assessment/Plan Anticipated Discharge Date: February 24, 2017 Referring Provider: Harris Ibrahim MD Diagnosis/Problem List: (1) Osteomyelitis of lumbar spine Assessment & Plan: A/P Assessment & Plan: 1. Dx Acute osteomyelitis L3-L4-L5 with discitis, epidural abscess and extension of infection into right psoas muscle The patient will require physician oversight and coordination of the following disciplines: 24 hour rehabilitation nursing for management of bowel, bladder, skin integrity, medication management, safety measures, and preventing risk factors and complications. Patient will require a minimum of 3 hours of therapy a day for 5-7 days a week throughout the hospitalization, including at least the followin-2 hours of physical therapy, and/or 1-2 hours of occupational therapy, and 1 hour for the following services if necessary: speech-language pathology, neuropsychology, and multidisciplinary groups. These disciplines will be needed in order to improve the patient's impairments in mobility, transfers, activities of daily living, swallowing, cognition, and evaluation of durable medical equipment if needed at discharge. Case management will be consulted to assist with discharge planning and family coping strategies. Impairments: low back pain, decreased balance, decreased mobility, altered mental status, infection, lumbar wound, Precautions: falls, safety Weight Bearing: Full weight bearing Diet: Regular diet : Rosa catheter GI: Bowel regimen, protonix Pain: Clover prn pain DVT: Heparin 5000 units sq q12, SCDs in bed, mobilize with therapy Skin: Excoriation/friction to buttocks with slow to jose enrique erythema Labs: CBC/CMP/U/A/folate level Supplements: Thiamine 100 mg po qd Prognosis: Good Estimated LOS 14 days Status: Acute Status: Acute (2) Altered mental status, unspecified Assessment & Plan: Etiology? Infection, underlying neurocognitive disorder, etoh abuse? Consult psychology, consult neuropsychology to follow. CBC,CMP, u/a on admission. Follow vitals and continue cafazolin and levaquin per ID. Status: Acute (3) Epidural abscess, L2-L5 Assessment & Plan: S/P needle aspiration with negative cultures at 48 hours. Continue cefazolin and levaquin per ID. Monitor mental status, vitals signs and follow labs and clinically. Will need stop date for antibiotics from ID. Status: Acute (4) Psoas abscess, right Assessment & Plan: S/P needle aspiration with negative cultures at 48 hours. Continue cefazolin and levaquin per ID. Monitor mental status, vitals signs and follow labs and clinically. Will need stop date for antibiotics from ID. Status: Acute (5) Discitis of lumbar region Assessment & Plan: S/P needle aspiration with negative cultures at 48 hours. Continue cefazolin and levaquin per ID. Monitor mental status, vitals signs and follow labs and clinically. Will need stop date for antibiotics from ID. Status: Acute (6) Open wound of lumbar region with complication Assessment & Plan: Wound is clean and healing. Iris-wound edema has resolved. Continue dressing changes/wound care. Monitor for signs of infection. Status: Acute Encounter type: subsequent encounter Qualified Code: S31.000D - Open wound of lumbar region with complication, subsequent encounter (7) Impaired mobility and activities of daily living Assessment & Plan: Physical and occupational therapy have been consulted to evaluate and treat. Status: Acute (8) Low back pain potentially associated with spinal stenosis Assessment & Plan: Has pain with some radiation to bilateral lower extremities. No numbness or weakness. Has severe lumbar stenosis on MRI. Neurosurgery was seeing patient. Monitor pain, continue pain medication. Mobilize with therapy. Status: Acute (9) Hallucination Assessment & Plan: Seems to be improving. Haldol prn. Monitor close. Psych will be consulted. Dr. Gutiérrez saw 02/10/17 and started seroquel 25 mg po bid. Status: Acute (10) Claustrophobia Assessment & Plan: Monitor closely. Status: Chronic (11) Anxiety Assessment & Plan: Lorazepam prn. Monitor closely. Status: Chronic (12) Hepatitis C antibody positive in blood Assessment & Plan: Check LFTs on admission. No abdominal pain. Refused liver biopsy. Follow up with GI as out patient. Status: Chronic (13) Alcohol abuse Assessment & Plan: Encourage cessation, thiamine. Check folate level. Status: Chronic (14) Elevated liver enzymes Assessment & Plan: Check LFTs. 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 Status: Acute (16) Excoriation of buttock Assessment & Plan: Turn and position every 2 hours, air mattress, zinc cream q12, off load pressure. Mobilize with therapy. Status: Acute Encounter type: subsequent encounter Qualified Code: S30.810D - Excoriation of buttock, subsequent encounter (17) Urinary retention Assessment & Plan: Rosa in place. Clear olinda urine. Voiding trial soon. Encourage fluids. Status: Acute Sagar Malhotra [facility] Feb 10, 2017 14:38
--- NOTE | 2017-02-10 15:14 | HHI.DS ---
Discharge Summary Admission Date Feb 07, 2017 at 20:29 Discharge Date: Feb 10, 2017 Admitting Diagnosis (1) Acute renal failure ICD Code: N17.9 Diagnosis: Principal (2) Abscess in epidural space of lumbar spine ICD Code: G06.1 Diagnosis: Principal Procedures Lumbar disc aspiration Brief History - From Admission This is a 71-year-old male transferred from [facility] [facility] for L3-4 disc aspirate 2/2 abnormal MRI showing edema in the L3, L4 and L5 vertebral bodies suspicious for osteomyelitis. Patient seen after procedure performed by IR. He is confused. Complains of LBP with movement. History mainly taken from EMR and discussion with STATE DIRECTOR who saw pt yesterday, IR MD and Rehab MD. 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 As per report, he has severe low back pain/lower extremity weakness after a back injury, states the neurosurgeon told him he had a bulging disc and underwent urgent lumbar surgery in [facility] about 14 days prior to admission. Postoperatively patient stated he had pain in the lower back as well as radiation down his right lower extremity and had planned for further surgery in [place] where he previously resided. The patient admits to 4-5 beers daily and boarded a plane from [facility] and had at least 3 beers en route and presented on 01/18/17 to [facility] emergency room with altered mental status. He was diagnosed with sepsis secondary to epidural abscess from postsurgical wound. Subsequent workup showed CT scan of the brain was negative. CT scan of the lumbar spine with concern of L2-3 discitis and phlegmon. He was taken emergently to IR for fluid collection drainage. His wound culture preliminary grows Staphylococcus and Pseudomonas and he underwent debridement lumbar wound dehiscence and evacuation lumbar epidural abscess on 01/20/[address] Reynolds was consulted and the patient was placed on IV cefazolin and, Zosyn and by mouth Levaquin. Dr. Lira, microbiology teacher consulted for elevations in LFT : He felt LFT derangement likely related to infection/sepsis. Hepatitis C Antibodies (+), but genotype and viral load undetectable. Patient was offered a liver biopsy but declined and should follow up with gastroenterology upon discharge. He was discharged and transferred to [facility] for comprehensive rehabilitation. Levaquin by mouth is to be continued for 8 weeks as per infectious disease. While in rehab, patient was stated to have change in mental status. Per daughter, patient's mental status have been on the decline since Monday he's been on and off confusion. States that he has been having some hallucinations Monday and Monday. Daughter says patient has been seeing bugs on the bright, being afraid to being recruited in the and be back in service, also has been seeing his brother sitting next to him. CBC/BMP: 02/09/17 0638 02/09/17 0635 Significant Findings Laboratory Tests Test 02/08/17 02/08/17 02/09/17 02/09/17 09:11 09:41 06:35 06:38 Red Blood Count 3.14 MIL/MM3 2.93 MIL/MM3 (4.50-5.90) (4.50-5.90) Hemoglobin 9.1 GM/DL 8.6 GM/DL (13.0-17.0) (13.0-17.0) Hematocrit 27.0 % 25.4 % (39.0-51.0) (39.0-51.0) Monocytes (%) (Auto) 12.4 % 14.4 % (0.0-8.0) (0.0-8.0) Lymphocytes # (Auto) 0.9 TH/MM3 0.9 TH/MM3 (1.0-4.8) (1.0-4.8) Carbon Dioxide Level 19.7 MEQ/L (21.0-32.0) Creatinine 1.47 MG/DL (0.60-1.30) Estimat Glomerular Filtration 47 ML/MIN (>89) 55 ML/MIN (>89) Rate C-Reactive Protein 17.00 MG/DL (0.00-0.30) Prothrombin Time 13.1 SEC (9.8-11.6) Neutrophils % (Manual) 71 % (16-70) Band Neutrophils % 8 % (0-6) Myelocytes 2 % (0-0) Imaging Last Impressions Needle Biopsy/Aspiration X-Ray 02/08/17 0000 Signed Impressions: Service Date/Time: Wednesday, February 08, 2017 13:15 - CONCLUSION: Uncomplicated needle biopsy of the L3-4 disc as above. Tan Abrams MD PE at Discharge GENERAL: This is a well-nourished, well-developed patient SKIN: No rashes, ecchymoses or lesions. Warm and dry. HEAD: Atraumatic. Normocephalic. No temporal or scalp tenderness. EYES: Pupils equal round and reactive. Extraocular motions intact. No scleral icterus. No injection or drainage. ENT: Nose without bleeding. Throat without erythema. Uvula midline. Airway patent. NECK: Trachea midline. No JVD or lymphadenopathy. Supple, nontender, no meningeal signs. CARDIOVASCULAR: Regular rate and rhythm without murmurs, gallops, or rubs. RESPIRATORY: Clear to auscultation. Breath sounds equal bilaterally. No wheezes , rales, or rhonchi. GASTROINTESTINAL: Abdomen soft, non-tender, nondistended. Bowel sounds normal active 4. MUSCULOSKELETAL: Extremities without clubbing, cyanosis, or edema. DTR left +3, Right +2. NEUROLOGICAL: Oriented. Motor and sensory grossly within normal limits. Normal speech. Hospital Course This is a 71-year-old male transferred from [facility] for L3-4 disc aspirate 2/2 abnormal MRI showing edema in the L3, L4 and L5 vertebral bodies suspicious for osteomyelitis. Epidural abscess status post fluid collection drainage but still with elevated inflammatory markers Status post debridement lumbar wound and evacuation of epidural abscess 01/20/[address] Springer Altered mental status, encephalopathy - Patient was on IV cefazolin, Zosyn and by mouth Levaquin. He was switched over to Levaquin by mouth 8 weeks per ID upon admission to [facility] rehabilitation - Patient continues to have low grade temperature 99.0 - CT of the brain showed unremarkable and stable CT scan of the brain. #2 stable calcification of posterior right lobe - MRI lumbar spine showed 1. Abnormal examination with edema and enhancement within the L3, L4, and L5 vertebral bodies suspicious for osteomyelitis. This appearance is similar to the prior examination. 2. Abnormal L3 to L4 disc space suspicious for dyspnea tightness along with osteomyelitis. The appearance of this level has worsened in the interim bowel with increased material in the right paracentral location and in the epidural space suspicious of epidural infection. 3. At the L3 to L4 level there is spinal canal stenosis and severe right neural foraminal narrowing. 4. The right paraspinal fluid collection at L3 to L4 at the laminectomy site has decreased in size, as above. Additionally, the fluid collection appears to extend to the superficial overlying open wound. 5. There is abnormal edema and enhancement now appreciated in the right psoas muscle suggesting extension of infection into involving this structure as well. - Status post lumbar disc aspiration studies negative to date for 48 hours continue Levaquin and IV Ancef - Neurosurgery , ID and PMR consulted -Delirium much improved. Discontinued Ativan and continue Haldol. Consulted psychiatry Acute kidney injury with urinary retention - Rosa catheter - Monitor urine output - Avoid nephrotoxins - Improving discontinue IV fluid Anemia, normocytic normochromic - Possibly secondary to postop anemia - H&H stable 9.5 -->9.3 -->9.6 --> 9.2 EtOH - Continue with thiamine and folic acid - Counseled Hepatitis C - Follow up with GI as an outpatient DVT prop SCD and early ambulation. Continue heparin PPI pantoprazole Pt Condition on Discharge: Stable Discharge Disposition: Rehab Inpatient Discharge Time: > 30 minutes Discharge Instructions DIET: Follow Instructions for: As Tolerated, No Restrictions Speech Therapy-Diet Recommends: Regular Activities you can perform: Regular-No Restrictions Activities to Avoid: Driving Follow up Referrals: Infectious Disease - 1 Week Neurosurgery - 1 Week PCP Follow-up - 1 Week New Medications: Levofloxacin (Levaquin) 750 Mg Tab 750 MG PO Q48H Infection #15 TAB Continued Medications: Bisacodyl Supp (Bisac-Evac Supp) 10 Mg Supp 10 MG RECTAL DAILY PRN CONSTIPATION #30 Cefazolin in D5w (Cefazolin/Dextrose 2 gm/100Ml) 1 Inj Inj 2 GM IV Q8HR #30 Hydrocodone-Acetaminophen (Hydrocodone-Acetaminophen) 5-325 mg Tab 1 TAB PO Q4H PRN PAIN SCALE 3 TO 5 #30 TAB Hydrocodone-Acetaminophen (Hydrocodone-Acetaminophen) 10-325 mg Tab 1 TAB PO Q6H PRN PAIN SCALE 6 TO 10 #30 TAB Lidocaine Patch 12 HR (Lidoderm Patch 12 HR) 5% Patch 1 PATCH T-DERMAL DAILY #30 Ondansetron Odt (Ondansetron Odt) 4 Mg Tab 4 MG PO Q6H PRN NAUSEA #30 TAB Pantoprazole (Pantoprazole) 40 Mg Tab 40 MG PO DAILY Heartburn Management #30 TAB Polyethylene Glycol 3350 Powder (Polyethylene Glycol 3350 Powder) 17 Gm Pow 17 GM PO DAILY #30 Thiamine (Vitamin B-1) 100 Mg Tab 100 MG PO DAILY #30 TAB Harris Ibrahim MD Feb 10, 2017 15:14
[2017-02-10] MEDS ORDERED: HALOPERIDOL LACTATE 5 MG/ML AMP IM PRN (16:00)
[2017-02-10] MEDS ORDERED: QUEtiapine FUMARATE 25 MG TAB PO SCH (21:00)
[2017-02-22] MEDS ORDERED: FAMO20TA2 PO (08:26)
[2017-02-22] MEDS ORDERED: LEVA750T PO (08:26)
[2017-02-22] MEDS ORDERED: FERR325T PO (08:26)
[2017-02-22] MEDS ORDERED: ESCI10TA PO (08:26)
[2017-02-22] MEDS ORDERED: ACET325T PO (08:26)
[2017-02-22] MEDS ORDERED: QUET1TAB7 PO (08:26)
[2017-02-22] MEDS ORDERED: MILKSUS PO (08:26)
[2017-02-22] MEDS ORDERED: LACT PO (08:26)
[2017-02-22] MEDS ORDERED: CEFA1INJ IV (08:26)
[2017-02-22] MEDS ORDERED: HEPA10003 SQ (08:26)
[2017-02-22] MEDS ORDERED: VITA500T PO (08:26)
[2017-02-22] MEDS ORDERED: ONDA4TAB7 PO (08:26)
[2017-02-22] MEDS ORDERED: SENS113T TOPICAL (08:26)
[2017-02-22] MEDS ORDERED: VANC500I3 PO (08:28)
[2017-02-22] MEDS ORDERED: HYDR-3516 PO (08:43)
[2017-02-22] MEDS ORDERED: LORA-474 PO (08:43)
== END 2017-02-10 15:47 | DRG 551 ==
LOC: N05B 20:29
PROVIDERS: ADMIT Internal Medicine; ATTEND Internal Medicine
PROC: 0S923ZX Drainage of Lumbar Vertebral Disc, Percutaneous Approach, Diagnostic (ICD-10-PCS; principal; 2017-02-08)
DX: M46.46 Discitis, unspecified, lumbar region (principal); G06.1 Intraspinal abscess and granuloma; N17.9 Acute kidney failure, unspecified; M46.26 Osteomyelitis of vertebra, lumbar region; R44.3 Hallucinations, unspecified; R41.0 Disorientation, unspecified; R33.9 Retention of urine, unspecified; D64.9 Anemia, unspecified; B19.20 Unspecified viral hepatitis C without hepatic coma; Z78.1 Physical restraint status
CPT/HCPCS: 62267; 77002; 80048; 83735; 85007; 85025; 85027; 85610; 86140; 87015; 87070; 87102; 87116; 87176; 87205; 87206; 99152; 99153; J0690; J1630; J1644; J2250; J3010; J7030